=== PATIENT | male | born 1975 ===

== ENCOUNTER 2017-04-16 15:10 | Inpatient (IN) | payer OTHER ==
--- NOTE | 2017-04-16 16:54 | ED PDOC ---
HPI: Male Pain Time Seen by Provider: 04/16/17 16:09 Chief Complaint (Nursing): Dizziness/Lightheaded Chief Complaint (Provider): Progressively Inflamed Testicles History Per: Patient History/Exam Limitations: no limitations Onset/Duration Of Symptoms: Days (ongoing for 2 weeks) Current Symptoms Are (Timing): Still Present Severity: Severe Pain Scale Rating Of: 0 Associated Symptoms: Other (dizziness) Additional Complaint(s): Víctor Winslow is a 41 year old male, with no pertinent past medical history , who presents to the emergency department for progressively inflamed testicles , ongoing for the past 2 weeks. Patient states he lifted something heavy 2 weeks ago; however, provider believes that this is not pertinent to the inflammation due to the severity of his symptoms. Associated dizziness is currently present. Denies scrotal pain to the sight of inflammation. Of note, patient is currently not on any medications. No known drug allergies. PMD: none specified Past Medical History Reviewed: Historical Data, Nursing Documentation, Vital Signs Vital Signs: Last Vital Signs Temp 100.9 F H 04/16/17 15:18 Pulse 132 H 04/16/17 15:18 Resp 20 04/16/17 15:18 BP 99/54 L 04/16/17 15:18 Pulse Ox 99 04/16/17 15:18 - Medical History PMH: No Chronic Diseases - Surgical History Surgical History: No Surg Hx - Family History Family History: States: No Known Family Hx - Social History Current smoker - smoking cessation education provided: No Ex-Smoker (has not smoked in the last 12 months): No Alcohol: None Drugs: Denies - Allergies Allergies/Adverse Reactions: Allergies Allergy/AdvReac Type Severity Reaction Status Date / Time No Known Allergies Allergy Verified 04/16/17 15:22 Review of Systems ROS Statement: Except As Marked, All Systems Reviewed And Found Negative Genitourinary Male: Positive for: Other (progressively inflamed testicles). Negative for: Scrotal Pain Neurological: Positive for: Dizziness Physical Exam - Reviewed Nursing Documentation Reviewed: Yes Vital Signs Reviewed: Yes - Physical Exam Appears: Positive for: Non-toxic, No Acute Distress Head Exam: Positive for: ATRAUMATIC, NORMOCEPHALIC Skin: Positive for: Warm, Dry Cardiovascular/Chest: Positive for: Regular Rate, Rhythm. Negative for: Murmur Respiratory: Positive for: Normal Breath Sounds. Negative for: Respiratory Distress Gastrointestinal/Abdominal: Positive for: Normal Exam, Soft. Negative for: Tenderness Male Genital Exam: Positive for: erythema (minimal), other (grossly enlarged L scrotum 7 by 5 cm, testicles are firm b/l, macerated and indurated skin, serosanguineous drainage from scrotum). Negative for: normal genitalia, bleeding, inguinal tenderness, scrotum tenderness (R), scrotum tenderness (L), testicular tenderness (R), testicular tenderness (L), urethral discharge Neurologic/Psych: Positive for: Alert, Oriented - Laboratory Results Result Diagrams: 04/16/17 17:00 04/16/17 17:00 - ECG O2 Sat by Pulse Oximetry: 99 (RA) Pulse Ox Interpretation: Normal Medical Decision Making Medical Decision Makin:09 Initial Impression: Enlarged scrotum r/o infection Differential Diagnoses include, but are not limited to, testicular cellulitis, sexually transmitted disease, testicular cancer. Scribe Attestation: Documented by Ridge Petit, acting as a scribe for Anastasia Yanes MD. Provider Scribe Attestation: All medical record entries made by the Scribe were at my direction and personally dictated by me. I have reviewed the chart and agree that the record accurately reflects my personal performance of the history, physical exam, medical decision making, and the department course for this patient. I have also personally directed, reviewed, and agree with the discharge instructions and disposition. Disposition - Clinical Impression Clinical Impression: Testicular mass - Patient ED Disposition Is Patient to be Admitted: Yes Doctor Will See Patient In The: Hospital - Disposition Disposition: Transfer of Care Disposition Time: 18:43 Condition: STABLE - Pt Status Changed To: Hospital Disposition Of: Inpatient - Admit Certification Admit to Inpatient:: After my assessment, the patient will require hospitalization for at least two midnights. This is because of the severity of symptoms shown, intensity of services needed, and/or the medical risk in this patient being treated as an outpatient.
[2017-04-16] MEDS ORDERED: Sodium Chloride 0.9% 1,000 ML IV STA (16:59)
[2017-04-16] MEDS ORDERED: ceFAZolin 1 GM in Sodium Chloride 0.9% 100 ML IVPB STA (17:01)
[2017-04-16 17:23] LABS: BASO % 0.3 % (0.0-2.0); EOS % 0.2 % (0.0-4.0); HEMOGLOBIN 11.3 g/dL (12.0-18.0); LYMPH # 1.1 K/uL (1.0-4.3); LYMPH % 24.8 % (20.0-40.0); MEAN CELL VOLUME 90.7 fl (80.0-94.0); MEAN CORPUSCULAR HEMOGLOBIN 29.7 pg (27.0-31.0); MEAN CORPUSCULAR HGB CONC 32.8 g/dL (33.0-37.0); MEAN PLATELET VOLUME 8.5 fl (7.2-11.7); MONO # 0.4 K/uL (0.0-0.8); NEUT # 2.9 K/uL (1.8-7.0); NEUT % 64.7 % (50.0-75.0); NRBC % 0.1 % (0.0-0.0); RBC 3.79 Mil/uL (4.40-5.90); RED CELL DISTRIBUTION WIDTH 16.1 % (11.5-14.5); WHITE BLOOD COUNT 4.5 K/uL (4.8-10.8)
[2017-04-16 17:45] LABS: BLOOD UREA NITROGEN 15 mg/dl (9-20); CALCIUM 8.6 mg/dL (8.4-10.2); GFR AFRICAN-AMERICAN > 60; GFR NON-AFRICAN AMERICAN > 60
--- NOTE | 2017-04-16 18:48 | US ---
HISTORY: enlarged scrotum, grossly enlarged left testis TECHNIQUE: Realtime sonography through the scrotum with color and doppler flow. COMPARISON: None Available. FINDINGS: RIGHT TESTICLE: Measures 4.5 x 1.7 x 2.9 cm. Heterogeneous echotexture is noted without evidence of discrete mass. RIGHT EPIDIDYMIS: Epididymal head measures 0.6 x 0.6 x 0.5 cm. Grossly unremarkable appearance with normal flow. LEFT TESTICLE: Measures 4 x 2.6 x 2.9 cm. Heterogeneous echotexture is also noted. LEFT EPIDIDYMIS: Epididymal head measures 0.9 x 0.8 x 1.1 cm. Grossly unremarkable appearance with normal flow. HYDROCELE: Large hydrocele seen on the right side. VARICOCELE: Mild left-sided varicocele. OTHER FINDINGS: Scrotum sac thickening/edema noted. IMPRESSION: No evidence of testicular torsion. In heterogeneous testicles seen without evidence of discrete mass lesion. Correlate clinically for colitis. Moderate to large left-sided hydrocele.
--- NOTE | 2017-04-16 19:33 | CP.PCM.HP ---
History of Present Illness - History of Present Illness History of Present Illness: 41 yo male with no significant PMH came in complaining of enlarged scrotum since 2 weeks ago after lifting heavy objects. Denied scrotal pain, dysuria or penile discharge. Admitted having on and off fever. Applied some cream on the area given by a friend but did not have any improvement. Present on Admission - Present on Admission Any Indicators Present on Admission: No History of DVT/PE: No History of Uncontrolled Diabetes: No Urinary Catheter: No Decubitus Ulcer Present: No Review of Systems - Review of Systems All systems: reviewed and no additional remarkable complaints except (aside from those mentioned above, 12 point system review were negative by me) Past Patient History - Tetanus Immunizations Tetanus Immunization: Unknown - Past Medical History & Family History Past Medical History?: No Past Family History: Reviewed and not pertinent - Past Social History Smoking Status: Never Smoked Chewing Tobacco Use: No Cigar Use: No Alcohol: None Drugs: Denies - CARDIAC Hx Cardiac Disorders: No - PULMONARY Hx Respiratory Disorders: No - NEUROLOGICAL Hx Neurological Disorder: No - HEENT Hx HEENT Problems: No - RENAL Hx Chronic Kidney Disease: No - ENDOCRINE/METABOLIC Hx Endocrine Disorders: No - HEMATOLOGICAL/ONCOLOGICAL Hx Blood Disorders: No - INTEGUMENTARY Hx Dermatological Problems: No - MUSCULOSKELETAL/RHEUMATOLOGICAL Hx Musculoskeletal Disorders: No - GASTROINTESTINAL Hx Gastrointestinal Disorders: No Hx Vomiting: No - GENITOURINARY/GYNECOLOGICAL Hx Genitourinary Disorders: No Hx Bladder Cancer: No Hx Bladder Stone: No Hx Hematuria: No Hx Incontinence: No Hx Prostate Cancer: No Hx Prostate Problems: No Hx Reproductive Disorders: No Hx Sexually Transmitted Disorders: No Hx Urinary Tract Infection: No - PSYCHIATRIC Hx Psychophysiologic Disorder: No Hx Substance Use: No - SURGICAL HISTORY Hx Surgeries: No - ANESTHESIA Hx Anesthesia: No Hx Anesthesia Reactions: No Hx Malignant Hyperthermia: No Meds Allergies/Adverse Reactions: Allergies Allergy/AdvReac Type Severity Reaction Status Date / Time No Known Allergies Allergy Verified 04/16/17 15:22 Physical Exam - Constitutional Appears: No Acute Distress - Head Exam Head Exam: ATRAUMATIC - Eye Exam Eye Exam: absent: Scleral icterus - ENT Exam ENT Exam: Mucous Membranes Moist - Neck Exam Neck exam: Negative for: Meningismus - Respiratory Exam Respiratory Exam: absent: Rhonchi, Wheezes, Respiratory Distress - Cardiovascular Exam Cardiovascular Exam: REGULAR RHYTHM, +S1, +S2 - GI/Abdominal Exam GI & Abdominal Exam: Soft. absent: Tenderness - Rectal Exam Rectal Exam: Deferred - Exam Exam: Scrotal Swelling (both scrotum enlarged and firm, non-tender; left scrotum much bigger with denuded area). absent: Testicular Tenderness, Uretheral Discharge - Extremities Exam Extremities exam: Negative for: pedal edema - Back Exam Back exam: absent: tenderness - Neurological Exam Neurological exam: Alert, Oriented x3 - Psychiatric Exam Psychiatric exam: Normal Affect - Skin Skin Exam: Dry, Intact Results - Vital Signs Recent Vital Signs: Last Vital Signs Temp 100.9 F H 04/16/17 15:18 Pulse 132 H 04/16/17 15:18 Resp 20 04/16/17 15:18 BP 99/54 L 04/16/17 15:18 Pulse Ox 99 04/16/17 18:43 - Labs Result Diagrams: 04/16/17 17:00 04/16/17 17:00 Labs: Laboratory Results - last 24 hr 04/16/17 04/16/17 17:00 17:00 WBC 4.5 L RBC 3.79 L Hgb 11.3 L Hct 34.4 L MCV 90.7 MCH 29.7 MCHC 32.8 L RDW 16.1 H Plt Count 119 L MPV 8.5 Neut % (Auto) 64.7 Lymph % (Auto) 24.8 [place] % (Auto) 10.0 Eos % (Auto) 0.2 Baso % (Auto) 0.3 Neut # 2.9 Lymph # 1.1 [place] # 0.4 Eos # 0.0 Baso # 0.0 ESR 23 H Sodium 131 L Potassium 4.1 Chloride 98 Carbon Dioxide 24 Anion Gap 13 BUN 15 Creatinine 0.8 Est GFR ( Amer) > 60 Est GFR (Non-Af Amer) > 60 Random Glucose 136 H Calcium 8.6 Assessment & Plan (1) Bilateral hydrocele Status: Acute Comment: admit to med/surg. urology consult with Dr Estes. blood culture x 2. urine culture. Rocephin 1gm IV daily. Doxycycline 100mg PO BID (2) Acute epididymitis Status: Acute Comment: blood culture and urine culture. on Rocephin and Doxycycline (3) Hyponatremia Status: Acute Comment: IV hydration with NSS. BMP in am
[2017-04-16] MEDS: Sodium Chloride 0.9% 1,000 ML IV SCH (20:42)
[2017-04-16 22:20] LABS: URINE BACTERIA RARE (<OCC); URINE BILIRUBIN NEGATIVE (NEGATIVE); URINE BLOOD SMALL (NEGATIVE); URINE CLARITY CLEAR (Clear); URINE COLOR YELLOW (YELLOW); URINE GLUCOSE (UA) NEG (Normal); URINE LEUKOCYTE ESTERASE NEG Leu/uL (Negative); URINE NITRATE NEGATIVE (NEGATIVE); URINE PROTEIN 30 mg/dL (NEGATIVE)
[2017-04-17] MEDS: Sodium Chloride 0.9% 1,000 ML IV SCH ×2 (06:00→16:49)
[2017-04-17 07:59] LABS: BASO % 0.3 % (0.0-2.0); EOS % 0.3 % (0.0-4.0); HEMOGLOBIN 9.7 g/dL (12.0-18.0); LYMPH # 0.7 K/uL (1.0-4.3); LYMPH % 21.3 % (20.0-40.0); MEAN CELL VOLUME 90.9 fl (80.0-94.0); MEAN CORPUSCULAR HEMOGLOBIN 30.3 pg (27.0-31.0); MEAN CORPUSCULAR HGB CONC 33.3 g/dL (33.0-37.0); MEAN PLATELET VOLUME 8.7 fl (7.2-11.7); MONO # 0.3 K/uL (0.0-0.8); MONO % 8.1 % (0.0-10.0); NEUT # 2.3 K/uL (1.8-7.0); NRBC % 0.1 % (0.0-0.0); RBC 3.2 Mil/uL (4.40-5.90); RED CELL DISTRIBUTION WIDTH 16.2 % (11.5-14.5); WHITE BLOOD COUNT 3.2 K/uL (4.8-10.8)
[2017-04-17 08:09] LABS: BLOOD UREA NITROGEN 13 mg/dl (9-20); CALCIUM 7.7 mg/dL (8.4-10.2); GFR AFRICAN-AMERICAN > 60; GFR NON-AFRICAN AMERICAN > 60
[2017-04-17 08:24] LABS: INR 1.18 (0.92-1.08); PARTIAL THROMBOPLASTIN TIME 31.7 SECONDS (23.3-32.5); PROTHROMBIN TIME 12.3 SECONDS (9.6-11.2)
--- NOTE | 2017-04-17 09:51 | CP.PCM.PN ---
Subjective - Date & Time of Evaluation Date of Evaluation: 04/17/17 Time of Evaluation: 09:44 - Subjective Subjective: 41 year ol hisp male admitted with testicular pain for two weeks, Us shows hydrocele with no sign of epididmitis Pt is afibrile,ua shows no wbcc neg le but sig hematuria. Dx L hydrocele ,fever and microhematuria unknown etiology. Suggest CT scan ab.pelv. repeat ua and urine cS will follow. Objective - Vital Signs/Intake and Output Vital Signs (last 24 hours): Temp Pulse Resp BP Pulse Ox 100.2 F H 112 H 18 95/53 L 97 04/17/17 07:29 04/17/17 07:29 04/17/17 07:29 04/17/17 07:29 04/17/17 07:29 - Medications Medications: Current Medications Acetaminophen (Tylenol 325mg Tab) 650 mg PO Q4 PRN PRN Reason: Fever >100.4 F Last Admin: 04/16/17 20:42 Dose: 650 mg Doxycycline Hyclate (Doryx) 100 mg PO Q12 [facility] Last Admin: 04/17/17 09:18 Dose: 100 mg Famotidine (Pepcid) 20 mg PO BID [facility] Last Admin: 04/17/17 09:18 Dose: 20 mg Ceftriaxone Sodium 1 gm/ (Sodium Chloride) 100 mls @ 100 mls/hr IVPB DAILY [facility] Last Admin: 04/17/17 09:20 Dose: 100 mls/hr Sodium Chloride (Sodium Chloride 0.9%) 1,000 mls @ 125 mls/hr IV .Q8H [facility] Stop: 04/17/17 19:53 Last Admin: 04/17/17 06:00 Dose: 125 mls/hr - Labs Labs: 04/17/17 06:15 04/17/17 06:15 PT 12.3 SECONDS (9.6-11.2) H 04/17/17 06:15 INR 1.18 (0.92-1.08) H 04/17/17 06:15 APTT 31.7 SECONDS (23.3-32.5) 04/17/17 06:15
--- NOTE | 2017-04-17 14:50 | CT ---
PROCEDURE: CT abdomen pelvis dated 04/17/2017 HISTORY: Hematuria. Left-sided hydrocele. COMPARISON: None. TECHNIQUE: Contiguous helical/transaxial images of the abdomen and pelvis. Oral contrast was administered. No IV contrast given. Coronal and Sagittal reformats generated. Radiation dose: Total exam DLP = 624.43 mGy-cm. This CT exam was performed using one or more of the following dose reduction techniques: Automated exposure control, adjustment of the mA and/or kV according to patient size, and/or use of iterative reconstruction technique. FINDINGS: LOWER THORAX: Mild atelectasis and or scarring changes right lung base associated with minor pleural thickening and few tiny pleural based calcifications in the posterior sulcus felt to be postinflammatory dystrophic type calcification. No additional pleural based calcifications seen in the lung bases to suggest asbestos exposure however followup CT scan of the chest may be prudent. . No evidence of effusion. No basilar pneumothorax. LIVER: Liver is bowel mildly enlarged measuring just over 20 cm in CC dimension. Liver demonstrates normal attenuation pattern without obvious hepatic mass collection or calcification. . GALLBLADDER AND BILE DUCTS: Gallbladder is appears incompletely distended. No evidence of intraluminal gallbladder calculi PANCREAS: Visualized portions of the pancreas unremarkable. SPLEEN: Spleen exhibits normal size and attenuation pattern without mass collection or calcification. ADRENALS: Enlarged bilateral adrenal glands left greater than right. KIDNEYS AND URETERS: Kidneys exhibit relatively symmetric size. . There is a nonobstructing calculus lower pole left kidney. No other on left-sided no right-sided renal calculi identified. No evidence of right or left-sided hydronephrosis. Note is made of mild infiltration changes within the perinephric fat bilaterally nonspecific and of uncertain etiology. Clinical correlation with urinalysis recommended. BLADDER: Urinary bladder is physiologically distended. No evidence of intraluminal urinary bladder calculi. REPRODUCTIVE: Large left-sided scrotal hydrocele. APPENDIX: Partially air and debris filled nondilated appendix of best seen on the axial image number [id number] and coronal series 61 image number [id number]. No periappendiceal inflammatory changes. BOWEL: Evaluation of the bowel is limited due to the lack of oral contrast material. The stomach is incompletely distended with food debris liquid and air. Incomplete distension presumably accounts for slight thick-walled appearance. Visualized loops of small bowel exhibit normal contour and caliber. No evidence acute mechanical small bowel obstruction. PERITONEUM: No gross free intraperitoneal air. , There is a small amount of infiltration and fluid within the paracolic gutter on the right and possibly on the left side. LYMPH NODES: No significant bulky adenopathy VASCULATURE: No evidence of aortic aneurysm. BONES: No evidence of acute compression fracture nor retropulsed fragments visualized lower thoracic or lumbar spine. Mild multilevel degenerative spondylosis. Small sclerotic density left femoral head could represent bone island or osteoma left femoral head. OTHER FINDINGS: None. IMPRESSION: Mild chronic appearing scarring/atelectasis and pleural thickening associate with a few tiny calcifications right lung base. Findings are likely postinflammatory and not felt to represent prior asbestos exposure however followup CT scan chest could be performed to confirm. Mild hepatomegaly. Enlarged bilateral adrenal glands left larger than right. Small nonobstructing calcification lower pole left kidney. No evidence of additional calculi or hydronephrosis. Infiltration changes of perinephric fat bilaterally nonspecific. Rule out perinephric fat nonspecific inflammation. Large left-sided scrotal hydrocele.
--- NOTE | 2017-04-17 16:14 | CP.PCM.PN ---
Subjective - Date & Time of Evaluation Date of Evaluation: 04/17/17 Time of Evaluation: 15:00 - Subjective Subjective: Patient seen and examined bedside. Feeling a little better but still febrile , Tmax 103, with chills and weak. no acute issues overnight CT abdomen and pelvis showed no acute pathology Objective - Vital Signs/Intake and Output Vital Signs (last 24 hours): Temp Pulse Resp BP Pulse Ox 103 F H 118 H 20 96/63 L 98 04/17/17 16:05 04/17/17 16:05 04/17/17 16:05 04/17/17 16:05 04/17/17 16:05 - Medications Medications: Current Medications Acetaminophen (Tylenol 325mg Tab) 650 mg PO Q4 PRN PRN Reason: Fever >100.4 F Last Admin: 04/17/17 15:47 Dose: 650 mg Doxycycline Hyclate (Doryx) 100 mg PO Q12 [facility] Last Admin: 04/17/17 09:18 Dose: 100 mg Famotidine (Pepcid) 20 mg PO BID [facility] Last Admin: 04/17/17 09:18 Dose: 20 mg Ceftriaxone Sodium 1 gm/ (Sodium Chloride) 100 mls @ 100 mls/hr IVPB DAILY [facility] Last Admin: 04/17/17 09:20 Dose: 100 mls/hr Sodium Chloride (Sodium Chloride 0.9%) 1,000 mls @ 125 mls/hr IV .Q8H [facility] Stop: 04/17/17 19:53 Last Admin: 04/17/17 06:00 Dose: 125 mls/hr - Labs Labs: 04/17/17 06:15 04/17/17 06:15 PT 12.3 SECONDS (9.6-11.2) H 04/17/17 06:15 INR 1.18 (0.92-1.08) H 04/17/17 06:15 APTT 31.7 SECONDS (23.3-32.5) 04/17/17 06:15 - Constitutional Appears: Non-toxic, No Acute Distress - Head Exam Head Exam: ATRAUMATIC, NORMAL INSPECTION, NORMOCEPHALIC - Eye Exam Eye Exam: EOMI, Normal appearance, PERRL Pupil Exam: NORMAL ACCOMODATION - ENT Exam ENT Exam: Mucous Membranes Moist, Normal Exam - Neck Exam Neck Exam: Full ROM, Normal Inspection - Respiratory Exam Respiratory Exam: Clear to Ausculation Bilateral, NORMAL BREATHING PATTERN. absent: Rales, Wheezes - Cardiovascular Exam Cardiovascular Exam: REGULAR RHYTHM, +S1, +S2. absent: RRR - GI/Abdominal Exam GI & Abdominal Exam: Soft, Normal Bowel Sounds. absent: Distended, Guarding, Tenderness, Rebound - Rectal Exam Rectal Exam: Deferred - Exam Exam: Scrotal Swelling. absent: Testicular Tenderness, Uretheral Discharge External exam: Lacerations (large skin maceration from shaft of penis to perineum with no fluctuation , dry no foul smelling) - Extremities Exam Extremities Exam: Full ROM, Normal Capillary Refill, Normal Inspection. absent : Calf Tenderness, Pedal Edema - Back Exam Back Exam: NORMAL INSPECTION - Neurological Exam Neurological Exam: Alert, Awake, CN II-XII Intact, Oriented x3 - Psychiatric Exam Psychiatric exam: Normal Affect, Normal Mood - Skin Skin Exam: Dry, Warm Assessment and Plan - Assessment and Plan (Free Text) Assessment: 41 yo male with no significant PMH came in complaining of enlarged scrotum for 1 month, after lifting heavy objects and macerate skin for 4 days. Denied scrotal pain, dysuria or penile discharge. Admitted having on and off fever. Applied some cream on the area given by a friend but did not have any improvement. In ER found to have Tmax 102. 1. Bilateral hydrocele with suspected acute epididymitis still febrile Follow up blood, urine and urethral cultures check HIV, RPR, G&c cultures Ct abdomen and pelvis showed no acute pathology urology consult appreciated Continue Rocephin and Doxycycline 2. Hyponatremia resolved with IVF 3. Pancytopenia WBC 3 Hgb 9.7 plt 94 K unclear etiology Send anemia work up Check HIV , hepatitis status Check CMP 4. DVT prophylaxis SCD
[2017-04-17 19:25] LABS: ALB/GLOB RATIO 0.8 (1.0-2.1); ALBUMIN 2.5 g/dL (3.5-5.0); ALT/SGPT 72 U/L (21-72); AST/SGOT 75 U/L (17-59); BLOOD UREA NITROGEN 11 mg/dl (9-20); CALCIUM 7.8 mg/dL (8.4-10.2); GFR AFRICAN-AMERICAN > 60; GFR NON-AFRICAN AMERICAN > 60
[2017-04-17 19:49] LABS: IRON 57 ug/dL (49-181)
[2017-04-17 19:59] LABS: % IRON SATURATION 23 % (20-55); TOTAL IRON BINDING CAPACITY 243 ug/dL (250-450)
[2017-04-18 07:11] LABS: SQUAMOUS EPITHIAL < 1 /hpf (0-5); URINE BILIRUBIN NEGATIVE (NEGATIVE); URINE BLOOD MODERATE (NEGATIVE); URINE CLARITY CLEAR (Clear); URINE COLOR YELLOW (YELLOW); URINE GLUCOSE (UA) 150 mg/dL (Normal); URINE LEUKOCYTE ESTERASE NEG Leu/uL (Negative); URINE NITRATE NEGATIVE (NEGATIVE); URINE PROTEIN NEGATIVE (NEGATIVE)
[2017-04-18 07:30] LABS: EOS % 0.4 % (0.0-4.0); HEMOGLOBIN 9.5 g/dL (12.0-18.0); LYMPH # 0.8 K/uL (1.0-4.3); LYMPH % 25.7 % (20.0-40.0); MEAN CELL VOLUME 91.6 fl (80.0-94.0); MEAN CORPUSCULAR HEMOGLOBIN 29.8 pg (27.0-31.0); MEAN CORPUSCULAR HGB CONC 32.5 g/dL (33.0-37.0); MEAN PLATELET VOLUME 9.1 fl (7.2-11.7); MONO # 0.2 K/uL (0.0-0.8); MONO % 6.4 % (0.0-10.0); NEUT # 2.1 K/uL (1.8-7.0); NEUT % 66.5 % (50.0-75.0); NRBC % 0.1 % (0.0-0.0); RBC 3.19 Mil/uL (4.40-5.90); RED CELL DISTRIBUTION WIDTH 16.7 % (11.5-14.5); WHITE BLOOD COUNT 3.1 K/uL (4.8-10.8)
--- NOTE | 2017-04-18 10:59 | CP.PCM.PN ---
Subjective - Date & Time of Evaluation Date of Evaluation: 04/18/17 Time of Evaluation: 11:00 - Subjective Subjective: Patient seen and examined bedside. Feeling better but still persistently febrile with Tmax 103 last 24 hours.Denies any CP, SOb, palpittaions, PND BP stable WBC Objective - Vital Signs/Intake and Output Vital Signs (last 24 hours): Temp Pulse Resp BP Pulse Ox 98.6 F 100 H 20 103/65 99 04/18/17 08:27 04/18/17 08:27 04/18/17 08:27 04/18/17 08:27 04/18/17 08:27 - Medications Medications: Current Medications Acetaminophen (Tylenol 325mg Tab) 650 mg PO Q4 PRN PRN Reason: Fever >100.4 F Last Admin: 04/18/17 01:54 Dose: 650 mg Doxycycline Hyclate (Doryx) 100 mg PO Q12 [facility] Last Admin: 04/18/17 09:18 Dose: 100 mg Famotidine (Pepcid) 20 mg PO BID [facility] Last Admin: 04/18/17 09:18 Dose: 20 mg Ceftriaxone Sodium 1 gm/ (Sodium Chloride) 100 mls @ 100 mls/hr IVPB DAILY [facility] Last Admin: 04/18/17 09:17 Dose: 100 mls/hr Vancomycin HCl 1 gm/ Sodium (Chloride) 250 mls @ 166.667 mls/hr IVPB Q12 [facility] Last Admin: 04/18/17 09:17 Dose: 166.667 mls/hr - Labs Labs: 04/18/17 06:30 04/17/17 18:30 PT 12.3 SECONDS (9.6-11.2) H 04/17/17 06:15 INR 1.18 (0.92-1.08) H 04/17/17 06:15 APTT 31.7 SECONDS (23.3-32.5) 04/17/17 06:15 - Constitutional Appears: Non-toxic, No Acute Distress - Head Exam Head Exam: ATRAUMATIC, NORMAL INSPECTION, NORMOCEPHALIC - Eye Exam Eye Exam: EOMI, Normal appearance, PERRL Pupil Exam: NORMAL ACCOMODATION - ENT Exam ENT Exam: Mucous Membranes Moist, Normal Exam - Neck Exam Neck Exam: Full ROM, Normal Inspection - Respiratory Exam Respiratory Exam: Clear to Ausculation Bilateral, NORMAL BREATHING PATTERN. absent: Rales, Rhonchi, Wheezes - Cardiovascular Exam Cardiovascular Exam: REGULAR RHYTHM, RRR, +S1, +S2. absent: JVD - GI/Abdominal Exam GI & Abdominal Exam: Soft, Normal Bowel Sounds. absent: Distended, Guarding, Tenderness, Rebound - Rectal Exam Rectal Exam: Deferred - Exam Exam: Scrotal Swelling. absent: Testicular Tenderness, Uretheral Discharge External exam: Lacerations (large skin maceration from shaft of penis to perineum with no fluctuation or faul smell) - Extremities Exam Extremities Exam: Full ROM, Normal Capillary Refill, Normal Inspection. absent : Pedal Edema - Back Exam Back Exam: NORMAL INSPECTION - Neurological Exam Neurological Exam: Alert, Awake, CN II-XII Intact, Oriented x3 - Psychiatric Exam Psychiatric exam: Normal Affect, Normal Mood - Skin Skin Exam: Dry, Normal Color, Warm Assessment and Plan - Assessment and Plan (Free Text) Assessment: 41 yo male with no significant PMH came in complaining of enlarged scrotum for 1 month, after lifting heavy objects and macerate skin for 4 days. Denied scrotal pain, dysuria or penile discharge. Admitted having on and off fever. Applied some cream on the area given by a friend but did not have any improvement. In ER found to have Tmax 102. Urology consulted, cultures sent and started on Doxycyclinand rocephine IV. Continuous to be persistantly febrile. 1. Bilateral hydrocele with suspected acute epididymitis still febrile, Tmax 103 follow up blood and urine cx Wound cx growing staph aureus and gram negative doc Continue rocephin and Doxycycline . Started Vancomycin IV ID consulted HIV - not reactive f/U RPR, G&c cultures Ct abdomen and pelvis showed no acute pathology urology consult appreciated Continue current management 2. Hyponatremia on IVF 3. Pancytopenia WBC 3 Hgb 9.7 plt 94 K unclear etiology anemia work up, showed normal Vitamin B12 ,Very elevated Ferritin levels 3040 HIV not reactive hepatitis status -negative Hematology eval ? 4. DVT prophylaxis SCD
--- NOTE | 2017-04-18 11:01 | CP.PCM.PN ---
Subjective - Date & Time of Evaluation Date of Evaluation: 04/18/17 Time of Evaluation: 10:58 - Subjective Subjective: Ultrasound of scrotum shows hydrocele without evidence, ct shows small non obstructing stone in kidney which would explain micro hematuria, no explanation for fever. A non obstructing calculi benign hydrocele. P no further gu Rx on this admission. [place] Objective - Vital Signs/Intake and Output Vital Signs (last 24 hours): Temp Pulse Resp BP Pulse Ox 98.6 F 100 H 20 103/65 99 04/18/17 08:27 04/18/17 08:27 04/18/17 08:27 04/18/17 08:27 04/18/17 08:27 - Medications Medications: Current Medications Acetaminophen (Tylenol 325mg Tab) 650 mg PO Q4 PRN PRN Reason: Fever >100.4 F Last Admin: 04/18/17 01:54 Dose: 650 mg Doxycycline Hyclate (Doryx) 100 mg PO Q12 [facility] Last Admin: 04/18/17 09:18 Dose: 100 mg Famotidine (Pepcid) 20 mg PO BID [facility] Last Admin: 04/18/17 09:18 Dose: 20 mg Ceftriaxone Sodium 1 gm/ (Sodium Chloride) 100 mls @ 100 mls/hr IVPB DAILY [facility] Last Admin: 04/18/17 09:17 Dose: 100 mls/hr Vancomycin HCl 1 gm/ Sodium (Chloride) 250 mls @ 166.667 mls/hr IVPB Q12 [facility] Last Admin: 04/18/17 09:17 Dose: 166.667 mls/hr - Labs Labs: 04/18/17 06:30 04/17/17 18:30 PT 12.3 SECONDS (9.6-11.2) H 04/17/17 06:15 INR 1.18 (0.92-1.08) H 04/17/17 06:15 APTT 31.7 SECONDS (23.3-32.5) 04/17/17 06:15
--- NOTE | 2017-04-18 11:37 | CP.PCM.CON ---
History of Present Illness - History of Present Illness History of Present Illness: Infectious Disease Consultation Note- asked to see this patient at the request of Hospitalist for fever. HPI- Pt. is a 41 year old male with no PMH who was admitted to the hospital with c/o enlarged scrotum for the past 4 weeks. Pt. explains he lifted a heavy object 4 weeks ago and after that he developed scrotal swelling and pain and apaprently he applied some ointment given by a friend on the area and since then he has developed skin damage to the region along with discharge from the scrotal region . He also states he has been having fever. He denies any dysurea and denies any penile discharge. He denies ever having anything similar to this before. Denies any animal or insect bites to the region. Denies any cough, denies any [place], denies any sob, denies any chest pain, denies any abd. pain, denies any diarrhea On US and Ct report he is found to have large left hydroele Review of Systems - Review of Systems Review of Systems: as stated in HPI. Past Patient History - Tetanus Immunizations Tetanus Immunization: Unknown - Past Medical History & Family History Past Medical History?: No - Past Social History Smoking Status: Never Smoked Alcohol: None Drugs: Denies Home Situation {Lives}: With Family - CARDIAC Hx Cardiac Disorders: No - PULMONARY Hx Respiratory Disorders: No - NEUROLOGICAL Hx Neurological Disorder: No - HEENT Hx HEENT Problems: No - RENAL Hx Chronic Kidney Disease: No - ENDOCRINE/METABOLIC Hx Endocrine Disorders: No - HEMATOLOGICAL/ONCOLOGICAL Hx Blood Disorders: No - INTEGUMENTARY Hx Dermatological Problems: No - MUSCULOSKELETAL/RHEUMATOLOGICAL Hx Falls: No - GASTROINTESTINAL Hx Gastrointestinal Disorders: No Hx Vomiting: No - GENITOURINARY/GYNECOLOGICAL Hx Genitourinary Disorders: No - PSYCHIATRIC Hx Psychophysiologic Disorder: No Hx Substance Use: No - SURGICAL HISTORY Hx Surgeries: No - ANESTHESIA Hx Anesthesia: No Hx Anesthesia Reactions: No Hx Malignant Hyperthermia: No Meds Allergies/Adverse Reactions: Allergies Allergy/AdvReac Type Severity Reaction Status Date / Time No Known Allergies Allergy Verified 04/16/17 15:22 - Medications Medications: Current Medications Acetaminophen (Tylenol 325mg Tab) 650 mg PO Q4 PRN PRN Reason: Fever >100.4 F Last Admin: 04/18/17 01:54 Dose: 650 mg Doxycycline Hyclate (Doryx) 100 mg PO Q12 [facility] Last Admin: 04/18/17 09:18 Dose: 100 mg Famotidine (Pepcid) 20 mg PO BID [facility] Last Admin: 04/18/17 09:18 Dose: 20 mg Ceftriaxone Sodium 1 gm/ (Sodium Chloride) 100 mls @ 100 mls/hr IVPB DAILY [facility] Last Admin: 04/18/17 09:17 Dose: 100 mls/hr Vancomycin HCl 1 gm/ Sodium (Chloride) 250 mls @ 166.667 mls/hr IVPB Q12 [facility] Last Admin: 04/18/17 09:17 Dose: 166.667 mls/hr Vancomycin HCl 1 gm/ Sodium (Chloride) 250 mls @ 166.667 mls/hr IVPB DAILY [facility] Physical Exam - Constitutional Appears: No Acute Distress - Head Exam Head Exam: ATRAUMATIC - Eye Exam Eye Exam: PERRL - ENT Exam ENT Exam: Normal Oropharynx - Respiratory Exam Respiratory Exam: Clear to Auscultation Bilateral, NORMAL BREATHING PATTERN - Cardiovascular Exam Cardiovascular Exam: RRR, +S1, +S2 - GI/Abdominal Exam GI & Abdominal Exam: Normal Bowel Sounds, Soft Additional comments: NT, ND - Exam Additional comments: scrotal swelling and edema with areas of denuded sloughed off skin and minimal clear discharge, slightly erythematous - Extremities Exam Extremities exam: Positive for: normal inspection Results - Vital Signs Recent Vital Signs: Last Vital Signs Temp 98.6 F 04/18/17 08:27 Pulse 100 H 04/18/17 08:27 Resp 20 04/18/17 08:27 BP 103/65 04/18/17 08:27 Pulse Ox 99 04/18/17 08:27 - Labs Result Diagrams: 04/18/17 06:30 04/17/17 18:30 Labs: Laboratory Results - last 24 hr 04/17/17 04/17/17 04/17/17 09:53 18:30 18:30 WBC RBC Hgb Hct MCV MCH MCHC RDW Plt Count MPV Neut % (Auto) Lymph % (Auto) [place] % (Auto) Eos % (Auto) Baso % (Auto) Neut # Lymph # [place] # Eos # Baso # Retic Count 2.6 H Sodium Potassium Chloride Carbon Dioxide Anion Gap BUN Creatinine Est GFR ( Amer) Est GFR (Non-Af Amer) Random Glucose Calcium Iron TIBC % Saturation Transferrin Ferritin Total Bilirubin AST ALT Alkaline Phosphatase Total Protein Albumin Globulin Albumin/Globulin Ratio Vitamin B12 Urine Color Yellow Urine Clarity Clear Urine pH 7.0 Ur Specific [place] 1.005 Urine Protein Negative Urine Glucose (UA) 150 Urine Ketones Negative Urine Blood Moderate Urine Nitrate Negative Urine Bilirubin Negative Urine Urobilinogen 2.0 Ur Leukocyte Esterase Neg Urine RBC (Auto) 2 Urine Microscopic WBC < 1 Ur Squamous Epith Cells < 1 HIV-1 Ab Rapid Screen Non reactive 04/17/17 04/17/17 04/17/17 18:30 18:30 18:30 WBC RBC Hgb Hct MCV MCH MCHC RDW Plt Count MPV Neut % (Auto) Lymph % (Auto) [place] % (Auto) Eos % (Auto) Baso % (Auto) Neut # Lymph # [place] # Eos # Baso # Retic Count Sodium 130 L Potassium 3.8 Chloride 101 Carbon Dioxide 23 Anion Gap 10 BUN 11 Creatinine 0.7 L Est GFR ( Amer) > 60 Est GFR (Non-Af Amer) > 60 Random Glucose 203 H Calcium 7.8 L Iron 57 TIBC 243 L % Saturation 23 Transferrin 170.47 L Ferritin 3040.0 Total Bilirubin 1.3 AST 75 H ALT 72 Alkaline Phosphatase 111 Total Protein 5.6 L Albumin 2.5 L Globulin 3.0 Albumin/Globulin Ratio 0.8 L Vitamin B12 > 1000 H Urine Color Urine Clarity Urine pH Ur Specific [place] Urine Protein Urine Glucose (UA) Urine Ketones Urine Blood Urine Nitrate Urine Bilirubin Urine Urobilinogen Ur Leukocyte Esterase Urine RBC (Auto) Urine Microscopic WBC Ur Squamous Epith Cells HIV-1 Ab Rapid Screen 04/18/17 06:30 WBC 3.1 L RBC 3.19 L Hgb 9.5 L Hct 29.2 L MCV 91.6 MCH 29.8 MCHC 32.5 L RDW 16.7 H Plt Count 78 L MPV 9.1 Neut % (Auto) 66.5 Lymph % (Auto) 25.7 [place] % (Auto) 6.4 Eos % (Auto) 0.4 Baso % (Auto) 1.0 Neut # 2.1 Lymph # 0.8 L [place] # 0.2 Eos # 0.0 Baso # 0.0 Retic Count Sodium Potassium Chloride Carbon Dioxide Anion Gap BUN Creatinine Est GFR ( Amer) Est GFR (Non-Af Amer) Random Glucose Calcium Iron TIBC % Saturation Transferrin Ferritin Total Bilirubin AST ALT Alkaline Phosphatase Total Protein Albumin Globulin Albumin/Globulin Ratio Vitamin B12 Urine Color Urine Clarity Urine pH Ur Specific [place] Urine Protein Urine Glucose (UA) Urine Ketones Urine Blood Urine Nitrate Urine Bilirubin Urine Urobilinogen Ur Leukocyte Esterase Urine RBC (Auto) Urine Microscopic WBC Accession No. : [id number] Patient Name / ID : TONG Smith / [id number] Exam Date : 04/17/2017 13:40:09 ( Approved ) Study Comment : Sex / Age : M / 41Y Creator : Facundo Soto MD Dictator : Facundo Soto MD Hospitality Recruiter : Appellate Conferee : Facundo Soto MD Approver2 : Report Date : 04/17/2017 14:43:53 My Comment : PROCEDURE: CT abdomen pelvis dated 04/17/2017 HISTORY: Hematuria. Left-sided hydrocele. COMPARISON: None. TECHNIQUE: Contiguous helical/transaxial images of the abdomen and pelvis. Oral contrast was administered. No IV contrast given. Coronal and Sagittal reformats generated. Radiation dose: Total exam DLP = 624.43 mGy-cm. This CT exam was performed using one or more of the following dose reduction techniques: Automated exposure control, adjustment of the mA and/or kV according to patient size, and/or use of iterative reconstruction technique. FINDINGS: LOWER THORAX: Mild atelectasis and or scarring changes right lung base associated with minor pleural thickening and few tiny pleural based calcifications in the posterior sulcus felt to be postinflammatory dystrophic type calcification. No additional pleural based calcifications seen in the lung bases to suggest asbestos exposure however followup CT scan of the chest may be prudent. . No evidence of effusion. No basilar pneumothorax. LIVER: Liver is bowel mildly enlarged measuring just over 20 cm in CC dimension. Liver demonstrates normal attenuation pattern without obvious hepatic mass collection or calcification. . GALLBLADDER AND BILE DUCTS: Gallbladder is appears incompletely distended. No evidence of intraluminal gallbladder calculi PANCREAS: Visualized portions of the pancreas unremarkable. SPLEEN: Spleen exhibits normal size and attenuation pattern without mass collection or calcification. ADRENALS: Enlarged bilateral adrenal glands left greater than right. KIDNEYS AND URETERS: Kidneys exhibit relatively symmetric size. . There is a nonobstructing calculus lower pole left kidney. No other on left-sided no right-sided renal calculi identified. No evidence of right or left-sided hydronephrosis. Note is made of mild infiltration changes within the perinephric fat bilaterally nonspecific and of uncertain etiology. Clinical correlation with urinalysis recommended. BLADDER: Urinary bladder is physiologically distended. No evidence of intraluminal urinary bladder calculi. REPRODUCTIVE: Large left-sided scrotal hydrocele. APPENDIX: Partially air and debris filled nondilated appendix of best seen on the axial image number [id number] and coronal series 61 image number [id number]. No periappendiceal inflammatory changes. BOWEL: Evaluation of the bowel is limited due to the lack of oral contrast material. The stomach is incompletely distended with food debris liquid and air. Incomplete distension presumably accounts for slight thick-walled appearance. Visualized loops of small bowel exhibit normal contour and caliber. No evidence acute mechanical small bowel obstruction. PERITONEUM: No gross free intraperitoneal air. , There is a small amount of infiltration and fluid within the paracolic gutter on the right and possibly on the left side. LYMPH NODES: No significant bulky adenopathy VASCULATURE: No evidence of aortic aneurysm. BONES: No evidence of acute compression fracture nor retropulsed fragments visualized lower thoracic or lumbar spine. Mild multilevel degenerative spondylosis. Small sclerotic density left femoral head could represent bone island or osteoma left femoral head. OTHER FINDINGS: None. IMPRESSION: Mild chronic appearing scarring/atelectasis and pleural thickening associate with a few tiny calcifications right lung base. Findings are likely postinflammatory and not felt to represent prior asbestos exposure however followup CT scan chest could be performed to confirm. Mild hepatomegaly. Enlarged bilateral adrenal glands left larger than right. Small nonobstructing calcification lower pole left kidney. No evidence of additional calculi or hydronephrosis. Infiltration changes of perinephric fat bilaterally nonspecific. Rule out perinephric fat nonspecific inflammation. Large left-sided scrotal hydrocele.Ur Squamous Epith Cells HIV-1 Ab Rapid Screen Microbiology 04/16/17 21:48 Urine Urine Culture - Final No Growth (<1,000 CFU/ML) 04/16/17 17:00 Scrotum Gram Stain - Preliminary 04/16/17 17:00 Scrotum Wound Culture - Preliminary Gram Negative Amadeo Staphylococcus Aureus 04/16/17 21:48 Blood-Venous Blood Culture - Preliminary NO GROWTH AFTER 24 HOURS Assessment & Plan (1) Left hydrocele Status: Acute - Assessment and Plan (Free Text) Assessment: A?p- 41 year old male admitted with testicular pain, al and fever found to have large left hydrocele on imaging, no hydronephrosis on ct report. source of fever most like as prelim cx of the scrotal discharge GNR and staph. await blood cx results. check urine cx as well. check urine GC/chlamydia and HIV AB as well. check RPR. advise to continue with IV doxycycline and ceftriaoxne pending exact ID and sensitivity of the GNR. start IV vancomycin as well pending staph ID and sensitivity. Keep trough <15. All above d/w patient and the hospitalist. Thank you for allowing me to take part in the care of this patient.
[2017-04-18 11:40] LABS: HEPATITIS B SURFACE AG NEGATIVE (NEGATIVE)
[2017-04-18 11:45] LABS: HEPATITIS A IGM NEGATIVE (NEGATIVE)
[2017-04-18 11:46] LABS: HEPATITIS B CORE AB NEGATIVE (NEGATIVE)
[2017-04-18 11:57] LABS: HEPATITIS C ANTIBODY NEGATIVE (NEGATIVE)
[2017-04-18 12:14] LABS: FOLATE 8.9 ng/mL
--- NOTE | 2017-04-19 11:37 | CP.PCM.PN ---
Subjective - Date & Time of Evaluation Date of Evaluation: 04/19/17 Time of Evaluation: 11:30 - Subjective Subjective: Febrile to 103 at [place] , no fever this am so far denies cough no SOB no CP no abd pain no scrotal pain , no pruritus , no urethral discharge no diarrhea Objective - Vital Signs/Intake and Output Vital Signs (last 24 hours): Temp Pulse Resp BP Pulse Ox 97.6 F 85 18 94/59 L 99 04/19/17 07:39 04/19/17 07:39 04/19/17 07:39 04/19/17 07:39 04/19/17 07:39 - Medications Medications: Current Medications Acetaminophen (Tylenol 325mg Tab) 650 mg PO Q4 PRN PRN Reason: Fever >100.4 F Last Admin: 04/18/17 22:44 Dose: 650 mg Doxycycline Hyclate (Doryx) 100 mg PO Q12 [facility] Last Admin: 04/19/17 09:32 Dose: 100 mg Famotidine (Pepcid) 20 mg PO BID [facility] Last Admin: 04/19/17 09:32 Dose: 20 mg Ceftriaxone Sodium 1 gm/ (Sodium Chloride) 100 mls @ 100 mls/hr IVPB DAILY [facility] Last Admin: 04/19/17 09:32 Dose: 100 mls/hr Vancomycin HCl 1 gm/ Sodium (Chloride) 250 mls @ 166.667 mls/hr IVPB Q12 [facility] Last Admin: 04/19/17 09:32 Dose: 166.667 mls/hr - Labs Labs: 04/18/17 06:30 04/17/17 18:30 PT 12.3 SECONDS (9.6-11.2) H 04/17/17 06:15 INR 1.18 (0.92-1.08) H 04/17/17 06:15 APTT 31.7 SECONDS (23.3-32.5) 04/17/17 06:15 - Constitutional Appears: No Acute Distress - Head Exam Head Exam: ATRAUMATIC, NORMAL INSPECTION, NORMOCEPHALIC - Eye Exam Eye Exam: EOMI, Normal appearance, PERRL Pupil Exam: NORMAL ACCOMODATION - ENT Exam ENT Exam: Mucous Membranes Moist, Normal External Ear Exam - Neck Exam Neck Exam: Full ROM. absent: Meningismus - Respiratory Exam Respiratory Exam: NORMAL BREATHING PATTERN. absent: Respiratory Distress - Cardiovascular Exam Cardiovascular Exam: REGULAR RHYTHM, +S1, +S2 - GI/Abdominal Exam GI & Abdominal Exam: Soft, Normal Bowel Sounds. absent: Tenderness - Exam Exam: Scrotal Swelling (with dry ulcers on scrotal skin, and some desquamation). absent: Testicular Tenderness, Uretheral Discharge - Neurological Exam Neurological Exam: Alert, Awake, CN II-XII Intact, Normal Gait, Oriented x3 Neuro motor strength exam: Left Upper Extremity: 5, Right Upper Extremity: 5, Left Lower Extremity: 5, Right Lower Extremity: 5 - Psychiatric Exam Psychiatric exam: Normal Affect, Normal Mood - Skin Skin Exam: Dry, Normal Color, Warm Assessment and Plan - Assessment and Plan (Free Text) Assessment: 41 yo male with no significant PMH came in complaining of enlarged scrotum for 1 month, after lifting heavy objects and macerate scrotal skin for 4 days. Denied scrotal pain, pruritus , dysuria or penile discharge. Admitted having on and off fever. In ER found to be febrile to 102.. 1. Fever, Scrotal Swelling with dry ulceration unclear etiology still febrile last night Tmax 103 Wound cx growing ESBL E coli and MSSA Blood c/s and Urine c/s : negative Empirically started on IV rocephin , Doxycycline and Vancomycin IV- changed by Dr Rick to IV Meropenem/Vanco after c/s showed ESBL E coli HIV - non reactive RPR : neg Ct abdomen and pelvis showed no acute pathology except enlarged adrenals urology consulted Continue current management 2. Hyponatremia on IVF 3. Pancytopenia WBC 3 Hgb 9.7 plt 94 K unclear etiology anemia work up, showed normal Vitamin B12 ,Very elevated Ferritin levels 3040 HIV not reactive hepatitis status -negative Hematology eval - Dr Melgar 4. DVT prophylaxis SCD no anticoag sec to low Platelet
--- NOTE | 2017-04-19 11:38 | CP.PCM.PN ---
Subjective - Date & Time of Evaluation Date of Evaluation: 04/19/17 Time of Evaluation: 11:38 - Subjective Subjective: ID Note- Pt was seen and examined today. Pt. had fever of 103 last night. he has been afebrile since midnight and denies any chills or any complaints now , however , he states when he had the fever at midnight he did have chills. denies any dysurea, denies any diarrhea,d enies any cough. continues to have scrotal swelling. Objective - Vital Signs/Intake and Output Vital Signs (last 24 hours): Temp Pulse Resp BP Pulse Ox 97.6 F 85 18 94/59 L 99 04/19/17 07:39 04/19/17 07:39 04/19/17 07:39 04/19/17 07:39 04/19/17 07:39 - Medications Medications: Current Medications Acetaminophen (Tylenol 325mg Tab) 650 mg PO Q4 PRN PRN Reason: Fever >100.4 F Last Admin: 04/18/17 22:44 Dose: 650 mg Doxycycline Hyclate (Doryx) 100 mg PO Q12 [facility] Last Admin: 04/19/17 09:32 Dose: 100 mg Famotidine (Pepcid) 20 mg PO BID [facility] Last Admin: 04/19/17 09:32 Dose: 20 mg Ceftriaxone Sodium 1 gm/ (Sodium Chloride) 100 mls @ 100 mls/hr IVPB DAILY [facility] Last Admin: 04/19/17 09:32 Dose: 100 mls/hr Vancomycin HCl 1 gm/ Sodium (Chloride) 250 mls @ 166.667 mls/hr IVPB Q12 [facility] Last Admin: 04/19/17 09:32 Dose: 166.667 mls/hr - Labs Labs: - Additional Findings Additional findings: - Constitutional Appears: No Acute Distress - Head Exam Head Exam: ATRAUMATIC - Eye Exam Eye Exam: PERRL - ENT Exam ENT Exam: Normal Oropharynx - Respiratory Exam Respiratory Exam: Clear to Auscultation Bilateral, NORMAL BREATHING PATTERN - Cardiovascular Exam Cardiovascular Exam: RRR, +S1, +S2 - GI/Abdominal Exam GI & Abdominal Exam: Normal Bowel Sounds, Soft Additional comments: NT, ND - Exam Additional comments: scrotal swelling and edema with areas of denuded sloughed off skin and minimal clear discharge, slightly erythematous - Extremities Exam Extremities exam: Positive for: normal inspection Laboratory Results - last 72 hr 04/16/17 04/16/17 04/16/17 17:00 17:00 21:48 WBC 4.5 L RBC 3.79 L Hgb 11.3 L Hct 34.4 L MCV 90.7 MCH 29.7 MCHC 32.8 L RDW 16.1 H Plt Count 119 L MPV 8.5 Neut % (Auto) 64.7 Lymph % (Auto) 24.8 [place] % (Auto) 10.0 Eos % (Auto) 0.2 Baso % (Auto) 0.3 Neut # 2.9 Lymph # 1.1 [place] # 0.4 Eos # 0.0 Baso # 0.0 ESR 23 H Retic Count PT INR APTT Sodium 131 L Potassium 4.1 Chloride 98 Carbon Dioxide 24 Anion Gap 13 BUN 15 Creatinine 0.8 Est GFR ( Amer) > 60 Est GFR (Non-Af Amer) > 60 Random Glucose 136 H Calcium 8.6 Iron TIBC % Saturation Transferrin Ferritin Total Bilirubin AST ALT Alkaline Phosphatase Total Protein Albumin Globulin Albumin/Globulin Ratio Vitamin B12 Folate Urine Color Yellow Urine Clarity Clear Urine pH 7.[address] [place] 1.014 Urine Protein 30 Urine Glucose (UA) Neg Urine Ketones Negative Urine Blood Small Urine Nitrate Negative Urine Bilirubin Negative Urine Urobilinogen 2.0 Ur Leukocyte Esterase Neg Urine RBC (Auto) 30 H Urine Microscopic WBC 1 Ur Squamous Epith Cells Urine Bacteria Rare RPR Hepatitis A IgM Ab Hep Bs Antigen Hep B Core IgM Ab Hepatitis C Antibody HIV-1 Ab Rapid Screen 04/17/17 04/17/17 04/17/17 06:15 06:15 06:15 WBC 3.2 L RBC 3.20 L Hgb 9.7 L Hct 29.1 L MCV 90.9 MCH 30.3 MCHC 33.3 RDW 16.2 H Plt Count 94 L D MPV 8.7 Neut % (Auto) 70.0 Lymph % (Auto) 21.3 [place] % (Auto) 8.1 Eos % (Auto) 0.3 Baso % (Auto) 0.3 Neut # 2.3 Lymph # 0.7 L [place] # 0.3 Eos # 0.0 Baso # 0.0 ESR Retic Count PT 12.3 H INR 1.18 H APTT 31.7 Sodium 135 Potassium 3.8 Chloride 104 Carbon Dioxide 24 Anion Gap 10 BUN 13 Creatinine 0.6 L Est GFR ( Amer) > 60 Est GFR (Non-Af Amer) > 60 Random Glucose 148 H Calcium 7.7 L Iron TIBC % Saturation Transferrin Ferritin Total Bilirubin AST ALT Alkaline Phosphatase Total Protein Albumin Globulin Albumin/Globulin Ratio Vitamin B12 Folate Urine Color Urine Clarity Urine pH Ur Specific [place] Urine Protein Urine Glucose (UA) Urine Ketones Urine Blood Urine Nitrate Urine Bilirubin Urine Urobilinogen Ur Leukocyte Esterase Urine RBC (Auto) Urine Microscopic WBC Ur Squamous Epith Cells Urine Bacteria RPR Hepatitis A IgM Ab Hep Bs Antigen Hep B Core IgM Ab Hepatitis C Antibody HIV-1 Ab Rapid Screen 04/17/17 04/17/17 04/17/17 09:53 18:30 18:30 WBC RBC Hgb Hct MCV MCH MCHC RDW Plt Count MPV Neut % (Auto) Lymph % (Auto) [place] % (Auto) Eos % (Auto) Baso % (Auto) Neut # Lymph # [place] # Eos # Baso # ESR Retic Count PT INR APTT Sodium Potassium Chloride Carbon Dioxide Anion Gap BUN Creatinine Est GFR ( Amer) Est GFR (Non-Af Amer) Random Glucose Calcium Iron TIBC % Saturation Transferrin Ferritin Total Bilirubin AST ALT Alkaline Phosphatase Total Protein Albumin Globulin Albumin/Globulin Ratio Vitamin B12 Folate Urine Color Yellow Urine Clarity Clear Urine pH 7.[address] [place] 1.005 Urine Protein Negative Urine Glucose (UA) 150 Urine Ketones Negative Urine Blood Moderate Urine Nitrate Negative Urine Bilirubin Negative Urine Urobilinogen 2.0 Ur Leukocyte Esterase Neg Urine RBC (Auto) 2 Urine Microscopic WBC < 1 Ur Squamous Epith Cells < 1 Urine Bacteria RPR Nonreactive Hepatitis A IgM Ab Hep Bs Antigen Hep B Core IgM Ab Hepatitis C Antibody HIV-1 Ab Rapid Screen Non reactive 04/17/17 04/17/17 04/17/17 18:30 18:30 18:30 WBC RBC Hgb Hct MCV MCH MCHC RDW Plt Count MPV Neut % (Auto) Lymph % (Auto) [place] % (Auto) Eos % (Auto) Baso % (Auto) Neut # Lymph # [place] # Eos # Baso # ESR Retic Count 2.6 H PT INR APTT Sodium 130 L Potassium 3.8 Chloride 101 Carbon Dioxide 23 Anion Gap 10 BUN 11 Creatinine 0.7 L Est GFR ( Amer) > 60 Est GFR (Non-Af Amer) > 60 Random Glucose 203 H Calcium 7.8 L Iron 57 TIBC 243 L % Saturation 23 Transferrin Ferritin 3040.0 Total Bilirubin 1.3 AST 75 H ALT 72 Alkaline Phosphatase 111 Total Protein 5.6 L Albumin 2.5 L Globulin 3.0 Albumin/Globulin Ratio 0.8 L Vitamin B12 > 1000 H Folate 8.9 Urine Color Urine Clarity Urine pH Ur Specific [place] Urine Protein Urine Glucose (UA) Urine Ketones Urine Blood Urine Nitrate Urine Bilirubin Urine Urobilinogen Ur Leukocyte Esterase Urine RBC (Auto) Urine Microscopic WBC Ur Squamous Epith Cells Urine Bacteria RPR Hepatitis A IgM Ab Hep Bs Antigen Hep B Core IgM Ab Hepatitis C Antibody HIV-1 Ab Rapid Screen 04/17/17 04/17/17 04/18/17 18:30 20:00 06:30 WBC 3.1 L RBC 3.19 L Hgb 9.5 L Hct 29.2 L MCV 91.6 MCH 29.8 MCHC 32.5 L RDW 16.7 H Plt Count 78 L MPV 9.1 Neut % (Auto) 66.5 Lymph % (Auto) 25.7 [place] % (Auto) 6.4 Eos % (Auto) 0.4 Baso % (Auto) 1.0 Neut # 2.1 Lymph # 0.8 L [place] # 0.2 Eos # 0.0 Baso # 0.0 ESR Retic Count PT INR APTT Sodium Potassium Chloride Carbon Dioxide Anion Gap BUN Creatinine Est GFR ( Amer) Est GFR (Non-Af Amer) Random Glucose Calcium Iron TIBC % Saturation Transferrin 170.47 L Ferritin Total Bilirubin AST ALT Alkaline Phosphatase Total Protein Albumin Globulin Albumin/Globulin Ratio Vitamin B12 Folate Urine Color Urine Clarity Urine pH Ur Specific [place] Urine Protein Urine Glucose (UA) Urine Ketones Urine Blood Urine Nitrate Urine Bilirubin Urine Urobilinogen Ur Leukocyte Esterase Urine RBC (Auto) Urine Microscopic WBC Ur Squamous Epith Cells Urine Bacteria RPR Hepatitis A IgM Ab Negative Hep Bs Antigen Negative Hep B Core IgM Ab Negative Hepatitis C Antibody Negative HIV-1 Ab Rapid Screen Microbiology 04/16/17 17:00 Scrotum Gram Stain - Final 04/16/17 17:00 Scrotum Wound Culture - Final Escherichia Coli Staphylococcus Aureus 04/16/17 21:48 Blood-Venous Blood Culture - Preliminary NO GROWTH AFTER 48 HOURS 04/16/17 21:48 Urine Urine Culture - Final No Growth (<1,000 CFU/ML) Assessment and Plan (1) Left hydrocele Status: Acute (2) Fever Status: Acute - Assessment and Plan (Free Text) Assessment: A/P- 41 year old male admitted with testicular pain, edema and fever found to have large left hydrocele on imaging, no hydronephrosis on ct report. spiked temp 103 last night blood cx- neg x2 fluid cx from scrotal region- MSSA and ESBL e.coli plan- check cxr check 2 more blood cx. d/c ceftriaxone and doxy and instead start pt. on IV meropenem for ESBl e.coli wound cx. continue with IV vancomycin , keep trough <15. all above d/w patient and with .
[2017-04-19] MEDS ORDERED: Meropenem 1 GM in Sodium Chloride 0.9% 100 ML IVPB SCH (11:45)
--- NOTE | 2017-04-19 16:52 | CP.PCM.CON ---
History of Present Illness - History of Present Illness History of Present Illness: 41 year old male with no past medical history admitted with scrotal swelling for about 4 weeks time, found to be pancytopenic. The patient was found to have left sided hydrocele by ultrasound and CT scan. He reports his pain and swelling began after lifting a heavy box. He is currently undergoing antibiotic treatment and is noted to continue have fever. Review of his blood work shows pancytopenia. The patient is unaware of having blood problems in the past. Past medical history: None Past surgical history: None Family history: Denies hematologic and oncologic problems Social history: Denies tobacco, alcohol, and illicit drug use. Allergies: NKA Review of systems: All remaining review of systems including HEENT, cardiovascular, respiratory, gastrointestinal, genitourinary, musculoskeletal, dermatologic, neurologic, and psychiatric are negative unless mentioned in the HPI. Past Patient History - Tetanus Immunizations Tetanus Immunization: Unknown - Past Medical History & Family History Past Medical History?: No - Past Social History Smoking Status: Never Smoked Alcohol: None Drugs: Denies Home Situation {Lives}: With Family - CARDIAC Hx Cardiac Disorders: No - PULMONARY Hx Respiratory Disorders: No - NEUROLOGICAL Hx Neurological Disorder: No - HEENT Hx HEENT Problems: No - RENAL Hx Chronic Kidney Disease: No - ENDOCRINE/METABOLIC Hx Endocrine Disorders: No - HEMATOLOGICAL/ONCOLOGICAL Hx Blood Disorders: No - INTEGUMENTARY Hx Dermatological Problems: No - MUSCULOSKELETAL/RHEUMATOLOGICAL Hx Falls: No - GASTROINTESTINAL Hx Gastrointestinal Disorders: No Hx Vomiting: No - GENITOURINARY/GYNECOLOGICAL Hx Genitourinary Disorders: No - PSYCHIATRIC Hx Psychophysiologic Disorder: No Hx Substance Use: No - SURGICAL HISTORY Hx Surgeries: No - ANESTHESIA Hx Anesthesia: No Hx Anesthesia Reactions: No Hx Malignant Hyperthermia: No Meds Allergies/Adverse Reactions: Allergies Allergy/AdvReac Type Severity Reaction Status Date / Time No Known Allergies Allergy Verified 04/16/17 15:22 - Medications Medications: Current Medications Acetaminophen (Tylenol 325mg Tab) 650 mg PO Q4 PRN PRN Reason: Fever >100.4 F Last Admin: 04/18/17 22:44 Dose: 650 mg Famotidine (Pepcid) 20 mg PO BID [facility] Last Admin: 04/19/17 09:32 Dose: 20 mg Vancomycin HCl 1 gm/ Sodium (Chloride) 250 mls @ 166.667 mls/hr IVPB Q12 [facility] Last Admin: 04/19/17 09:32 Dose: 166.667 mls/hr Meropenem 1 gm/ Sodium (Chloride) 100 mls @ 100 mls/hr IVPB 0600,1400,2200 [facility] Physical Exam - Head Exam Head Exam: ATRAUMATIC - Eye Exam Eye Exam: Normal appearance - ENT Exam ENT Exam: Mucous Membranes Dry - Respiratory Exam Respiratory Exam: NORMAL BREATHING PATTERN - Cardiovascular Exam Cardiovascular Exam: +S1, +S2 - GI/Abdominal Exam GI & Abdominal Exam: Normal Bowel Sounds - Extremities Exam Extremities exam: Positive for: normal inspection - Neurological Exam Neurological exam: Oriented x3 - Psychiatric Exam Psychiatric exam: Normal Affect, Normal Mood - Skin Skin Exam: Warm Results - Vital Signs Recent Vital Signs: Last Vital Signs Temp 97.6 F 04/19/17 07:39 Pulse 85 04/19/17 07:39 Resp 18 04/19/17 07:39 BP 94/59 L 04/19/17 07:39 Pulse Ox 99 04/19/17 07:39 - Labs Result Diagrams: 04/18/17 06:30 04/17/17 18:30 Labs: Laboratory Results - last 24 hr 04/17/17 18:30 RPR Nonreactive Assessment & Plan (1) Pancytopenia Assessment and Plan: on antibiotics with continued fever elevated ferritin consistent with anemia of chronic disease. will plan for bone marrow biopsy for Friday if cytopenias and fevers persist to rule out occult malignancy Thank you for this interesting consult. Status: Acute
[2017-04-19] MEDS: Meropenem 1 GM in Sodium Chloride 0.9% 100 ML IVPB SCH (21:42)
[2017-04-20] MEDS: Meropenem 1 GM in Sodium Chloride 0.9% 100 ML IVPB SCH ×3 (05:59→22:20)
[2017-04-20 07:53] LABS: BASO % 0.2 % (0.0-2.0); EOS % 0.3 % (0.0-4.0); HEMOGLOBIN 8.4 g/dL (12.0-18.0); LYMPH # 0.7 K/uL (1.0-4.3); LYMPH % 23.6 % (20.0-40.0); MEAN CELL VOLUME 89.5 fl (80.0-94.0); MEAN CORPUSCULAR HEMOGLOBIN 29.9 pg (27.0-31.0); MEAN CORPUSCULAR HGB CONC 33.4 g/dL (33.0-37.0); MEAN PLATELET VOLUME 9.9 fl (7.2-11.7); MONO # 0.2 K/uL (0.0-0.8); MONO % 6.6 % (0.0-10.0); NEUT # 1.9 K/uL (1.8-7.0); NEUT % 69.3 % (50.0-75.0); NRBC % 0.1 % (0.0-0.0); RBC 2.8 Mil/uL (4.40-5.90); RED CELL DISTRIBUTION WIDTH 16.7 % (11.5-14.5); WHITE BLOOD COUNT 2.8 K/uL (4.8-10.8)
--- NOTE | 2017-04-20 07:55 | CP.PCM.PN ---
Subjective - Date & Time of Evaluation Date of Evaluation: 04/20/17 Time of Evaluation: 07:30 - Subjective Subjective: Persistent fever despite IV abx pt denies any sxs no CP no cough no SOB no abd pain persistent scrotal swelling - pt denies pain no urethral discharge Objective - Vital Signs/Intake and Output Vital Signs (last 24 hours): Temp Pulse Resp BP Pulse Ox 99.2 F 120 H 20 77/37 L 94 L 04/20/17 07:55 04/20/17 07:55 04/20/17 07:55 04/20/17 07:55 04/20/17 07:34 - Medications Medications: Current Medications Acetaminophen (Tylenol 325mg Tab) 650 mg PO Q4 PRN PRN Reason: Fever >100.4 F Last Admin: 04/20/17 05:59 Dose: 650 mg Famotidine (Pepcid) 20 mg PO BID [facility] Last Admin: 04/19/17 17:33 Dose: 20 mg Vancomycin HCl 1 gm/ Sodium (Chloride) 250 mls @ 166.667 mls/hr IVPB Q12 [facility] Last Admin: 04/19/17 21:41 Dose: 166.667 mls/hr Meropenem 1 gm/ Sodium (Chloride) 100 mls @ 100 mls/hr IVPB 0600,1400,2200 [facility] Last Admin: 04/20/17 05:59 Dose: 100 mls/hr - Labs Labs: 04/18/17 06:30 04/17/17 18:30 PT 12.3 SECONDS (9.6-11.2) H 04/17/17 06:15 INR 1.18 (0.92-1.08) H 04/17/17 06:15 APTT 31.7 SECONDS (23.3-32.5) 04/17/17 06:15 - Constitutional Appears: No Acute Distress - Head Exam Head Exam: ATRAUMATIC, NORMAL INSPECTION, NORMOCEPHALIC - Eye Exam Eye Exam: EOMI, Normal appearance, PERRL Pupil Exam: NORMAL ACCOMODATION - ENT Exam ENT Exam: Mucous Membranes Moist, Normal External Ear Exam - Neck Exam Neck Exam: Full ROM. absent: Meningismus - Respiratory Exam Respiratory Exam: NORMAL BREATHING PATTERN. absent: Respiratory Distress - Cardiovascular Exam Cardiovascular Exam: REGULAR RHYTHM, +S1, +S2 - GI/Abdominal Exam GI & Abdominal Exam: Soft, Normal Bowel Sounds. absent: Tenderness - Exam Exam: Scrotal Swelling (with dry ulcers on scrotal skin, and some desquamation). absent: Testicular Tenderness, Uretheral Discharge - Neurological Exam Neurological Exam: Alert, Awake, CN II-XII Intact, Normal Gait, Oriented x3 Neuro motor strength exam: Left Upper Extremity: 5, Right Upper Extremity: 5, Left Lower Extremity: 5, Right Lower Extremity: 5 - Psychiatric Exam Psychiatric exam: Normal Affect, Normal Mood - Skin Skin Exam: Dry, Normal Color, Warm Assessment and Plan - Assessment and Plan (Free Text) Assessment: 41 yo male with no significant PMH came in complaining of enlarged scrotum for 1 month, after lifting heavy objects and macerate scrotal skin for 4 days. Denied scrotal pain, pruritus , dysuria or penile discharge. Admitted having on and off fever. In ER found to be febrile to 102.. 1. Sepsis ( POA) sec to Scrotal Swelling with dry ulceration unclear etiology need to r/o Fourniers vs Vasculitis of scrotum vs Pyoderma gangrenosum still febrile became hypotensive this am responed to IVF hydration Lactixc acid normal, check procalcitonin ESR normal Wound cx growing ESBL E coli and MSSA Blood c/s and Urine c/s : negative Empirically started on IV rocephin , Doxycycline and Vancomycin IV- changed by Dr Rick to IV Meropenem/Vanco after c/s showed ESBL E coli HIV - non reactive RPR : neg Ct abdomen and pelvis showed no acute pathology except enlarged adrenals urology consulted - discussed case with Dr Estes - felt that there is no GIU infection - no epididymitis and swelling is from [place] Continue current management Surgery consult Ulcer may also need to be biopsied Trial of steroids ??? 2. Hyponatremia on IVF : NS 3. Pancytopenia unclear etiology, need to r/o malignancy anemia work up, showed normal Vitamin B12 ,Very elevated Ferritin levels 3040 HIV not reactive hepatitis status -negative Hematology eval - Dr Melgar- plan for BM biopsy on Friday 4. DVT prophylaxis SCD no anticoag sec to low Platelet
--- NOTE | 2017-04-20 07:55 | PCM.RRTMUL ---
WINDSHIELD TECHNICIAN Nurse Assessment - Vital Signs Blood Pressure:: 77/37 Pulse Rate:: 120 Respiratory Rate:: 20 Temperature:: 99.2 F I.Reason for WINDSHIELD TECHNICIAN - A) Acute Change in Patient: (Select all that apply): Acute change in SBP below - A) Initial Vital Signs: Blood Pressure: 77/37 Pulse Rate: 110 Respiratory Rate: 21 Temperature: 101 F O2 Sat by Pulse Oximetry: 96 - B) Neurological Status (Select all that apply): Alert, Responsive, Oriented, Verbal, Follows Commands - Constitutional Appears: Well, No Acute Distress. absent: Non-toxic - Head Head Exam: ATRAUMATIC, NORMAL INSPECTION, NORMOCEPHALIC - Eyes Eye Exam: EOMI, Normal appearance, PERRL - Respiratory Exam Respiratory Exam: NORMAL BREATHING PATTERN. absent: Rales, Wheezes, Respiratory Distress - Cardiovascular Exam Cardiovascular Exam: Tachycardia, REGULAR RHYTHM, +S1, +S2 - GI/Abdominal Exam GI & Abdominal Exam: Soft, Normal Bowel Sounds. absent: Tenderness Additional comments: Scrotal swelling, nontender, noted dry ulcers and desquamation - Neurological Exam Neurological Exam: Awake, CN II-XII Intact, Normal Gait, Oriented x3 - Extremities Exam Extremities Exam: Full ROM, Normal Capillary Refill, Normal Inspection. absent : Pedal Edema Plan - A. End of WINDSHIELD TECHNICIAN Vital Signs: Blood Pressure: 92/50 Pulse Rate: 102 Respiratory Rate: 18 Temperature: 99.8 F O2 Sat by Pulse Oximetry: 98 - B. Assessment of Findings&Treatment Plan Hypotension prob sec to Hypovolemia and Fever r/o Sepsis - IVF bolus 1 liter then IVF NS at 100 ml /hr CBC, CMP, Lactic acid, Trop, coags, Fibrinogen, Blood c/s BP improved with IVF bolus Transfer pt to Telemetry for close monitoring cont IV meropenem and Vanco
[2017-04-20 08:12] LABS: BLOOD UREA NITROGEN 10 mg/dl (9-20); CALCIUM 7.3 mg/dL (8.4-10.2); GFR AFRICAN-AMERICAN > 60; GFR NON-AFRICAN AMERICAN > 60
[2017-04-20 08:29] LABS: INR 1.21 (0.92-1.08); PARTIAL THROMBOPLASTIN TIME 33.7 SECONDS (23.3-32.5); PROTHROMBIN TIME 12.6 SECONDS (9.6-11.2)
[2017-04-20] MEDS ORDERED: Potassium Chloride 20 mEq ER Tab PO ONE (09:30)
--- NOTE | 2017-04-20 14:06 | RAD ---
HISTORY: fever r/o PNA COMPARISON: No prior. TECHNIQUE: AP and lateral erect view sitting in a wheelchair performed. FINDINGS: LUNGS: No active pulmonary disease. There appears to be some minor thickening of the minor fissure. . PLEURA: No significant pleural effusion identified. No pneumothorax apparent. CARDIOVASCULAR: Normal. OSSEOUS STRUCTURES: No significant abnormalities. VISUALIZED UPPER ABDOMEN: Normal. OTHER FINDINGS: None. IMPRESSION: No focal consolidation. Suspect minor thickening right minor fissure
--- NOTE | 2017-04-20 14:41 | CP.PCM.PN ---
Subjective - Date & Time of Evaluation Date of Evaluation: 04/20/17 Time of Evaluation: 14:41 - Subjective Subjective: ID Note- Pt. seen and examined today. per hospitalist earlier this am pt. became hypotensive and spiked temp again and was transferred to tele unit for closer monitoring. Currently pt. denies any fever but he has chills, He denies any dysurea, denies any n/v, denies any abd. pain, conrad any cough, denies any sob and denies any chest pain and denies any diarrhea. Objective - Vital Signs/Intake and Output Vital Signs (last 24 hours): Temp Pulse Resp BP Pulse Ox 98.9 F 104 H 20 95/61 L 96 04/20/17 12:37 04/20/17 12:37 04/20/17 12:37 04/20/17 12:37 04/20/17 12:37 - Medications Medications: Current Medications Acetaminophen (Tylenol 325mg Tab) 650 mg PO Q4 PRN PRN Reason: Fever >100.4 F Last Admin: 04/20/17 05:59 Dose: 650 mg Famotidine (Pepcid) 20 mg PO BID [facility] Last Admin: 04/20/17 10:02 Dose: 20 mg Vancomycin HCl 1 gm/ Sodium (Chloride) 250 mls @ 166.667 mls/hr IVPB Q12 [facility] Last Admin: 04/20/17 10:03 Dose: 166.667 mls/hr Meropenem 1 gm/ Sodium (Chloride) 100 mls @ 100 mls/hr IVPB 0600,1400,2200 [facility] Last Admin: 04/20/17 05:59 Dose: 100 mls/hr - Labs Labs: - Additional Findings Additional findings: - Constitutional Appears: No Acute Distress - Head Exam Head Exam: ATRAUMATIC - Eye Exam Eye Exam: PERRL - ENT Exam ENT Exam: Normal Oropharynx - Respiratory Exam Respiratory Exam: Clear to Auscultation Bilateral, NORMAL BREATHING PATTERN - Cardiovascular Exam Cardiovascular Exam: RRR, +S1, +S2 - GI/Abdominal Exam GI & Abdominal Exam: Normal Bowel Sounds, Soft Additional comments: NT, ND - Exam Additional comments: scrotal swelling and edema with areas of denuded sloughed off skin and one larger flat lesion with white edges, slightly erythematous no discharge today no open wounds - Extremities Exam Extremities exam: Positive for: normal inspection Neuro - AAO x 3 Laboratory Results - last 72 hr 04/17/17 04/17/17 04/17/17 09:53 18:30 18:30 WBC RBC Hgb Hct MCV MCH MCHC RDW Plt Count MPV Neut % (Auto) Lymph % (Auto) Carlton % (Auto) Eos % (Auto) Baso % (Auto) Neut # Lymph # Carlton # Eos # Baso # Retic Count PT INR APTT Fibrinogen Sodium Potassium Chloride Carbon Dioxide Anion Gap BUN Creatinine Est GFR ( Amer) Est GFR (Non-Af Amer) Random Glucose Lactic Acid Calcium Iron TIBC % Saturation Transferrin Ferritin Total Bilirubin AST ALT Alkaline Phosphatase Total Protein Albumin Globulin Albumin/Globulin Ratio Vitamin B12 Folate Urine Color Yellow Urine Clarity Clear Urine pH 7.0 Ur Specific [place] 1.005 Urine Protein Negative Urine Glucose (UA) 150 Urine Ketones Negative Urine Blood Moderate Urine Nitrate Negative Urine Bilirubin Negative Urine Urobilinogen 2.0 Ur Leukocyte Esterase Neg Urine RBC (Auto) 2 Urine Microscopic WBC < 1 Ur Squamous Epith Cells < 1 RPR Nonreactive Hepatitis A IgM Ab Hep Bs Antigen Hep B Core IgM Ab Hepatitis C Antibody HIV-1 Ab Rapid Screen Non reactive Blood Type Antibody Screen BBK History Checked 04/17/17 04/17/17 04/17/17 18:30 18:30 18:30 WBC RBC Hgb Hct MCV MCH MCHC RDW Plt Count MPV Neut % (Auto) Lymph % (Auto) Carlton % (Auto) Eos % (Auto) Baso % (Auto) Neut # Lymph # Carlton # Eos # Baso # Retic Count 2.6 H PT INR APTT Fibrinogen Sodium 130 L Potassium 3.8 Chloride 101 Carbon Dioxide 23 Anion Gap 10 BUN 11 Creatinine 0.7 L Est GFR ( Amer) > 60 Est GFR (Non-Af Amer) > 60 Random Glucose 203 H Lactic Acid Calcium 7.8 L Iron 57 TIBC 243 L % Saturation 23 Transferrin Ferritin 3040.0 Total Bilirubin 1.3 AST 75 H ALT 72 Alkaline Phosphatase 111 Total Protein 5.6 L Albumin 2.5 L Globulin 3.0 Albumin/Globulin Ratio 0.8 L Vitamin B12 > 1000 H Folate 8.9 Urine Color Urine Clarity Urine pH Ur Specific [place] Urine Protein Urine Glucose (UA) Urine Ketones Urine Blood Urine Nitrate Urine Bilirubin Urine Urobilinogen Ur Leukocyte Esterase Urine RBC (Auto) Urine Microscopic WBC Ur Squamous Epith Cells RPR Hepatitis A IgM Ab Hep Bs Antigen Hep B Core IgM Ab Hepatitis C Antibody HIV-1 Ab Rapid Screen Blood Type Antibody Screen BBK History Checked 04/17/17 04/17/17 04/18/17 18:30 20:00 06:30 WBC 3.1 L RBC 3.19 L Hgb 9.5 L Hct 29.2 L MCV 91.6 MCH 29.8 MCHC 32.5 L RDW 16.7 H Plt Count 78 L MPV 9.1 Neut % (Auto) 66.5 Lymph % (Auto) 25.7 Carlton % (Auto) 6.4 Eos % (Auto) 0.4 Baso % (Auto) 1.0 Neut # 2.1 Lymph # 0.8 L Carlton # 0.2 Eos # 0.0 Baso # 0.0 Retic Count PT INR APTT Fibrinogen Sodium Potassium Chloride Carbon Dioxide Anion Gap BUN Creatinine Est GFR ( Amer) Est GFR (Non-Af Amer) Random Glucose Lactic Acid Calcium Iron TIBC % Saturation Transferrin 170.47 L Ferritin Total Bilirubin AST ALT Alkaline Phosphatase Total Protein Albumin Globulin Albumin/Globulin Ratio Vitamin B12 Folate Urine Color Urine Clarity Urine pH Ur Specific [place] Urine Protein Urine Glucose (UA) Urine Ketones Urine Blood Urine Nitrate Urine Bilirubin Urine Urobilinogen Ur Leukocyte Esterase Urine RBC (Auto) Urine Microscopic WBC Ur Squamous Epith Cells RPR Hepatitis A IgM Ab Negative Hep Bs Antigen Negative Hep B Core IgM Ab Negative Hepatitis C Antibody Negative HIV-1 Ab Rapid Screen Blood Type Antibody Screen BBK History Checked 04/20/17 04/20/17 04/20/17 05:30 05:30 05:30 WBC 2.8 L RBC 2.80 L Hgb 8.4 L Hct 25.1 L MCV 89.5 D MCH 29.9 MCHC 33.4 RDW 16.7 H Plt Count 60 L MPV 9.9 Neut % (Auto) 69.3 Lymph % (Auto) 23.6 Carlton % (Auto) 6.6 Eos % (Auto) 0.3 Baso % (Auto) 0.2 Neut # 1.9 Lymph # 0.7 L Carlton # 0.2 Eos # 0.0 Baso # 0.0 Retic Count PT INR APTT Fibrinogen Sodium 128 L Potassium 3.3 L Chloride 101 Carbon Dioxide 21 L Anion Gap 9 L BUN 10 Creatinine 0.6 L Est GFR ( Amer) > 60 Est GFR (Non-Af Amer) > 60 Random Glucose 125 H Lactic Acid 1.2 Calcium 7.3 L Iron TIBC % Saturation Transferrin Ferritin Total Bilirubin AST ALT Alkaline Phosphatase Total Protein Albumin Globulin Albumin/Globulin Ratio Vitamin B12 Folate Urine Color Urine Clarity Urine pH Ur Specific [place] Urine Protein Urine Glucose (UA) Urine Ketones Urine Blood Urine Nitrate Urine Bilirubin Urine Urobilinogen Ur Leukocyte Esterase Urine RBC (Auto) Urine Microscopic WBC Ur Squamous Epith Cells RPR Hepatitis A IgM Ab Hep Bs Antigen Hep B Core IgM Ab Hepatitis C Antibody HIV-1 Ab Rapid Screen Blood Type Antibody Screen BBK History Checked 04/20/17 04/20/17 05:30 07:30 WBC RBC Hgb Hct MCV MCH MCHC RDW Plt Count MPV Neut % (Auto) Lymph % (Auto) Carlton % (Auto) Eos % (Auto) Baso % (Auto) Neut # Lymph # Carlton # Eos # Baso # Retic Count PT 12.6 H INR 1.21 H APTT 33.7 H Fibrinogen 207 Sodium Potassium Chloride Carbon Dioxide Anion Gap BUN Creatinine Est GFR ( Amer) Est GFR (Non-Af Amer) Random Glucose Lactic Acid Calcium Iron TIBC % Saturation Transferrin Ferritin Total Bilirubin AST ALT Alkaline Phosphatase Total Protein Albumin Globulin Albumin/Globulin Ratio Vitamin B12 Folate Urine Color Urine Clarity Urine pH Ur Specific [place] Urine Protein Urine Glucose (UA) Urine Ketones Urine Blood Urine Nitrate Urine Bilirubin Urine Urobilinogen Ur Leukocyte Esterase Urine RBC (Auto) Urine Microscopic WBC Ur Squamous Epith Cells RPR Hepatitis A IgM Ab Hep Bs Antigen Hep B Core IgM Ab Hepatitis C Antibody HIV-1 Ab Rapid Screen Blood Type O POSITIVE Antibody Screen Negative BBK History Checked No verified bt Microbiology 04/18/17 10:09 Urethra GC Culture - Final NO GC ISOLATED 04/16/17 21:48 Blood-Venous Blood Culture - Preliminary NO GROWTH AFTER 3 DAYS 04/18/17 18:30 Blood-Venous Blood Culture - Preliminary NO GROWTH AFTER 24 HOURS 04/18/17 19:00 Blood-Venous Blood Culture - Preliminary NO GROWTH AFTER 24 HOURS 04/16/17 17:00 Scrotum Gram Stain - Final 04/16/17 17:00 Scrotum Wound Culture - Final Escherichia Coli Staphylococcus Aureus 04/16/17 21:48 Urine Urine Culture - Final No Growth (<1,000 CFU/ML) Accession No. : [id number] Patient Name / ID : TONG DOMÍNGUEZ / [id number] Exam Date : 04/19/2017 20:47:19 ( Approved ) Study Comment : Sex / Age : M / 41Y Creator : Facundo Soto MD Dictator : Facundo Soto MD Memorial Marker Designer : Authors Motivational : Facundo Soto MD Approver2 : Report Date : 04/20/2017 14:00:52 My Comment : HISTORY: fever r/o PNA COMPARISON: No prior. TECHNIQUE: AP and lateral erect view sitting in a wheelchair performed. FINDINGS: LUNGS: No active pulmonary disease. There appears to be some minor thickening of the minor fissure. . PLEURA: No significant pleural effusion identified. No pneumothorax apparent. CARDIOVASCULAR: Normal. OSSEOUS STRUCTURES: No significant abnormalities. VISUALIZED UPPER ABDOMEN: Normal. OTHER FINDINGS: None. IMPRESSION: No focal consolidation. Suspect minor thickening right minor fissure Assessment and Plan (1) Left hydrocele Status: Acute (2) Fever Status: Acute (3) Scrotal edema Status: Acute - Assessment and Plan (Free Text) Assessment: A/P- 41 year old male admitted with testicular pain, edema and fever found to have large left hydrocele on imaging, no hydronephrosis on ct report. spiked temp 101 last night hypotensive is now on tele unit blood cx- neg x 3 urine cx- negative urethral cx- neg for GC fluid cx from scrotal region- MSSA and ESBL e.coli CXR- negative as per report plan- in light of the scrotal lesions and pancytopenia and continued fever despite broad spectrum IV antibiotics malignancy should be ruled out. would most likely need Bx of the scrotal lesion and/or possible BM bx. check 2 more blood cx. continue with IV meropenem for ESBl e.coli wound cx. ay #3. continue with IV vancomycin for the MSSA wound cx. keep trough <15. day #3 also would advise to rule out scrotal vasculitis or stricture in light of hypotention and persistent once a day fever spikes. Also in light of the drop in Hct would advise repeat scrotal US or CT pelvis to r/o hematoma. All above d/w patient and with the hospitalist at length.
[2017-04-20] MEDS: Sodium Chloride 0.9% 1,000 ML IV SCH (20:25)
--- NOTE | 2017-04-20 22:50 | CP.PCM.PN ---
Subjective - Date & Time of Evaluation Date of Evaluation: 04/20/17 Time of Evaluation: 15:00 - Subjective Subjective: No complaints. Objective - Vital Signs/Intake and Output Vital Signs (last 24 hours): Temp Pulse Resp BP Pulse Ox 98.9 F 115 H 20 88/46 L 97 04/20/17 19:23 04/20/17 19:23 04/20/17 19:23 04/20/17 19:23 04/20/17 19:23 Intake and Output: 04/20/17 04/21/17 18:59 06:59 Intake Total 1150 Output Total 1200 Balance -50 - Medications Medications: Current Medications Acetaminophen (Tylenol 325mg Tab) 650 mg PO Q4 PRN PRN Reason: Fever >100.4 F Last Admin: 04/20/17 16:24 Dose: 650 mg Famotidine (Pepcid) 20 mg PO BID [facility] Last Admin: 04/20/17 16:20 Dose: 20 mg Vancomycin HCl 1 gm/ Sodium (Chloride) 250 mls @ 166.667 mls/hr IVPB Q12 [facility] Last Admin: 04/20/17 10:03 Dose: 166.667 mls/hr Meropenem 1 gm/ Sodium (Chloride) 100 mls @ 100 mls/hr IVPB 0600,1400,2200 [facility] Last Admin: 04/20/17 16:20 Dose: 100 mls/hr Sodium Chloride (Sodium Chloride 0.9%) 1,000 mls @ 100 mls/hr IV .Q10H [facility] Stop: 04/21/17 19:22 - Labs Labs: 04/20/17 05:30 04/20/17 05:30 PT 12.6 SECONDS (9.6-11.2) H 04/20/17 05:30 INR 1.21 (0.92-1.08) H 04/20/17 05:30 APTT 33.7 SECONDS (23.3-32.5) H 04/20/17 05:30 - Head Exam Head Exam: ATRAUMATIC - Eye Exam Eye Exam: Normal appearance - ENT Exam ENT Exam: Mucous Membranes Dry - Respiratory Exam Respiratory Exam: NORMAL BREATHING PATTERN - Cardiovascular Exam Cardiovascular Exam: +S1, +S2 - GI/Abdominal Exam GI & Abdominal Exam: Normal Bowel Sounds - Extremities Exam Extremities Exam: Normal Inspection Assessment and Plan (1) Pancytopenia Assessment & Plan: for bone marrow biopsy Friday AM; rule out occult malignancy Status: Acute
--- NOTE | 2017-04-21 01:25 | CP.PCM.CON ---
<Rick Finn D - Last Filed: 04/21/17 01:32> History of Present Illness - History of Present Illness History of Present Illness: SURGERY CONSULT NOTE FOR DR. MOON 41M presents to [facility] with scrotal swelling and ulcer. Patient states both symptoms started 4 weeks ago when he was lifting heavy objects at work. He states the ulcers have progressively gotten worse. He does not have an idea as to how it may have been caused. Patient denies being sexually active, denies dysuria, denies penile discharges. He does states that he feels the groin region is really hot. He also admits to fevers. Patient denies chest pain, shortness of breath, and abdominal pain. Surgery consulted for scrotal skin biopsy. PMH: denies PSH: denies Social: denies tobacco, alcohol, and illicit drugs Allergies: NKDA Past Patient History - Tetanus Immunizations Tetanus Immunization: Unknown - Past Medical History & Family History Past Medical History?: No - Past Social History Smoking Status: Never Smoked Alcohol: None Drugs: Denies Home Situation {Lives}: With Family - CARDIAC Hx Cardiac Disorders: No - PULMONARY Hx Respiratory Disorders: No - NEUROLOGICAL Hx Neurological Disorder: No - HEENT Hx HEENT Problems: No - RENAL Hx Chronic Kidney Disease: No - ENDOCRINE/METABOLIC Hx Endocrine Disorders: No - HEMATOLOGICAL/ONCOLOGICAL Hx Blood Disorders: No - INTEGUMENTARY Hx Dermatological Problems: No - MUSCULOSKELETAL/RHEUMATOLOGICAL Hx Falls: No - GASTROINTESTINAL Hx Gastrointestinal Disorders: No Hx Vomiting: No - GENITOURINARY/GYNECOLOGICAL Hx Genitourinary Disorders: No - PSYCHIATRIC Hx Psychophysiologic Disorder: No Hx Substance Use: No - SURGICAL HISTORY Hx Surgeries: No - ANESTHESIA Hx Anesthesia: No Hx Anesthesia Reactions: No Hx Malignant Hyperthermia: No Meds Allergies/Adverse Reactions: Allergies Allergy/AdvReac Type Severity Reaction Status Date / Time No Known Allergies Allergy Verified 04/16/17 15:22 - Medications Medications: Current Medications Acetaminophen (Tylenol 325mg Tab) 650 mg PO Q4 PRN PRN Reason: Fever >100.4 F Last Admin: 04/21/17 00:38 Dose: 650 mg Famotidine (Pepcid) 20 mg PO BID [facility] Last Admin: 04/20/17 16:20 Dose: 20 mg Vancomycin HCl 1 gm/ Sodium (Chloride) 250 mls @ 166.667 mls/hr IVPB Q12 [facility] Last Admin: 04/20/17 20:15 Dose: 166.667 mls/hr Meropenem 1 gm/ Sodium (Chloride) 100 mls @ 100 mls/hr IVPB 0600,1400,2200 [facility] Last Admin: 04/20/17 22:20 Dose: 100 mls/hr Sodium Chloride (Sodium Chloride 0.9%) 1,000 mls @ 100 mls/hr IV .Q10H [facility] Stop: 04/21/17 19:22 Last Admin: 04/20/17 20:25 Dose: 100 mls/hr Physical Exam - Constitutional Appears: Non-toxic, No Acute Distress - Head Exam Head Exam: ATRAUMATIC - Eye Exam Eye Exam: EOMI, PERRL - ENT Exam ENT Exam: Mucous Membranes Moist - Respiratory Exam Respiratory Exam: Clear to Auscultation Bilateral, NORMAL BREATHING PATTERN - Cardiovascular Exam Cardiovascular Exam: REGULAR RHYTHM, +S1, +S2 - GI/Abdominal Exam GI & Abdominal Exam: Soft. absent: Distended, Firm, Guarding, Rebound, Rigid, Tenderness - Exam Exam: Scrotal Swelling. absent: Uretheral Discharge Additional comments: ulcers on the scrotum (dry and wet), non tender to palpation. - Extremities Exam Extremities exam: Negative for: pedal edema, tenderness - Neurological Exam Neurological exam: Alert, Oriented x3 - Psychiatric Exam Psychiatric exam: Normal Affect, Normal Mood - Skin Skin Exam: Dry, Intact, Normal Color, Warm Results - Vital Signs Recent Vital Signs: Last Vital Signs Temp 102.9 F H 04/21/17 01:11 Pulse 141 H 04/21/17 01:11 Resp 20 04/21/17 01:11 BP 88/46 L 04/20/17 19:23 Pulse Ox 94 L 04/21/17 01:11 - Labs Result Diagrams: 04/20/17 05:30 04/20/17 05:30 Labs: Laboratory Results - last 24 hr 04/20/17 04/20/17 04/20/17 05:30 05:30 05:30 WBC 2.8 L RBC 2.80 L Hgb 8.4 L Hct 25.1 L MCV 89.5 D MCH 29.9 MCHC 33.4 RDW 16.7 H Plt Count 60 L MPV 9.9 Neut % (Auto) 69.3 Lymph % (Auto) 23.6 [place] % (Auto) 6.6 Eos % (Auto) 0.3 Baso % (Auto) 0.2 Neut # 1.9 Lymph # 0.7 L [place] # 0.2 Eos # 0.0 Baso # 0.0 PT INR APTT Fibrinogen Sodium 128 L Potassium 3.3 L Chloride 101 Carbon Dioxide 21 L Anion Gap 9 L BUN 10 Creatinine 0.6 L Est GFR ( Amer) > 60 Est GFR (Non-Af Amer) > 60 Random Glucose 125 H Lactic Acid 1.2 Calcium 7.3 L Cortisol AM Sample Blood Type Blood Type Confirm Antibody Screen BBK History Checked 04/20/17 04/20/17 04/20/17 05:30 07:30 08:00 WBC RBC Hgb Hct MCV MCH MCHC RDW Plt Count MPV Neut % (Auto) Lymph % (Auto) [place] % (Auto) Eos % (Auto) Baso % (Auto) Neut # Lymph # [place] # Eos # Baso # PT 12.6 H INR 1.21 H APTT 33.7 H Fibrinogen 207 Sodium Potassium Chloride Carbon Dioxide Anion Gap BUN Creatinine Est GFR ( Amer) Est GFR (Non-Af Amer) Random Glucose Lactic Acid Calcium Cortisol AM Sample 8.6 Blood Type O POSITIVE Blood Type Confirm Antibody Screen Negative BBK History Checked No verified bt 04/20/17 17:30 WBC RBC Hgb Hct MCV MCH MCHC RDW Plt Count MPV Neut % (Auto) Lymph % (Auto) [place] % (Auto) Eos % (Auto) Baso % (Auto) Neut # Lymph # [place] # Eos # Baso # PT INR APTT Fibrinogen Sodium Potassium Chloride Carbon Dioxide Anion Gap BUN Creatinine Est GFR ( Amer) Est GFR (Non-Af Amer) Random Glucose Lactic Acid Calcium Cortisol AM Sample Blood Type Blood Type Confirm O POSITIVE Antibody Screen BBK History Checked Assessment & Plan - Assessment and Plan (Free Text) Assessment: 41M presents with scrotal swelling and scrotal ulcers Plan: - NPO - Pain control - re-evaluate patient in the AM for OR for biopsy Further recs discuss with Dr. Red Finn, PGY1 <Festus Moon - Last Filed: 04/21/17 19:33> Meds - Medications Medications: Current Medications Acetaminophen (Tylenol 325mg Tab) 650 mg PO Q4 PRN PRN Reason: Fever >100.4 F Last Admin: 04/21/17 08:33 Dose: 650 mg Famotidine (Pepcid) 20 mg PO BID [facility] Last Admin: 04/21/17 08:34 Dose: 20 mg Vancomycin HCl 1 gm/ Sodium (Chloride) 250 mls @ 166.667 mls/hr IVPB Q12 [facility] Last Admin: 04/21/17 08:33 Dose: 166.667 mls/hr Meropenem 1 gm/ Sodium (Chloride) 100 mls @ 100 mls/hr IVPB 0600,1400,2200 [facility] Last Admin: 04/21/17 16:07 Dose: 100 mls/hr Sodium Chloride (Sodium Chloride 0.9%) 1,000 mls @ 100 mls/hr IV .Q10H [facility] Stop: 04/22/17 23:59 Last Admin: 04/21/17 16:08 Dose: 100 mls/hr Results - Vital Signs Recent Vital Signs: Last Vital Signs Temp 97.8 F 04/21/17 16:37 Pulse 97 H 04/21/17 16:37 Resp 16 04/21/17 16:37 BP 89/52 L 04/21/17 16:37 Pulse Ox 98 04/21/17 16:37 - Labs Result Diagrams: 04/21/17 06:45 04/21/17 06:45 Labs: Laboratory Results - last 24 hr 04/20/17 04/20/17 04/21/17 05:30 08:00 06:45 WBC 3.5 L RBC 3.02 L Hgb 9.1 L Hct 27.5 L MCV 91.1 MCH 30.1 MCHC 33.0 RDW 16.6 H Plt Count 65 L MPV 9.8 Neut % (Auto) 67.7 Lymph % (Auto) 25.0 [place] % (Auto) 6.8 Eos % (Auto) 0.1 Baso % (Auto) 0.4 Neut # 2.4 Lymph # 0.9 L [place] # 0.2 Eos # 0.0 Baso # 0.0 Sodium Potassium Chloride Carbon Dioxide Anion Gap BUN Creatinine Est GFR ( Amer) Est GFR (Non-Af Amer) Random Glucose Calcium Total Bilirubin AST ALT Alkaline Phosphatase Total Protein Albumin Globulin Albumin/Globulin Ratio Procalcitonin 0.84 H Cortisol AM Sample 8.6 04/21/17 04/21/17 06:45 06:45 WBC RBC Hgb Hct MCV MCH MCHC RDW Plt Count MPV Neut % (Auto) Lymph % (Auto) [place] % (Auto) Eos % (Auto) Baso % (Auto) Neut # Lymph # [place] # Eos # Baso # Sodium 130 L Potassium 4.3 Chloride 102 Carbon Dioxide 24 Anion Gap 8 L BUN 10 Creatinine 0.6 L Est GFR ( Amer) > 60 Est GFR (Non-Af Amer) > 60 Random Glucose 142 H Calcium 7.5 L Total Bilirubin 1.3 AST 76 H ALT 65 Alkaline Phosphatase 155 H D Total Protein 5.2 L Albumin 2.2 L Globulin 2.9 Albumin/Globulin Ratio 0.8 L Procalcitonin 0.84 H Cortisol AM Sample Attending/Attestation - Attestation I have personally seen and examined this patient.: Yes I have fully participated in the care of the patient.: Yes I have reviewed all pertinent clinical information: Yes Notes (Text): 04/21/17 19:31 Pt was seen and examined at bedside on 04/21/17 Agree with above note and assessment 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
[2017-04-21] MEDS: Meropenem 1 GM in Sodium Chloride 0.9% 100 ML IVPB SCH ×3 (06:02→21:55)
[2017-04-21] MEDS: Sodium Chloride 0.9% 1,000 ML IV SCH ×2 (06:07→16:08)
[2017-04-21 07:04] LABS: BASO % 0.4 % (0.0-2.0); EOS % 0.1 % (0.0-4.0); HEMOGLOBIN 9.1 g/dL (12.0-18.0); LYMPH # 0.9 K/uL (1.0-4.3); MEAN CELL VOLUME 91.1 fl (80.0-94.0); MEAN CORPUSCULAR HEMOGLOBIN 30.1 pg (27.0-31.0); MEAN PLATELET VOLUME 9.8 fl (7.2-11.7); MONO # 0.2 K/uL (0.0-0.8); MONO % 6.8 % (0.0-10.0); NEUT # 2.4 K/uL (1.8-7.0); NEUT % 67.7 % (50.0-75.0); RBC 3.02 Mil/uL (4.40-5.90); RED CELL DISTRIBUTION WIDTH 16.6 % (11.5-14.5); WHITE BLOOD COUNT 3.5 K/uL (4.8-10.8)
[2017-04-21 07:21] LABS: ALBUMIN 2.2 g/dL (3.5-5.0); ALT/SGPT 65 U/L (21-72); AST/SGOT 76 U/L (17-59); BLOOD UREA NITROGEN 10 mg/dl (9-20); CALCIUM 7.5 mg/dL (8.4-10.2); GFR AFRICAN-AMERICAN > 60; GFR NON-AFRICAN AMERICAN > 60
[2017-04-21 07:28] LABS: ALB/GLOB RATIO 0.8 (1.0-2.1)
--- NOTE | 2017-04-21 10:25 | CP.PCM.PN ---
Subjective - Date & Time of Evaluation Date of Evaluation: 04/21/17 Time of Evaluation: 09:00 - Subjective Subjective: still febrile denies testicular pain no cough no SOB no CP no abd pain Objective - Vital Signs/Intake and Output Vital Signs (last 24 hours): Temp Pulse Resp BP Pulse Ox 101.4 F H 120 H 18 93/53 L 96 04/21/17 10:11 04/21/17 08:12 04/21/17 08:12 04/21/17 08:12 04/21/17 08:12 Intake and Output: 04/21/17 04/21/17 06:59 18:59 Intake Total 1150 Output Total 1200 Balance -50 - Medications Medications: Current Medications Acetaminophen (Tylenol 325mg Tab) 650 mg PO Q4 PRN PRN Reason: Fever >100.4 F Last Admin: 04/21/17 08:33 Dose: 650 mg Famotidine (Pepcid) 20 mg PO BID [facility] Last Admin: 04/21/17 08:34 Dose: 20 mg Vancomycin HCl 1 gm/ Sodium (Chloride) 250 mls @ 166.667 mls/hr IVPB Q12 [facility] Last Admin: 04/21/17 08:33 Dose: 166.667 mls/hr Meropenem 1 gm/ Sodium (Chloride) 100 mls @ 100 mls/hr IVPB 0600,1400,2200 [facility] Last Admin: 04/21/17 06:02 Dose: 100 mls/hr Sodium Chloride (Sodium Chloride 0.9%) 1,000 mls @ 100 mls/hr IV .Q10H [facility] Stop: 04/21/17 19:22 Last Admin: 04/21/17 06:07 Dose: 100 mls/hr - Labs Labs: 04/21/17 06:45 04/21/17 06:45 PT 12.6 SECONDS (9.6-11.2) H 04/20/17 05:30 INR 1.21 (0.92-1.08) H 04/20/17 05:30 APTT 33.7 SECONDS (23.3-32.5) H 04/20/17 05:30 - Constitutional Appears: No Acute Distress - Head Exam Head Exam: ATRAUMATIC, NORMAL INSPECTION, NORMOCEPHALIC - Eye Exam Eye Exam: EOMI, Normal appearance, PERRL Pupil Exam: NORMAL ACCOMODATION - ENT Exam ENT Exam: Mucous Membranes Moist, Normal External Ear Exam - Neck Exam Neck Exam: Full ROM. absent: Meningismus - Respiratory Exam Respiratory Exam: NORMAL BREATHING PATTERN. absent: Respiratory Distress - Cardiovascular Exam Cardiovascular Exam: REGULAR RHYTHM, +S1, +S2 - GI/Abdominal Exam GI & Abdominal Exam: Soft, Normal Bowel Sounds. absent: Tenderness - Exam Exam: Scrotal Swelling (with dry ulcers on scrotal skin, and some denuded and desquamating areas). absent: Testicular Tenderness, Uretheral Discharge - Neurological Exam Neurological Exam: Alert, Awake, CN II-XII Intact, Normal Gait, Oriented x3 Neuro motor strength exam: Left Upper Extremity: 5, Right Upper Extremity: 5, Left Lower Extremity: 5, Right Lower Extremity: 5 - Psychiatric Exam Psychiatric exam: Normal Affect, Normal Mood - Skin Skin Exam: Dry, Normal Color, Warm Assessment and Plan - Assessment and Plan (Free Text) Assessment: 41 yo male with no significant PMH came in complaining of enlarged scrotum for 1 month, after lifting heavy objects and macerate scrotal skin for 4 days. Denied scrotal pain, pruritus , dysuria or penile discharge. Admitted having on and off fever. In ER found to be febrile to 102.. 1. Sepsis ( POA) sec to Scrotal Swelling with dry ulceration unclear etiology still febrile Lactic acid normal, sl elevated procalcitonin ESR normal Wound cx growing ESBL E coli and MSSA Blood c/s and Urine c/s : negative Empirically started on IV rocephin , Doxycycline and Vancomycin IV- changed by Dr Rick to IV Meropenem/Vanco after c/s showed ESBL E coli HIV - non reactive RPR : neg Ct abdomen and pelvis showed no acute pathology except enlarged adrenals urology consulted - discussed case with Dr Estes - Plan for Biopsy , scrotal exploration tomorrow Continue current management Surgery consulted- discussed case with Dr Marley NPO from [place] 2. Hyponatremia on IVF : NS 3. Pancytopenia unclear etiology, need to r/o malignancy anemia work up, showed normal Vitamin B12 ,Very elevated Ferritin levels 3040 HIV not reactive hepatitis status -negative Hematology eval - Dr Melgar- plan for BM biopsy on Friday Will transfuse platelet prior to the surgery in am 4. DVT prophylaxis SCD no anticoag sec to low Platelet
--- NOTE | 2017-04-21 13:03 | CP.PCM.PN ---
Subjective - Date & Time of Evaluation Date of Evaluation: 04/21/17 Time of Evaluation: 12:53 - Subjective Subjective: asked to see pt again skin rash worse scrotun is non tender prior us is negative for abcess no signs of gangrene.Discusse with pt and dr diaz will procede with skin biopsy and scrotal exploration tomorrow p please keep pt npo after breakfast. [place] Objective - Vital Signs/Intake and Output Vital Signs (last 24 hours): Temp Pulse Resp BP Pulse Ox 97.8 F 102 H 18 88/50 L 97 04/21/17 12:42 04/21/17 12:42 04/21/17 12:42 04/21/17 12:42 04/21/17 12:42 Intake and Output: 04/21/17 04/21/17 06:59 18:59 Intake Total 1150 Output Total 1200 Balance -50 - Medications Medications: Current Medications Acetaminophen (Tylenol 325mg Tab) 650 mg PO Q4 PRN PRN Reason: Fever >100.4 F Last Admin: 04/21/17 08:33 Dose: 650 mg Famotidine (Pepcid) 20 mg PO BID [facility] Last Admin: 04/21/17 08:34 Dose: 20 mg Vancomycin HCl 1 gm/ Sodium (Chloride) 250 mls @ 166.667 mls/hr IVPB Q12 [facility] Last Admin: 04/21/17 08:33 Dose: 166.667 mls/hr Meropenem 1 gm/ Sodium (Chloride) 100 mls @ 100 mls/hr IVPB 0600,1400,2200 [facility] Last Admin: 04/21/17 06:02 Dose: 100 mls/hr Sodium Chloride (Sodium Chloride 0.9%) 1,000 mls @ 100 mls/hr IV .Q10H [facility] Stop: 04/21/17 19:22 Last Admin: 04/21/17 06:07 Dose: 100 mls/hr - Labs Labs: 04/21/17 06:45 04/21/17 06:45 PT 12.6 SECONDS (9.6-11.2) H 04/20/17 05:30 INR 1.21 (0.92-1.08) H 04/20/17 05:30 APTT 33.7 SECONDS (23.3-32.5) H 04/20/17 05:30
--- NOTE | 2017-04-21 20:44 | CP.PCM.PN ---
Subjective - Date & Time of Evaluation Date of Evaluation: 04/21/17 Time of Evaluation: 17:30 - Subjective Subjective: No complaints. Objective - Vital Signs/Intake and Output Vital Signs (last 24 hours): Temp Pulse Resp BP Pulse Ox 98.9 F 102 H 16 95/61 L 97 04/21/17 20:13 04/21/17 20:13 04/21/17 20:13 04/21/17 20:13 04/21/17 20:13 Intake and Output: 04/21/17 04/22/17 18:59 06:59 Intake Total 1300 Output Total 800 Balance 500 - Medications Medications: Current Medications Acetaminophen (Tylenol 325mg Tab) 650 mg PO Q4 PRN PRN Reason: Fever >100.4 F Last Admin: 04/21/17 08:33 Dose: 650 mg Famotidine (Pepcid) 20 mg PO BID [facility] Last Admin: 04/21/17 17:50 Dose: 20 mg Vancomycin HCl 1 gm/ Sodium (Chloride) 250 mls @ 166.667 mls/hr IVPB Q12 [facility] Last Admin: 04/21/17 08:33 Dose: 166.667 mls/hr Meropenem 1 gm/ Sodium (Chloride) 100 mls @ 100 mls/hr IVPB 0600,1400,2200 [facility] Last Admin: 04/21/17 16:07 Dose: 100 mls/hr Sodium Chloride (Sodium Chloride 0.9%) 1,000 mls @ 100 mls/hr IV .Q10H [facility] Stop: 04/22/17 23:59 Last Admin: 04/21/17 16:08 Dose: 100 mls/hr - Labs Labs: 04/21/17 06:45 04/21/17 06:45 PT 12.6 SECONDS (9.6-11.2) H 04/20/17 05:30 INR 1.21 (0.92-1.08) H 04/20/17 05:30 APTT 33.7 SECONDS (23.3-32.5) H 04/20/17 05:30 - Head Exam Head Exam: ATRAUMATIC - Eye Exam Eye Exam: Normal appearance - ENT Exam ENT Exam: Mucous Membranes Dry - Respiratory Exam Respiratory Exam: NORMAL BREATHING PATTERN - Cardiovascular Exam Cardiovascular Exam: +S1, +S2 - GI/Abdominal Exam GI & Abdominal Exam: Normal Bowel Sounds - Extremities Exam Extremities Exam: Normal Inspection Assessment and Plan (1) Pancytopenia Assessment & Plan: for bone marrow biopsy tomorrow for further evaluation Status: Acute
[2017-04-21] MEDS ORDERED: Sodium Chloride 0.9% 500 ML IV ONE (23:46)
[2017-04-22] MEDS: Sodium Chloride 0.9% 1,000 ML IV SCH (05:01)
[2017-04-22] MEDS: Meropenem 1 GM in Sodium Chloride 0.9% 100 ML IVPB SCH ×2 (05:04→22:56)
[2017-04-22 06:53] LABS: BASO % 0.7 % (0.0-2.0); EOS % 0.3 % (0.0-4.0); HEMOGLOBIN 8.7 g/dL (12.0-18.0); LYMPH # 0.7 K/uL (1.0-4.3); LYMPH % 27.2 % (20.0-40.0); MEAN CELL VOLUME 89.7 fl (80.0-94.0); MEAN CORPUSCULAR HEMOGLOBIN 30.5 pg (27.0-31.0); MEAN PLATELET VOLUME 10.1 fl (7.2-11.7); MONO # 0.2 K/uL (0.0-0.8); MONO % 7.1 % (0.0-10.0); NEUT # 1.6 K/uL (1.8-7.0); NEUT % 64.7 % (50.0-75.0); NRBC % 0.2 % (0.0-0.0); RBC 2.84 Mil/uL (4.40-5.90); RED CELL DISTRIBUTION WIDTH 16.6 % (11.5-14.5); WHITE BLOOD COUNT 2.5 K/uL (4.8-10.8)
[2017-04-22 07:09] LABS: INR 1.2 (0.92-1.08); PROTHROMBIN TIME 12.5 SECONDS (9.6-11.2)
[2017-04-22 07:14] LABS: ALB/GLOB RATIO 0.7 (1.0-2.1); ALBUMIN 2.1 g/dL (3.5-5.0); ALT/SGPT 63 U/L (21-72); AST/SGOT 74 U/L (17-59); BLOOD UREA NITROGEN 10 mg/dl (9-20); CALCIUM 7.2 mg/dL (8.4-10.2); GFR AFRICAN-AMERICAN > 60; GFR NON-AFRICAN AMERICAN > 60
[2017-04-22] MEDS ORDERED: Sodium Chloride 0.9% 500 ML IV ONE ×2 (08:04→19:04)
[2017-04-22] MEDS ORDERED: Chlorhexidine Gluconate 1 APPL/PKT TP ONE (08:05)
[2017-04-22] MEDS ORDERED: Sodium Chloride 0.9% 1,000 ML IV SCH (08:10)
--- NOTE | 2017-04-22 09:48 | CP.PCM.PN ---
Subjective - Date & Time of Evaluation Date of Evaluation: 04/22/17 Time of Evaluation: 09:30 - Subjective Subjective: persistently febrile however denies any other symptoms except for scroatl swelling no CP no SOB no abd pain Platelet was transfused this morning Plan for BM biopsy today also plan for surgery with Urology today Pt NPO Objective - Vital Signs/Intake and Output Vital Signs (last 24 hours): Temp Pulse Resp BP Pulse Ox 100.5 F H 115 H 18 92/52 L 97 04/22/17 08:18 04/22/17 08:18 04/22/17 08:18 04/22/17 08:18 04/22/17 08:18 - Medications Medications: Current Medications Acetaminophen (Tylenol 325mg Tab) 650 mg PO Q4 PRN PRN Reason: Fever >100.4 F Last Admin: 04/22/17 05:01 Dose: 650 mg Famotidine (Pepcid) 20 mg PO BID [facility] Last Admin: 04/22/17 08:30 Dose: Not Given Vancomycin HCl 1 gm/ Sodium (Chloride) 250 mls @ 166.667 mls/hr IVPB Q12 [facility] Last Admin: 04/21/17 21:50 Dose: 166.667 mls/hr Meropenem 1 gm/ Sodium (Chloride) 100 mls @ 100 mls/hr IVPB 0600,1400,2200 [facility] Last Admin: 04/22/17 05:04 Dose: 100 mls/hr Sodium Chloride (Sodium Chloride 0.9%) 1,000 mls @ 125 mls/hr IV .Q8H [facility] Stop: 04/22/17 23:59 Last Admin: 04/22/17 08:30 Dose: 125 mls/hr Sodium Chloride (Sodium Chloride Tab) 1 gm PO DAILY [facility] Last Admin: 04/22/17 09:38 Dose: 1 gm - Labs Labs: 04/22/17 05:15 04/22/17 05:15 PT 12.5 SECONDS (9.6-11.2) H 04/22/17 05:15 INR 1.20 (0.92-1.08) H 04/22/17 05:15 APTT 33.0 SECONDS (23.3-32.5) H 04/22/17 05:15 - Constitutional Appears: No Acute Distress - Head Exam Head Exam: ATRAUMATIC, NORMAL INSPECTION, NORMOCEPHALIC - Eye Exam Eye Exam: EOMI, Normal appearance, PERRL Pupil Exam: NORMAL ACCOMODATION - ENT Exam ENT Exam: Mucous Membranes Moist, Normal External Ear Exam - Neck Exam Neck Exam: Full ROM. absent: Meningismus - Respiratory Exam Respiratory Exam: NORMAL BREATHING PATTERN. absent: Respiratory Distress - Cardiovascular Exam Cardiovascular Exam: REGULAR RHYTHM, +S1, +S2 - GI/Abdominal Exam GI & Abdominal Exam: Soft, Normal Bowel Sounds. absent: Tenderness - Exam Exam: Scrotal Swelling (with dry ulcers on scrotal skin, and some denuded and desquamating areas). absent: Testicular Tenderness, Uretheral Discharge - Neurological Exam Neurological Exam: Alert, Awake, CN II-XII Intact, Normal Gait, Oriented x3 Neuro motor strength exam: Left Upper Extremity: 5, Right Upper Extremity: 5, Left Lower Extremity: 5, Right Lower Extremity: 5 - Psychiatric Exam Psychiatric exam: Normal Affect, Normal Mood - Skin Skin Exam: Dry, Normal Color, Warm Assessment and Plan - Assessment and Plan (Free Text) Assessment: 41 yo male with no significant PMH came in complaining of enlarged scrotum for 1 month, after lifting heavy objects and macerated scrotal skin. Denied scrotal pain, pruritus , dysuria or penile discharge. Admitted having on and off fever. In ER found to be febrile to 102.. 1. Sepsis ( POA) sec to Scrotal Swelling with dry ulceration unclear etiology r/o Osvaldo still febrile Lactic acid normal, sl elevated procalcitonin ESR normal Wound cx growing ESBL E coli and MSSA Blood c/s and Urine c/s : negative Empirically started on IV rocephin , Doxycycline and Vancomycin IV- changed by Dr Rick to IV Meropenem/Vanco after c/s showed ESBL E coli HIV - non reactive RPR : neg Ct abdomen and pelvis showed no acute pathology except enlarged adrenals Urology consulted - discussed case with Dr Estes - Plan for Biopsy , scrotal exploration today Continue current management Surgery consulted- discussed case with Dr Bermudez Platelet transfused prior to surgery will also transfuse 1 unit PRBC 2. Hyponatremia on IVF : NS Serum osm, Urine osm 3. Pancytopenia unclear etiology, need to r/o malignancy anemia work up, showed normal Vitamin B12 ,Very elevated Ferritin levels 3040 HIV not reactive hepatitis status -negative Hematology eval - Dr Melgar- plan for BM biopsy today Transfuse 1 unit Platelet and PRBC today 4. DVT prophylaxis SCD no anticoag sec to low Platelet
[2017-04-22] MEDS ORDERED: Lidocaine 2% Inj (20ml) SC ONE (11:53)
[2017-04-22] MEDS ORDERED: Povidone Iodine Topical 10% Sol ONE (12:05)
[2017-04-22 12:22] LABS: HEMOGLOBIN 7.7 g/dL (12.0-18.0); MEAN CORPUSCULAR HEMOGLOBIN 30.2 pg (27.0-31.0); MEAN CORPUSCULAR HGB CONC 33.6 g/dL (33.0-37.0); RBC 2.53 Mil/uL (4.40-5.90); WHITE BLOOD COUNT 2.8 K/uL (4.8-10.8)
[2017-04-22 12:32] LABS: BLOOD UREA NITROGEN 10 mg/dl (9-20); CALCIUM 7.2 mg/dL (8.4-10.2); GFR AFRICAN-AMERICAN > 60; GFR NON-AFRICAN AMERICAN > 60
--- NOTE | 2017-04-22 12:36 | CP.PCM.PN ---
Subjective - Date & Time of Evaluation Date of Evaluation: 04/22/17 Time of Evaluation: 12:36 - Subjective Subjective: ID Note- Pt. seen today. he is getting BM biosy by . Pt. denies any GEORGES or any n/v . denies any diarrhea. only c/o is chills. Objective - Vital Signs/Intake and Output Vital Signs (last 24 hours): Temp Pulse Resp BP Pulse Ox 98.9 F 109 H 18 92/48 L 98 04/22/17 12:20 04/22/17 12:20 04/22/17 12:20 04/22/17 12:20 04/22/17 12:20 - Medications Medications: Current Medications Acetaminophen (Tylenol 325mg Tab) 650 mg PO Q4 PRN PRN Reason: Fever >100.4 F Last Admin: 04/22/17 05:01 Dose: 650 mg Famotidine (Pepcid) 20 mg PO BID [facility] Last Admin: 04/22/17 08:30 Dose: Not Given Vancomycin HCl 1 gm/ Sodium (Chloride) 250 mls @ 166.667 mls/hr IVPB Q12 [facility] Last Admin: 04/22/17 11:42 Dose: 166.667 mls/hr Meropenem 1 gm/ Sodium (Chloride) 100 mls @ 100 mls/hr IVPB 0600,1400,2200 [facility] Last Admin: 04/22/17 05:04 Dose: 100 mls/hr Sodium Chloride (Sodium Chloride 0.9%) 1,000 mls @ 125 mls/hr IV .Q8H [facility] Stop: 04/22/17 23:59 Last Admin: 04/22/17 08:30 Dose: 125 mls/hr Sodium Chloride (Sodium Chloride Tab) 1 gm PO DAILY [facility] Last Admin: 04/22/17 09:38 Dose: 1 gm - Labs Labs: - Additional Findings Additional findings: - Constitutional Appears: No Acute Distress - Head Exam Head Exam: ATRAUMATIC - Eye Exam Eye Exam: PERRL - ENT Exam ENT Exam: Normal Oropharynx - Respiratory Exam Respiratory Exam: Clear to Auscultation Bilateral, NORMAL BREATHING PATTERN - Cardiovascular Exam Cardiovascular Exam: RRR, +S1, +S2 - GI/Abdominal Exam GI & Abdominal Exam: Normal Bowel Sounds, Soft Additional comments: NT, ND - Exam Additional comments: scrotal swelling and edema with areas of denuded sloughed off skin and one larger flat lesion with white edges, slightly erythematous no discharge today no open wounds - Extremities Exam Extremities exam: Positive for: normal inspection Neuro - AAO x 3 Laboratory Results - last 72 hr 04/20/17 04/20/17 04/20/17 05:30 05:30 05:30 WBC 2.8 L RBC 2.80 L Hgb 8.4 L Hct 25.1 L MCV 89.5 D MCH 29.9 MCHC 33.4 RDW 16.7 H Plt Count 60 L MPV 9.9 Neut % (Auto) 69.3 Lymph % (Auto) 23.6 [place] % (Auto) 6.6 Eos % (Auto) 0.3 Baso % (Auto) 0.2 Neut # 1.9 Lymph # 0.7 L [place] # 0.2 Eos # 0.0 Baso # 0.0 PT INR APTT Fibrinogen Sodium 128 L Potassium 3.3 L Chloride 101 Carbon Dioxide 21 L Anion Gap 9 L BUN 10 Creatinine 0.6 L Est GFR ( Amer) > 60 Est GFR (Non-Af Amer) > 60 Random Glucose 125 H Serum Osmolality Lactic Acid 1.2 Calcium 7.3 L Total Bilirubin AST ALT Alkaline Phosphatase Total Protein Albumin Globulin Albumin/Globulin Ratio Procalcitonin Cortisol AM Sample Blood Type Blood Type Confirm Antibody Screen Crossmatch BBK History Checked 04/20/17 04/20/17 04/20/17 05:30 05:30 07:30 WBC RBC Hgb Hct MCV MCH MCHC RDW Plt Count MPV Neut % (Auto) Lymph % (Auto) [place] % (Auto) Eos % (Auto) Baso % (Auto) Neut # Lymph # [place] # Eos # Baso # PT 12.6 H INR 1.21 H APTT 33.7 H Fibrinogen 207 Sodium Potassium Chloride Carbon Dioxide Anion Gap BUN Creatinine Est GFR ( Amer) Est GFR (Non-Af Amer) Random Glucose Serum Osmolality Lactic Acid Calcium Total Bilirubin AST ALT Alkaline Phosphatase Total Protein Albumin Globulin Albumin/Globulin Ratio Procalcitonin 0.84 H Cortisol AM Sample Blood Type O POSITIVE Blood Type Confirm Antibody Screen Negative Crossmatch See Detail BBK History Checked No verified bt 04/20/17 04/20/17 04/21/17 08:00 17:30 06:45 WBC 3.5 L RBC 3.02 L Hgb 9.1 L Hct 27.5 L MCV 91.1 MCH 30.1 MCHC 33.0 RDW 16.6 H Plt Count 65 L MPV 9.8 Neut % (Auto) 67.7 Lymph % (Auto) 25.0 [place] % (Auto) 6.8 Eos % (Auto) 0.1 Baso % (Auto) 0.4 Neut # 2.4 Lymph # 0.9 L [place] # 0.2 Eos # 0.0 Baso # 0.0 PT INR APTT Fibrinogen Sodium Potassium Chloride Carbon Dioxide Anion Gap BUN Creatinine Est GFR ( Amer) Est GFR (Non-Af Amer) Random Glucose Serum Osmolality Lactic Acid Calcium Total Bilirubin AST ALT Alkaline Phosphatase Total Protein Albumin Globulin Albumin/Globulin Ratio Procalcitonin Cortisol AM Sample 8.6 Blood Type Blood Type Confirm O POSITIVE Antibody Screen Crossmatch BBK History Checked 04/21/17 04/21/17 04/22/17 06:45 06:45 05:15 WBC 2.5 L RBC 2.84 L Hgb 8.7 L Hct 25.5 L MCV 89.7 MCH 30.5 MCHC 34.0 RDW 16.6 H Plt Count 60 L MPV 10.1 Neut % (Auto) 64.7 Lymph % (Auto) 27.2 [place] % (Auto) 7.1 Eos % (Auto) 0.3 Baso % (Auto) 0.7 Neut # 1.6 L Lymph # 0.7 L [place] # 0.2 Eos # 0.0 Baso # 0.0 PT INR APTT Fibrinogen Sodium 130 L Potassium 4.3 Chloride 102 Carbon Dioxide 24 Anion Gap 8 L BUN 10 Creatinine 0.6 L Est GFR ( Amer) > 60 Est GFR (Non-Af Amer) > 60 Random Glucose 142 H Serum Osmolality Lactic Acid Calcium 7.5 L Total Bilirubin 1.3 AST 76 H ALT 65 Alkaline Phosphatase 155 H D Total Protein 5.2 L Albumin 2.2 L Globulin 2.9 Albumin/Globulin Ratio 0.8 L Procalcitonin 0.84 H Cortisol AM Sample Blood Type Blood Type Confirm Antibody Screen Crossmatch BBK History Checked 04/22/17 04/22/17 04/22/17 05:15 05:15 08:19 WBC RBC Hgb Hct MCV MCH MCHC RDW Plt Count MPV Neut % (Auto) Lymph % (Auto) [place] % (Auto) Eos % (Auto) Baso % (Auto) Neut # Lymph # [place] # Eos # Baso # PT 12.5 H INR 1.20 H APTT 33.0 H Fibrinogen Sodium 126 L Potassium 3.8 Chloride 102 Carbon Dioxide 21 L Anion Gap 7 L BUN 10 Creatinine 0.6 L Est GFR ( Amer) > 60 Est GFR (Non-Af Amer) > 60 Random Glucose 133 H Serum Osmolality 273 Lactic Acid Calcium 7.2 L Total Bilirubin 1.4 H AST 74 H ALT 63 Alkaline Phosphatase 143 H Total Protein 4.9 L Albumin 2.1 L Globulin 2.9 Albumin/Globulin Ratio 0.7 L Procalcitonin Cortisol AM Sample Blood Type Blood Type Confirm Antibody Screen Crossmatch BBK History Checked 04/22/17 04/22/17 11:45 11:45 WBC 2.8 L RBC 2.53 L Hgb 7.7 L Hct 22.8 L MCV 90.0 MCH 30.2 MCHC 33.6 RDW 17.0 H Plt Count 75 L MPV Neut % (Auto) Lymph % (Auto) [place] % (Auto) Eos % (Auto) Baso % (Auto) Neut # Lymph # [place] # Eos # Baso # PT INR APTT Fibrinogen Sodium 130 L Potassium 3.6 Chloride 104 Carbon Dioxide 21 L Anion Gap 9 L BUN 10 Creatinine 0.6 L Est GFR ( Amer) > 60 Est GFR (Non-Af Amer) > 60 Random Glucose 109 Serum Osmolality Lactic Acid Calcium 7.2 L Total Bilirubin AST ALT Alkaline Phosphatase Total Protein Albumin Globulin Albumin/Globulin Ratio Procalcitonin Cortisol AM Sample Blood Type Blood Type Confirm Antibody Screen Crossmatch BBK History Checked Microbiology 04/20/17 05:30 Blood Blood Culture - Preliminary NO GROWTH AFTER 48 HOURS 04/16/17 21:48 Blood-Venous Blood Culture - Final NO GROWTH AFTER 5 DAYS 04/16/17 21:48 Blood-Venous Gram Stain - Final TEST NOT PERFORMED 04/18/17 18:30 Blood-Venous Blood Culture - Preliminary NO GROWTH AFTER 3 DAYS 04/18/17 19:00 Blood-Venous Blood Culture - Preliminary NO GROWTH AFTER 3 DAYS 04/18/17 10:09 Urethra GC Culture - Final NO GC ISOLATED 04/16/17 17:00 Scrotum Gram Stain - Final 04/16/17 17:00 Scrotum Wound Culture - Final Escherichia Coli Staphylococcus Aureus 04/16/17 21:48 Urine Urine Culture - Final No Growth (<1,000 CFU/ML) Assessment and Plan (1) Left hydrocele Status: Acute (2) Fever Status: Acute (3) Scrotal edema Status: Acute - Assessment and Plan (Free Text) Assessment: A/P- 41 year old male admitted with testicular pain, edema and fever found to have large left hydrocele on imaging, no hydronephrosis on ct report. spiked temp 103 last night blood cx- neg x 4 urine cx- negative urethral cx- neg for GC fluid cx from scrotal region- MSSA and ESBL e.coli CXR- negative as per report plan- in light of the scrotal lesions and pancytopenia and continued fever despite broad spectrum IV antibiotics malignancy should be ruled out. would most likely need Bx of the scrotal lesion . advise another scrotal US rule out any fluid collection or abscess or gangrene. await result of BM biopsy . check 2 more blood cx. continue with IV meropenem for ESBl e.coli wound cx. ay #5. continue with IV vancomycin for the MSSA wound cx. keep trough <15. day #5. All above d/w patient at length. All above d/w Hospitalist as well.
--- NOTE | 2017-04-22 13:11 | CP.PCM.PN ---
Subjective - Date & Time of Evaluation Date of Evaluation: 04/22/17 Time of Evaluation: 13:00 - Subjective Subjective: Bone marrow aspiration and biopsy procedure Indication: Pancytopenia - Time-out was called to confirm: patients name and date of , procedure, side and site of biopsy, safety procedures followed. - Performed by: self. - Informed consent: signed by patient. - Aspiration and biopsy site: [RIGHT] superior posterior iliac crest. - Patient position: [left lateral decubitus] - Preparation and technique: sterile preparation of site with Betadyne, Chloraprep, draped to expose aspirate/biopsy area, local anesthesia with 2% lidocaine (approximately 10ml), frequent pressure application on incision to maintain hemostasis. - Tissue obtained: bone marrow aspirate and biopsy were successfully obtained in sterile manner. - Toleration of procedure and any complications: slight localized bleeding (<1ml ). Patient tolerated procedure well with minimal pain. Objective - Vital Signs/Intake and Output Vital Signs (last 24 hours): Temp Pulse Resp BP Pulse Ox 98.9 F 109 H 18 92/48 L 98 04/22/17 12:20 04/22/17 12:20 04/22/17 12:20 04/22/17 12:20 04/22/17 12:20 - Medications Medications: Current Medications Acetaminophen (Tylenol 325mg Tab) 650 mg PO Q4 PRN PRN Reason: Fever >100.4 F Last Admin: 04/22/17 05:01 Dose: 650 mg Famotidine (Pepcid) 20 mg PO BID [facility] Last Admin: 04/22/17 08:30 Dose: Not Given Vancomycin HCl 1 gm/ Sodium (Chloride) 250 mls @ 166.667 mls/hr IVPB Q12 [facility] Last Admin: 04/22/17 11:42 Dose: 166.667 mls/hr Meropenem 1 gm/ Sodium (Chloride) 100 mls @ 100 mls/hr IVPB 0600,1400,2200 [facility] Last Admin: 04/22/17 05:04 Dose: 100 mls/hr Sodium Chloride (Sodium Chloride 0.9%) 1,000 mls @ 125 mls/hr IV .Q8H [facility] Stop: 04/22/17 23:59 Last Admin: 04/22/17 08:30 Dose: 125 mls/hr Sodium Chloride (Sodium Chloride Tab) 1 gm PO DAILY [facility] Last Admin: 04/22/17 09:38 Dose: 1 gm - Labs Labs: 04/22/17 11:45 04/22/17 11:45 PT 12.5 SECONDS (9.6-11.2) H 04/22/17 05:15 INR 1.20 (0.92-1.08) H 04/22/17 05:15 APTT 33.0 SECONDS (23.3-32.5) H 04/22/17 05:15 - Head Exam Head Exam: ATRAUMATIC - Eye Exam Eye Exam: Normal appearance - ENT Exam ENT Exam: Mucous Membranes Dry - Respiratory Exam Respiratory Exam: NORMAL BREATHING PATTERN - Cardiovascular Exam Cardiovascular Exam: +S1, +S2 - GI/Abdominal Exam GI & Abdominal Exam: Normal Bowel Sounds - Extremities Exam Extremities Exam: Normal Inspection Assessment and Plan (1) Pancytopenia Assessment & Plan: S/p bone marrow aspirate and biopsy today f/u results ?occult malignancy Status: Acute
[2017-04-22] MEDS ORDERED: Propofol 10 mg/ml Inj (20 ML) ONE (14:08)
[2017-04-22] MEDS ORDERED: Succinylcholine 200 mg/10 ml Inj IV ONE (14:09)
[2017-04-22] MEDS ORDERED: Midazolam 2 MG/2 ML VIAL ONE (14:09)
[2017-04-22] MEDS ORDERED: Lidocaine Hydrochloride 5 ML INJ ONE (14:09)
[2017-04-22] MEDS ORDERED: Etomidate 20 mg/10ml Inj IV ONE (14:11)
[2017-04-22] MEDS ORDERED: Meropenem 500 mg Inj IVPB ONE (14:45)
[2017-04-22] MEDS ORDERED: Lactated Ringer's 1,000 ML IV ONE ×2 (15:15)
[2017-04-22] MEDS ORDERED: Bacitracin Ointment 30 GM TUBE ONE (16:02)
[2017-04-22] MEDS ORDERED: Sodium Chloride 0.9% 1,000 ML IV ONE (16:27)
[2017-04-22] MEDS ORDERED: HYDROmorphone 0.5 mg/0.5 ml ISec IVP PRN (16:35)
--- NOTE | 2017-04-22 16:41 | PCM.SURG1 ---
Surgeon's Initial Post Op Note - Surgeon's Notes Surgeon: Franklyn Corporate Representative: GORAN Type of Anesthesia: General LMA Anesthesia Administered By: Staff Pre-Operative Diagnosis: sepsis/gangrene of scrotum scrotal abcess Operative Findings: same Post-Operative Diagnosis: same Operation Performed: Radical scrotal debridmont.orchiectomy left Specimen/Specimens Removed: scrotal skin, left testicle Estimated Blood Loss: EBL {In ML}: 0 Blood Products Given: N/A Drains Used: No Drains Post-Op Condition: Good Date of Surgery/Procedure: 04/22/17 Time of Surgery/Procedure: 16:42
--- NOTE | 2017-04-22 16:47 | CP.PCM.PN ---
Subjective - Date & Time of Evaluation Date of Evaluation: 04/22/17 Time of Evaluation: 16:47 - Subjective Subjective: Discussed with Dr Stephanie SHEIKH. pt may need further debridmont in future. pt may also need plastic reconstruction and further debridmont of perineal area.Transfer to a tertiary care center may be advisable. Franklyn Objective - Vital Signs/Intake and Output Vital Signs (last 24 hours): Temp Pulse Resp BP Pulse Ox 98.9 F 109 H 18 92/48 L 98 04/22/17 12:20 04/22/17 12:20 04/22/17 12:20 04/22/17 12:20 04/22/17 12:20 Intake and Output: 04/22/17 04/22/17 06:59 18:59 Intake Total 1425 Balance 1425 - Medications Medications: Current Medications Acetaminophen (Tylenol 325mg Tab) 650 mg PO Q4 PRN PRN Reason: Fever >100.4 F Last Admin: 04/22/17 05:01 Dose: 650 mg Famotidine (Pepcid) 20 mg PO BID [facility] Last Admin: 04/22/17 08:30 Dose: Not Given Hydromorphone HCl (Dilaudid) 0.5 mg IVP Q5M PRN PRN Reason: Pain, moderate (4-7) Stop: 04/22/17 18:36 Vancomycin HCl 1 gm/ Sodium (Chloride) 250 mls @ 166.667 mls/hr IVPB Q12 [facility] Last Admin: 04/22/17 11:42 Dose: 166.667 mls/hr Meropenem 1 gm/ Sodium (Chloride) 100 mls @ 100 mls/hr IVPB 0600,1400,2200 [facility] Last Admin: 04/22/17 05:04 Dose: 100 mls/hr Sodium Chloride (Sodium Chloride 0.9%) 1,000 mls @ 125 mls/hr IV .Q8H [facility] Stop: 04/22/17 23:59 Last Admin: 04/22/17 08:30 Dose: 125 mls/hr Meperidine HCl (Demerol) 12.5 mg IVP Q5M PRN PRN Reason: Shivering/Rigor Sodium Chloride (Sodium Chloride Tab) 1 gm PO DAILY [facility] Last Admin: 04/22/17 09:38 Dose: 1 gm - Labs Labs: 04/22/17 11:45 04/22/17 11:45 PT 12.5 SECONDS (9.6-11.2) H 04/22/17 05:15 INR 1.20 (0.92-1.08) H 04/22/17 05:15 APTT 33.0 SECONDS (23.3-32.5) H 04/22/17 05:15
[2017-04-22] MEDS ORDERED: Hydrogen Peroxide 237 ML SOL TP ONE (23:34)
[2017-04-23] MEDS ORDERED: Sodium Chloride 0.9% 500 ML IV ONE (04:44)
[2017-04-23] MEDS: Meropenem 1 GM in Sodium Chloride 0.9% 100 ML IVPB SCH ×3 (05:04→23:00)
[2017-04-23] MEDS: Sodium Chloride 0.9% 1,000 ML IV SCH ×3 (06:49→20:49)
[2017-04-23 08:15] LABS: ALB/GLOB RATIO 0.7 (1.0-2.1); ALBUMIN 1.7 g/dL (3.5-5.0); ALT/SGPT 63 U/L (21-72); AST/SGOT 106 U/L (17-59); BLOOD UREA NITROGEN 11 mg/dl (9-20); CALCIUM 6.9 mg/dL (8.4-10.2); GFR AFRICAN-AMERICAN > 60; GFR NON-AFRICAN AMERICAN > 60
[2017-04-23 08:19] LABS: BASO % 0.4 % (0.0-2.0); EOS % 0.2 % (0.0-4.0); LYMPH # 0.6 K/uL (1.0-4.3); LYMPH % 26.2 % (20.0-40.0); MEAN CELL VOLUME 91.7 fl (80.0-94.0); MEAN CORPUSCULAR HEMOGLOBIN 30.1 pg (27.0-31.0); MEAN CORPUSCULAR HGB CONC 32.9 g/dL (33.0-37.0); MEAN PLATELET VOLUME 9.9 fl (7.2-11.7); MONO # 0.2 K/uL (0.0-0.8); MONO % 7.4 % (0.0-10.0); NEUT # 1.5 K/uL (1.8-7.0); NEUT % 65.8 % (50.0-75.0); RBC 2.66 Mil/uL (4.40-5.90); RED CELL DISTRIBUTION WIDTH 16.5 % (11.5-14.5); WHITE BLOOD COUNT 2.3 K/uL (4.8-10.8)
[2017-04-23] MEDS: Povidone Iodine Topical 10% Sol TOP SCH (09:50)
--- NOTE | 2017-04-23 10:13 | CARD ---
APPROVED REPORT EKG Measurement Heart [id number] TN [id number] <Conclusion> Sinus tachycardia Otherwise normal ECG
--- NOTE | 2017-04-23 10:15 | CP.PCM.PN ---
Subjective - Date & Time of Evaluation Date of Evaluation: 04/23/17 Time of Evaluation: 10:12 - Subjective Subjective: POD#1 wound intact,irrigated with H2O2/betadine adams mk,continuesing staff instructed on daily irrigation. A good post op course P daily irrigation abd further Debridoment as necessary Hosay Objective - Vital Signs/Intake and Output Vital Signs (last 24 hours): Temp Pulse Resp BP Pulse Ox 99.8 F H 118 H 18 87/52 L 99 04/23/17 08:05 04/23/17 08:05 04/23/17 08:05 04/23/17 04:45 04/23/17 08:05 - Medications Medications: Current Medications Acetaminophen (Tylenol 325mg Tab) 650 mg PO Q4 PRN PRN Reason: Fever >100.4 F Last Admin: 04/23/17 04:32 Dose: 650 mg Famotidine (Pepcid) 20 mg PO BID [facility] Last Admin: 04/23/17 09:47 Dose: 20 mg Vancomycin HCl 1 gm/ Sodium (Chloride) 250 mls @ 166.667 mls/hr IVPB Q12 [facility] Last Admin: 04/23/17 09:48 Dose: 166.667 mls/hr Meropenem 1 gm/ Sodium (Chloride) 100 mls @ 100 mls/hr IVPB 0600,1400,2200 [facility] Last Admin: 04/23/17 05:04 Dose: 100 mls/hr Sodium Chloride (Sodium Chloride 0.9%) 1,000 mls @ 125 mls/hr IV .Q8H [facility] Stop: 04/24/17 04:45 Last Admin: 04/23/17 06:49 Dose: 125 mls/hr Meperidine HCl (Demerol) 12.5 mg IVP Q5M PRN PRN Reason: Shivering/Rigor Last Admin: 04/22/17 16:46 Dose: 12.5 mg Povidone Iodine (Betadine 10% Topical Soln) 20 ml TOP DAILY [facility] Sodium Chloride (Sodium Chloride Tab) 1 gm PO DAILY [facility] Last Admin: 04/23/17 09:47 Dose: 1 gm - Labs Labs: 04/23/17 08:05 04/23/17 Unknown PT 12.5 SECONDS (9.6-11.2) H 04/22/17 05:15 INR 1.20 (0.92-1.08) H 04/22/17 05:15 APTT 33.0 SECONDS (23.3-32.5) H 04/22/17 05:15
[2017-04-23] MEDS ORDERED: Potassium Chloride 20 mEq/15 ml LIQ UD PO ONE (11:56)
[2017-04-23] MEDS ORDERED: Sodium Chloride 0.9% 1,000 ML IV SCH (16:50)
--- NOTE | 2017-04-23 17:03 | CP.PCM.PN ---
Subjective - Date & Time of Evaluation Date of Evaluation: 04/23/17 Time of Evaluation: 13:00 - Subjective Subjective: Patient seen and evaluated bedside. Feeling better. Denies any pain. BP on the lower side and persistently febrile Tmax 103 WBC 2.3 Hgb 8 Plt 60 K Na 129 k 3.5 No acute issues overnight Objective - Vital Signs/Intake and Output Vital Signs (last 24 hours): Temp Pulse Resp BP Pulse Ox 98.1 F 107 H 20 85/48 L 94 L 04/23/17 16:00 04/23/17 16:00 04/23/17 16:00 04/23/17 16:00 04/23/17 16:00 - Medications Medications: Current Medications Acetaminophen (Tylenol 325mg Tab) 650 mg PO Q4 PRN PRN Reason: Fever >100.4 F Last Admin: 04/23/17 11:50 Dose: 650 mg Famotidine (Pepcid) 20 mg PO BID [facility] Last Admin: 04/23/17 09:47 Dose: 20 mg Vancomycin HCl 1 gm/ Sodium (Chloride) 250 mls @ 166.667 mls/hr IVPB Q12 [facility] Last Admin: 04/23/17 09:48 Dose: 166.667 mls/hr Meropenem 1 gm/ Sodium (Chloride) 100 mls @ 100 mls/hr IVPB 0600,1400,2200 [facility] Last Admin: 04/23/17 14:47 Dose: 100 mls/hr Sodium Chloride (Sodium Chloride 0.9%) 1,000 mls @ 999 mls/hr IV .Q1H1M [facility] Stop: 04/24/17 04:45 Ibuprofen (Motrin Tab) 600 mg PO Q6 PRN PRN Reason: Fever >100.4 F Meperidine HCl (Demerol) 12.5 mg IVP Q5M PRN PRN Reason: Shivering/Rigor Last Admin: 04/22/17 16:46 Dose: 12.5 mg Povidone Iodine (Betadine 10% Topical Soln) 20 ml TOP DAILY [facility] Sodium Chloride (Sodium Chloride Tab) 1 gm PO DAILY [facility] Last Admin: 04/23/17 09:47 Dose: 1 gm - Labs Labs: 04/23/17 08:05 04/23/17 Unknown PT 12.5 SECONDS (9.6-11.2) H 04/22/17 05:15 INR 1.20 (0.92-1.08) H 04/22/17 05:15 APTT 33.0 SECONDS (23.3-32.5) H 04/22/17 05:15 - Constitutional Appears: Non-toxic, No Acute Distress - Head Exam Head Exam: ATRAUMATIC, NORMAL INSPECTION, NORMOCEPHALIC - Eye Exam Eye Exam: EOMI, Normal appearance, PERRL Pupil Exam: NORMAL ACCOMODATION - ENT Exam ENT Exam: Mucous Membranes Moist, Normal Exam - Neck Exam Neck Exam: Full ROM, Normal Inspection - Respiratory Exam Respiratory Exam: Clear to Ausculation Bilateral. absent: Rales, Rhonchi, Wheezes - Cardiovascular Exam Cardiovascular Exam: REGULAR RHYTHM, RRR, +S1, +S2. absent: JVD - GI/Abdominal Exam GI & Abdominal Exam: Soft, Normal Bowel Sounds. absent: Distended, Guarding, Tenderness, Rebound - Rectal Exam Rectal Exam: Deferred - Exam Exam: Scrotal Swelling External exam: Swelling Additional comments: midline surgical incisuion partially closed with yari drain in place , warm to touch - Extremities Exam Extremities Exam: Full ROM, Normal Capillary Refill, Normal Inspection. absent : Pedal Edema - Back Exam Back Exam: NORMAL INSPECTION - Neurological Exam Neurological Exam: Alert, Awake, CN II-XII Intact, Oriented x3 - Psychiatric Exam Psychiatric exam: Normal Affect - Skin Skin Exam: Dry, Warm Assessment and Plan - Assessment and Plan (Free Text) Assessment: 41 yo male with no significant PMH came in complaining of enlarged scrotum for 1 month, after lifting heavy objects and macerated scrotal skin. Denied scrotal pain, pruritus , dysuria or penile discharge. Admitted having on and off fever. In ER found to be febrile to 102. 1. 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 Estes Wound cx growing ESBL E coli and MSSA Continue IV antibiotics, wound care daily Discussed with Dr. Estes. recommend referral to tertiary center since patient might need more extensive intervention and reconstructive surgery in the future Blood c/s and Urine c/s : negative, HIV and RPR negaticve, lactic acid - nomal Continue Meropenem and vancomycin CT abdomen and pelvis showed no acute pathology except enlarged adrenals Surgery consulted- Dr Bermudez Continue aggressive fluid resuscitation Tylenol and Motrin PRN for fever control 2. Hyponatremia Continue NS f/u Serum osm, Urine osm 3. Pancytopenia unclear etiology, r/o malignancy anemia work up, showed normal Vitamin B12 ,Very elevated Ferritin levels 3040 HIV not reactive hepatitis status -negative Hematology eval - Dr Melgar- plan for BM biopsy Transfused 1 unit Platelet and PRBC before surgery 4. DVT prophylaxis SCD no anticoag sec to low Platelet
[2017-04-24] MEDS: Sodium Chloride 0.9% 1,000 ML IV SCH ×3 (01:48→20:39)
[2017-04-24] MEDS: Meropenem 1 GM in Sodium Chloride 0.9% 100 ML IVPB SCH ×4 (05:14→22:01)
[2017-04-24 06:48] LABS: HEMOGLOBIN 8.2 g/dL (12.0-18.0); MEAN CELL VOLUME 89.9 fl (80.0-94.0); MEAN CORPUSCULAR HEMOGLOBIN 30.3 pg (27.0-31.0); MEAN CORPUSCULAR HGB CONC 33.8 g/dL (33.0-37.0); RBC 2.69 Mil/uL (4.40-5.90); RED CELL DISTRIBUTION WIDTH 17.1 % (11.5-14.5)
[2017-04-24 06:53] LABS: WHITE BLOOD COUNT 1.8 K/uL (4.8-10.8)
[2017-04-24 07:21] LABS: BLOOD UREA NITROGEN 9 mg/dl (9-20); CALCIUM 6.8 mg/dL (8.4-10.2); GFR AFRICAN-AMERICAN > 60; GFR NON-AFRICAN AMERICAN > 60
[2017-04-24] MEDS: Povidone Iodine Topical 10% Sol TOP SCH (10:06)
--- NOTE | 2017-04-24 10:55 | RAD ---
HISTORY: FUO COMPARISON: Comparison chest dated 04/19/2017 TECHNIQUE: Chest PA and lateral FINDINGS: LUNGS: Poor inspiration with low lung volumes, mild crowded bronchovascular markings and mild bibasilar atelectasis left greater than right. PLEURA: No significant pleural effusion identified. No pneumothorax apparent. CARDIOVASCULAR: Normal. OSSEOUS STRUCTURES: No significant abnormalities. VISUALIZED UPPER ABDOMEN: Normal. OTHER FINDINGS: None. IMPRESSION: Poor inspiration with low lung volumes, mild crowded bronchovascular markings and mild bibasilar atelectasis left greater than right.
[2017-04-24 12:36] LABS: URINE BILIRUBIN NEGATIVE (NEGATIVE); URINE BLOOD MODERATE (NEGATIVE); URINE CLARITY CLEAR (Clear); URINE COLOR YELLOW (YELLOW); URINE GLUCOSE (UA) NEG (Normal); URINE LEUKOCYTE ESTERASE NEG Leu/uL (Negative); URINE NITRATE NEGATIVE (NEGATIVE); URINE PROTEIN NEGATIVE (NEGATIVE); URINE UROBILINOGEN 0.2-1.0 mg/dL (0.2-1.0)
--- NOTE | 2017-04-24 17:10 | CP.PCM.PN ---
Subjective - Date & Time of Evaluation Date of Evaluation: 04/24/17 Time of Evaluation: 13:00 - Subjective Subjective: Patient seen and examined bedside. Denies any pain. With episodes of chills and fever. 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 Objective - Vital Signs/Intake and Output Vital Signs (last 24 hours): Temp Pulse Resp BP Pulse Ox 97.7 F 118 H 20 115/77 94 L 04/24/17 16:00 04/24/17 16:00 04/24/17 16:00 04/24/17 16:00 04/24/17 16:00 Intake and Output: 04/24/17 04/24/17 06:59 18:59 Intake Total 4090 Output Total 1375 Balance 2715 - Medications Medications: Current Medications Acetaminophen (Tylenol 325mg Tab) 650 mg PO Q4 PRN PRN Reason: Fever >100.4 F Last Admin: 04/24/17 03:08 Dose: 650 mg Famotidine (Pepcid) 20 mg PO BID [facility] Last Admin: 04/24/17 10:05 Dose: 20 mg Vancomycin HCl 1 gm/ Sodium (Chloride) 250 mls @ 166.667 mls/hr IVPB Q12 [facility] Last Admin: 04/24/17 10:05 Dose: 166.667 mls/hr Meropenem 1 gm/ Sodium (Chloride) 100 mls @ 100 mls/hr IVPB 0600,1400,2200 [facility] Last Admin: 04/24/17 15:18 Dose: 100 mls/hr Sodium Chloride (Sodium Chloride 0.9%) 1,000 mls @ 200 mls/hr IV .Q5H [facility] Stop: 04/24/17 20:17 Last Admin: 04/24/17 06:04 Dose: 200 mls/hr Ibuprofen (Motrin Tab) 600 mg PO Q6 PRN PRN Reason: Fever >100.4 F Last Admin: 04/24/17 04:42 Dose: 600 mg Meperidine HCl (Demerol) 12.5 mg IVP Q5M PRN PRN Reason: Shivering/Rigor Last Admin: 04/22/17 16:46 Dose: 12.5 mg Povidone Iodine (Betadine 10% Topical Soln) 20 ml TOP DAILY [facility] Last Admin: 06/01/17 10:06 Dose: 1 applic Sodium Chloride (Sodium Chloride Tab) 1 gm PO DAILY [facility] Last Admin: 04/24/17 10:04 Dose: 1 gm - Labs Labs: 04/24/17 05:50 04/24/17 05:50 PT 12.5 SECONDS (9.6-11.2) H 04/22/17 05:15 INR 1.20 (0.92-1.08) H 04/22/17 05:15 APTT 33.0 SECONDS (23.3-32.5) H 04/22/17 05:15 - Constitutional Appears: Non-toxic, No Acute Distress - Head Exam Head Exam: ATRAUMATIC, NORMOCEPHALIC - Eye Exam Eye Exam: EOMI, Normal appearance, PERRL Pupil Exam: NORMAL ACCOMODATION - ENT Exam ENT Exam: Mucous Membranes Moist, Normal Exam - Neck Exam Neck Exam: Full ROM, Normal Inspection - Respiratory Exam Respiratory Exam: Clear to Ausculation Bilateral, NORMAL BREATHING PATTERN. absent: Rales, Rhonchi, Wheezes - Cardiovascular Exam Cardiovascular Exam: REGULAR RHYTHM, RRR, +S1, +S2. absent: JVD - GI/Abdominal Exam GI & Abdominal Exam: Soft, Normal Bowel Sounds. absent: Distended, Guarding, Tenderness, Rebound - Rectal Exam Rectal Exam: Deferred - Exam Exam: Scrotal Swelling (midline surgical incisoon with yari drain in place ) External exam: Swelling - Extremities Exam Extremities Exam: Full ROM, Normal Capillary Refill, Normal Inspection. absent : Pedal Edema - Back Exam Back Exam: NORMAL INSPECTION - Neurological Exam Neurological Exam: Alert, Awake, CN II-XII Intact, Oriented x3 - Psychiatric Exam Psychiatric exam: Normal Affect - Skin Skin Exam: Dry, Warm Assessment and Plan - Assessment and Plan (Free Text) Assessment: 41 yo male with no significant PMH , from [facility] , came in complaining of enlarged scrotum for 1 month, after lifting heavy objects and macerated scrotal skin. Denied scrotal pain, pruritus , dysuria or penile discharge. Admitted having on and off fever. 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 Hem/onc was consulted and he underwent bone marrow biopsy for pancytopenia . Preliminary pathology report from bone marrow and scrotum shows lymphoproliferative disease. Pending additional staining and final report. 1. 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 Estes Wound cx growing ESBL E coli and MSSA Continue IV antibiotics, wound care daily Discussed with Dr. Estes. recommend referral to tertiary center since patient might need more extensive intervention and reconstructive surgery in the future Blood c/s and Urine c/s : negative, HIV and RPR negaticve, lactic acid - normal on Meropenem and vancomycin as per ID CT abdomen and pelvis showed no acute pathology except enlarged adrenals Surgery consulted- Dr Bermudez Continue aggressive fluid resuscitation Tylenol and Motrin PRN for fever control 2. Hyponatremia Continue NS 3. 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 Pending additional staining and final report Patient is aware of possible diagnosis 4. DVT prophylaxis SCD no anticoag sec to low Platelet
--- NOTE | 2017-04-24 17:36 | CP.PCM.PN ---
Subjective - Date & Time of Evaluation Date of Evaluation: 04/24/17 Time of Evaluation: 17:00 - Subjective Subjective: ID Note- Pt. seen and examined today with the nurse . as per nurse pt. has prim ranjith drain in place in the scrotal region as per for scrotal irrigation and the gangrenous regions were debrided by . pt. s/p BM biopsy 2 days ago and as per hospitalist DR. Villa who spoke with pathologist lymphoproliferative process but special stains pending. pt. resting in bed but continues to shiver and complain of being cold but denies any pain anywhere. Objective - Vital Signs/Intake and Output Vital Signs (last 24 hours): Temp Pulse Resp BP Pulse Ox 97.7 F 118 H 20 115/77 94 L 04/24/17 16:00 04/24/17 16:37 04/24/17 16:00 04/24/17 16:00 04/24/17 16:00 Intake and Output: 04/24/17 04/24/17 06:59 18:59 Intake Total 4090 Output Total 1375 Balance 2715 - Medications Medications: Current Medications Acetaminophen (Tylenol 325mg Tab) 650 mg PO Q4 PRN PRN Reason: Fever >100.4 F Last Admin: 04/24/17 03:08 Dose: 650 mg Famotidine (Pepcid) 20 mg PO BID [facility] Last Admin: 04/24/17 10:05 Dose: 20 mg Vancomycin HCl 1 gm/ Sodium (Chloride) 250 mls @ 166.667 mls/hr IVPB Q12 [facility] Last Admin: 04/24/17 10:05 Dose: 166.667 mls/hr Meropenem 1 gm/ Sodium (Chloride) 100 mls @ 100 mls/hr IVPB 0600,1400,2200 [facility] Last Admin: 04/24/17 15:18 Dose: 100 mls/hr Sodium Chloride (Sodium Chloride 0.9%) 1,000 mls @ 200 mls/hr IV .Q5H [facility] Stop: 04/24/17 20:17 Last Admin: 04/24/17 06:04 Dose: 200 mls/hr Ibuprofen (Motrin Tab) 600 mg PO Q6 PRN PRN Reason: Fever >100.4 F Last Admin: 04/24/17 04:42 Dose: 600 mg Meperidine HCl (Demerol) 12.5 mg IVP Q5M PRN PRN Reason: Shivering/Rigor Last Admin: 04/22/17 16:46 Dose: 12.5 mg Povidone Iodine (Betadine 10% Topical Soln) 20 ml TOP DAILY [facility] Last Admin: 04/24/17 10:06 Dose: 1 applic Sodium Chloride (Sodium Chloride Tab) 1 gm PO DAILY [facility] Last Admin: 04/24/17 10:04 Dose: 1 gm - Labs Labs: - Constitutional Appears: No Acute Distress - Head Exam Head Exam: ATRAUMATIC - Neck Exam Neck Exam: Full ROM - Respiratory Exam Respiratory Exam: Clear to Ausculation Bilateral, NORMAL BREATHING PATTERN - Cardiovascular Exam Cardiovascular Exam: RRR, +S1, +S2 - GI/Abdominal Exam GI & Abdominal Exam: Soft, Normal Bowel Sounds Additional comments: NT, ND - Exam Additional comments: scrotal edema slightly less than before procedure, no malodor has primrose drain in place - Neurological Exam Neurological Exam: Alert, Oriented x3 - Additional Findings Additional findings: Laboratory Results - last 72 hr 04/20/17 04/22/17 04/22/17 07:30 05:15 05:15 WBC 2.5 L RBC 2.84 L Hgb 8.7 L Hct 25.5 L MCV 89.7 MCH 30.5 MCHC 34.0 RDW 16.6 H Plt Count 60 L MPV 10.1 Neut % (Auto) 64.7 Lymph % (Auto) 27.2 [place] % (Auto) 7.1 Eos % (Auto) 0.3 Baso % (Auto) 0.7 Neut # 1.6 L Lymph # 0.7 L [place] # 0.2 Eos # 0.0 Baso # 0.0 PT 12.5 H INR 1.20 H APTT 33.0 H Sodium Potassium Chloride Carbon Dioxide Anion Gap BUN Creatinine Est GFR ( Amer) Est GFR (Non-Af Amer) Random Glucose Serum Osmolality Lactic Acid Calcium Total Bilirubin AST ALT Alkaline Phosphatase Total Protein Albumin Globulin Albumin/Globulin Ratio Urine Color Urine Clarity Urine pH Ur Specific [place] Urine Protein Urine Glucose (UA) Urine Ketones Urine Blood Urine Nitrate Urine Bilirubin Urine Urobilinogen Ur Leukocyte Esterase Urine RBC (Auto) Urine Microscopic WBC Urine Osmolality Vancomycin Trough HSV I IgG Ab HSV II IgG Blood Type O POSITIVE Antibody Screen Negative Crossmatch See Detail BBK History Checked No verified bt 04/22/17 04/22/17 04/22/17 05:15 08:19 11:45 WBC 2.8 L RBC 2.53 L Hgb 7.7 L Hct 22.8 L MCV 90.0 MCH 30.2 MCHC 33.6 RDW 17.0 H Plt Count 75 L MPV Neut % (Auto) Lymph % (Auto) [place] % (Auto) Eos % (Auto) Baso % (Auto) Neut # Lymph # [place] # Eos # Baso # PT INR APTT Sodium 126 L Potassium 3.8 Chloride 102 Carbon Dioxide 21 L Anion Gap 7 L BUN 10 Creatinine 0.6 L Est GFR ( Amer) > 60 Est GFR (Non-Af Amer) > 60 Random Glucose 133 H Serum Osmolality 273 Lactic Acid Calcium 7.2 L Total Bilirubin 1.4 H AST 74 H ALT 63 Alkaline Phosphatase 143 H Total Protein 4.9 L Albumin 2.1 L Globulin 2.9 Albumin/Globulin Ratio 0.7 L Urine Color Urine Clarity Urine pH Ur Specific [place] Urine Protein Urine Glucose (UA) Urine Ketones Urine Blood Urine Nitrate Urine Bilirubin Urine Urobilinogen Ur Leukocyte Esterase Urine RBC (Auto) Urine Microscopic WBC Urine Osmolality Vancomycin Trough HSV I IgG Ab HSV II IgG Blood Type Antibody Screen Crossmatch BBK History Checked 04/22/17 04/23/17 04/23/17 11:45 08:05 08:05 WBC RBC Hgb Hct MCV MCH MCHC RDW Plt Count MPV Neut % (Auto) Lymph % (Auto) [place] % (Auto) Eos % (Auto) Baso % (Auto) Neut # Lymph # [place] # Eos # Baso # PT INR APTT Sodium 130 L Potassium 3.6 Chloride 104 Carbon Dioxide 21 L Anion Gap 9 L BUN 10 Creatinine 0.6 L Est GFR ( Amer) > 60 Est GFR (Non-Af Amer) > 60 Random Glucose 109 Serum Osmolality Lactic Acid Calcium 7.2 L Total Bilirubin AST ALT Alkaline Phosphatase Total Protein Albumin Globulin Albumin/Globulin Ratio Urine Color Urine Clarity Urine pH Ur Specific [place] Urine Protein Urine Glucose (UA) Urine Ketones Urine Blood Urine Nitrate Urine Bilirubin Urine Urobilinogen Ur Leukocyte Esterase Urine RBC (Auto) Urine Microscopic WBC Urine Osmolality Vancomycin Trough 10.3 H HSV I IgG Ab 39.60 H HSV II IgG <0.90 Blood Type Antibody Screen Crossmatch BBK History Checked 04/23/17 04/23/17 04/23/17 08:05 17:10 Unknown WBC 2.3 L RBC 2.66 L Hgb 8.0 L Hct 24.4 L MCV 91.7 MCH 30.1 MCHC 32.9 L RDW 16.5 H Plt Count 60 L MPV 9.9 Neut % (Auto) 65.8 Lymph % (Auto) 26.2 [place] % (Auto) 7.4 Eos % (Auto) 0.2 Baso % (Auto) 0.4 Neut # 1.5 L Lymph # 0.6 L [place] # 0.2 Eos # 0.0 Baso # 0.0 PT INR APTT Sodium 129 L Potassium 3.5 L Chloride 105 Carbon Dioxide 20 L Anion Gap 8 L BUN 11 Creatinine 0.6 L Est GFR ( Amer) > 60 Est GFR (Non-Af Amer) > 60 Random Glucose 133 H Serum Osmolality Lactic Acid 1.6 Calcium 6.9 L Total Bilirubin 1.2 AST 106 H D ALT 63 Alkaline Phosphatase 166 H Total Protein 4.3 L Albumin 1.7 L Globulin 2.6 Albumin/Globulin Ratio 0.7 L Urine Color Urine Clarity Urine pH Ur Specific [place] Urine Protein Urine Glucose (UA) Urine Ketones Urine Blood Urine Nitrate Urine Bilirubin Urine Urobilinogen Ur Leukocyte Esterase Urine RBC (Auto) Urine Microscopic WBC Urine Osmolality Vancomycin Trough HSV I IgG Ab HSV II IgG Blood Type Antibody Screen Crossmatch BBK History Checked 04/23/17 04/24/17 04/24/17 Unknown 05:50 05:50 WBC 1.8 L* RBC 2.69 L Hgb 8.2 L Hct 24.2 L MCV 89.9 MCH 30.3 MCHC 33.8 RDW 17.1 H Plt Count 49 L MPV Neut % (Auto) Lymph % (Auto) [place] % (Auto) Eos % (Auto) Baso % (Auto) Neut # Lymph # [place] # Eos # Baso # PT INR APTT Sodium 130 L Potassium 3.5 L Chloride 107 Carbon Dioxide 18 L Anion Gap 9 L BUN 9 Creatinine 0.5 L Est GFR ( Amer) > 60 Est GFR (Non-Af Amer) > 60 Random Glucose 148 H Serum Osmolality Lactic Acid Calcium 6.8 L Total Bilirubin AST ALT Alkaline Phosphatase Total Protein Albumin Globulin Albumin/Globulin Ratio Urine Color Urine Clarity Urine pH Ur Specific [place] Urine Protein Urine Glucose (UA) Urine Ketones Urine Blood Urine Nitrate Urine Bilirubin Urine Urobilinogen Ur Leukocyte Esterase Urine RBC (Auto) Urine Microscopic WBC Urine Osmolality 569 Vancomycin Trough HSV I IgG Ab HSV II IgG Blood Type Antibody Screen Crossmatch BBK History Checked 04/24/17 04/24/17 08:30 12:00 WBC RBC Hgb Hct MCV MCH MCHC RDW Plt Count MPV Neut % (Auto) Lymph % (Auto) [place] % (Auto) Eos % (Auto) Baso % (Auto) Neut # Lymph # [place] # Eos # Baso # PT INR APTT Sodium Potassium Chloride Carbon Dioxide Anion Gap BUN Creatinine Est GFR ( Amer) Est GFR (Non-Af Amer) Random Glucose Serum Osmolality Lactic Acid Calcium Total Bilirubin AST ALT Alkaline Phosphatase Total Protein Albumin Globulin Albumin/Globulin Ratio Urine Color Yellow Urine Clarity Clear Urine pH 7.0 Ur Specific [place] 1.006 Urine Protein Negative Urine Glucose (UA) Neg Urine Ketones Negative Urine Blood Moderate Urine Nitrate Negative Urine Bilirubin Negative Urine Urobilinogen 0.2-1.0 Ur Leukocyte Esterase Neg Urine RBC (Auto) 2 Urine Microscopic WBC 2 Urine Osmolality Vancomycin Trough 9.3 HSV I IgG Ab HSV II IgG Blood Type Antibody Screen Crossmatch BBK History Checked Microbiology 04/22/17 Unknown Scrotum Gram Stain - Final 04/22/17 Unknown Scrotum Wound Culture - Preliminary 04/22/17 Unknown Scrotum Gram Stain - Final 04/22/17 Unknown Scrotum Wound Culture - Preliminary 04/20/17 05:30 Blood Blood Culture - Preliminary NO GROWTH AFTER 4 DAYS 04/18/17 18:30 Blood-Venous Blood Culture - Final NO GROWTH AFTER 5 DAYS 04/18/17 18:30 Blood-Venous Gram Stain - Final 04/18/17 19:00 Blood-Venous Blood Culture - Final NO GROWTH AFTER 5 DAYS 04/18/17 19:00 Blood-Venous Gram Stain - Final 04/16/17 21:48 Blood-Venous Blood Culture - Final NO GROWTH AFTER 5 DAYS 04/16/17 21:48 Blood-Venous Gram Stain - Final TEST NOT PERFORMED 04/18/17 10:09 Urethra GC Culture - Final NO GC ISOLATED 04/16/17 17:00 Scrotum Gram Stain - Final 04/16/17 17:00 Scrotum Wound Culture - Final Escherichia Coli Staphylococcus Aureus 04/16/17 21:48 Urine Urine Culture - Final No Growth (<1,000 CFU/ML)Accession No. : [id number] Patient Name / ID : TONG DOMÍNGUEZ / [id number] Exam Date : 04/24/2017 08:54:03 ( Approved ) Study Comment : Sex / Age : M / 41Y Creator : Facundo Soto MD Dictator : Facundo Soto MD Global Implementation Manager : Birthing Nurse : Facundo Soto MD Approver2 : Report Date : 04/24/2017 10:49:13 My Comment : HISTORY: FUO COMPARISON: Comparison chest dated 04/19/2017 TECHNIQUE: Chest PA and lateral FINDINGS: LUNGS: Poor inspiration with low lung volumes, mild crowded bronchovascular markings and mild bibasilar atelectasis left greater than right. PLEURA: No significant pleural effusion identified. No pneumothorax apparent. CARDIOVASCULAR: Normal. OSSEOUS STRUCTURES: No significant abnormalities. VISUALIZED UPPER ABDOMEN: Normal. OTHER FINDINGS: None. IMPRESSION: Poor inspiration with low lung volumes, mild crowded bronchovascular markings and mild bibasilar atelectasis left greater than right Assessment and Plan (1) Left hydrocele Status: Acute (2) Fever Status: Acute (3) Scrotal edema Status: Acute (4) Pancytopenia Status: Acute - Assessment and Plan (Free Text) Assessment: A/P- 41 year old male admitted with testicular pain, edema and fever found to have large left hydrocele on imaging, no hydronephrosis on ct report. pt s/o scrotal ebridement and left orchiectomy by POD #2 for Osvaldo's gangrene continues to spike yemp of 103 daily despite being on very broad spectrum antibiotics. s/p BM bx 2 days ago and prelim as per pathologist lymphoproliferative process, await final diagnosis. blood cx- neg x 4 urine cx- negative urethral cx- neg for GC Initial fluid cx from scrotal region- MSSA and ESBL e.coli CXR- negative as per report plan- await result of BM biopsy . check 2 more blood cx. continue with IV meropenem for ESBl e.coli wound cx. ay #7 continue with IV vancomycin for the MSSA wound cx. keep trough <15. day #7. scrotal irrigation as per nursing staff and . may need f/u debridements as well. All above d/w patient at length. All above d/w Hospitalist as well.
--- NOTE | 2017-04-24 18:40 | CP.PCM.PN ---
Subjective - Date & Time of Evaluation Date of Evaluation: 04/24/17 Time of Evaluation: 18:37 - Subjective Subjective: Pt examined bandage changed,drain removed, penile edema caused by scrotal support being to tight, staff again instructed to continue Irrigation and get supensory with no hole and elastic cup. [place] Objective - Vital Signs/Intake and Output Vital Signs (last 24 hours): Temp Pulse Resp BP Pulse Ox 100.4 F H 118 H 20 115/77 94 L 04/24/17 17:36 04/24/17 16:37 04/24/17 16:00 04/24/17 16:00 04/24/17 16:00 Intake and Output: 04/24/17 04/24/17 06:59 18:59 Intake Total 4090 Output Total 1375 Balance 2715 - Medications Medications: Current Medications Acetaminophen (Tylenol 325mg Tab) 650 mg PO Q4 PRN PRN Reason: Fever >100.4 F Last Admin: 04/24/17 03:08 Dose: 650 mg Famotidine (Pepcid) 20 mg PO BID [facility] Last Admin: 04/24/17 17:36 Dose: 20 mg Vancomycin HCl 1 gm/ Sodium (Chloride) 250 mls @ 166.667 mls/hr IVPB Q12 [facility] Last Admin: 04/24/17 10:05 Dose: 166.667 mls/hr Meropenem 1 gm/ Sodium (Chloride) 100 mls @ 100 mls/hr IVPB 0600,1400,2200 [facility] Last Admin: 04/24/17 15:18 Dose: 100 mls/hr Sodium Chloride (Sodium Chloride 0.9%) 1,000 mls @ 200 mls/hr IV .Q5H [facility] Stop: 04/24/17 20:17 Last Admin: 04/24/17 06:04 Dose: 200 mls/hr Ibuprofen (Motrin Tab) 600 mg PO Q6 PRN PRN Reason: Fever >100.4 F Last Admin: 04/24/17 17:36 Dose: 600 mg Meperidine HCl (Demerol) 12.5 mg IVP Q5M PRN PRN Reason: Shivering/Rigor Last Admin: 04/22/17 16:46 Dose: 12.5 mg Povidone Iodine (Betadine 10% Topical Soln) 20 ml TOP DAILY [facility] Last Admin: 04/24/17 10:06 Dose: 1 applic Sodium Chloride (Sodium Chloride Tab) 1 gm PO DAILY [facility] Last Admin: 04/24/17 10:04 Dose: 1 gm - Labs Labs: 04/24/17 05:50 04/24/17 05:50 PT 12.5 SECONDS (9.6-11.2) H 04/22/17 05:15 INR 1.20 (0.92-1.08) H 04/22/17 05:15 APTT 33.0 SECONDS (23.3-32.5) H 04/22/17 05:15
[2017-04-25] MEDS ORDERED: Sodium Chloride 0.9% 1,000 ML IV SCH ×2 (04:45→12:04)
[2017-04-25] MEDS: Meropenem 1 GM in Sodium Chloride 0.9% 100 ML IVPB SCH ×2 (05:05→17:31)
[2017-04-25 06:54] LABS: HEMOGLOBIN 7.8 g/dL (12.0-18.0); MEAN CORPUSCULAR HEMOGLOBIN 30.8 pg (27.0-31.0); MEAN CORPUSCULAR HGB CONC 33.8 g/dL (33.0-37.0); RBC 2.54 Mil/uL (4.40-5.90); RED CELL DISTRIBUTION WIDTH 16.7 % (11.5-14.5)
[2017-04-25 07:23] LABS: BLOOD UREA NITROGEN 7 mg/dl (9-20); CALCIUM 7.1 mg/dL (8.4-10.2); GFR AFRICAN-AMERICAN > 60; GFR NON-AFRICAN AMERICAN > 60
[2017-04-25] MEDS: Povidone Iodine Topical 10% Sol TOP SCH (08:51)
--- NOTE | 2017-04-25 11:53 | CP.PCM.PN ---
Subjective - Date & Time of Evaluation Date of Evaluation: 04/25/17 Time of Evaluation: 17:39 - Subjective Subjective: patient seen and examined at bedside pt +rigors and fever Tmax 101.9 overnight +bairhugger today pt tachycardic 170s with systolic bp between 120-130, lopressor 5 IVP given patient then became hypotensive 70-80 systolics, and febrile later in the day. 2 liters NS bolus given with response to fluids, BP now 98/57 HR 110 in addition, patient was seen along with Dr. [facility], Dr. Rick today Recommendation is to transfer patient to tertiary care center given need for extensive debridement as well as reconstructive surgery for worsening Fourniers gangrene. 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 Contacted [facility], Dr. Jesus Manuel Lackey [facility] who specializes in reconstructive [phone]. Patient is accepted and bed has been reserved. Patient to first receive 2 units PRBC as well as 1 unit platelets prior to transfer. Objective - Vital Signs/Intake and Output Vital Signs (last 24 hours): Temp Pulse Resp BP Pulse Ox 99 F 107 H 16 90/54 L 95 04/25/17 08:22 04/25/17 08:22 04/25/17 08:22 04/25/17 08:22 04/25/17 08:22 Intake and Output: 04/25/17 04/25/17 06:59 18:59 Intake Total 2250 250 Output Total 800 Balance 1450 250 - Medications Medications: Current Medications Acetaminophen (Tylenol 325mg Tab) 650 mg PO Q4 PRN PRN Reason: Fever >100.4 F Last Admin: 04/24/17 03:08 Dose: 650 mg Famotidine (Pepcid) 20 mg PO BID [facility] Last Admin: 04/25/17 08:52 Dose: 20 mg Vancomycin HCl 1 gm/ Sodium (Chloride) 250 mls @ 166.667 mls/hr IVPB Q12 [facility] Last Admin: 04/25/17 08:53 Dose: 166.667 mls/hr Meropenem 1 gm/ Sodium (Chloride) 100 mls @ 100 mls/hr IVPB 0600,1400,2200 [facility] Last Admin: 04/25/17 05:05 Dose: 100 mls/hr Sodium Chloride (Sodium Chloride 0.9%) 1,000 mls @ 100 mls/hr IV .Q10H [facility] Stop: 04/26/17 04:38 Ibuprofen (Motrin Tab) 600 mg PO Q6 PRN PRN Reason: Fever >100.4 F Last Admin: 04/25/17 02:57 Dose: 600 mg Meperidine HCl (Demerol) 12.5 mg IVP Q5M PRN PRN Reason: Shivering/Rigor Last Admin: 04/22/17 16:46 Dose: 12.5 mg Povidone Iodine (Betadine 10% Topical Soln) 20 ml TOP DAILY [facility] Last Admin: 04/25/17 08:51 Dose: 1 applic Sodium Chloride (Sodium Chloride Tab) 1 gm PO DAILY [facility] Last Admin: 04/24/17 10:04 Dose: 1 gm - Labs Labs: 04/25/17 05:45 04/25/17 05:45 PT 12.5 SECONDS (9.6-11.2) H 04/22/17 05:15 INR 1.20 (0.92-1.08) H 04/22/17 05:15 APTT 33.0 SECONDS (23.3-32.5) H 04/22/17 05:15 - Constitutional Appears: Non-toxic, In Acute Distress (mild) - Head Exam Head Exam: ATRAUMATIC, NORMOCEPHALIC - Eye Exam Eye Exam: EOMI, Normal appearance, PERRL Pupil Exam: NORMAL ACCOMODATION - ENT Exam ENT Exam: Mucous Membranes Dry, Normal Oropharynx - Respiratory Exam Respiratory Exam: Clear to Ausculation Bilateral, NORMAL BREATHING PATTERN - Cardiovascular Exam Cardiovascular Exam: RRR, +S1, +S2 - GI/Abdominal Exam GI & Abdominal Exam: Soft, Normal Bowel Sounds. absent: Tenderness, Mass - Exam Exam: Scrotal Swelling (massive scrotal swelling, erythematous and tender, macerated appearing skin. ) - Extremities Exam Extremities Exam: Full ROM, Normal Capillary Refill - Back Exam Back Exam: absent: CVA tenderness (L), CVA tenderness (R) - Neurological Exam Neurological Exam: Alert, Awake, Oriented x3 - Psychiatric Exam Psychiatric exam: Normal Affect, Normal Mood - Skin Skin Exam: Dry, Warm Assessment and Plan - Assessment and Plan (Free Text) Plan: 41 yo male with no significant PMH , from [facility] , came in complaining of enlarged scrotum for 1 month, after lifting heavy objects and macerated scrotal skin. Denied scrotal pain, pruritus , dysuria or penile discharge. Admitted having on and off fever. 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 Hem/onc was consulted and he underwent bone marrow biopsy for pancytopenia . Preliminary pathology report from bone marrow and scrotum shows lymphoproliferative disease. Pending additional staining and final report. 04/25/17 pt +rigors and fever Tmax 101.9 overnight tachycardic 170s with systolic bp between 120-130, lopressor 5 IVP given patient then became hypotensive 70-80 systolics, and febrile later in the day. 2 liters NS bolus given with response to fluids, BP now 98/57 HR 110 @ 6pm in addition, patient was seen along with Dr. [facility], Dr. Rick today Recommendation is to transfer patient to tertiary care center given need for extensive debridement as well as reconstructive surgery for worsening Fourniers gangrene. 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 Contacted [facility], Dr. Jesus Manuel [facility]key [facility] who specializes in reconstructive [phone]. Patient is accepted and bed has been reserved. Patient to first receive 2 units PRBC as well as 1 unit platelets prior to transfer. 1. 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 Estes Wound cx growing ESBL E coli and MSSA Continue IV antibiotics, wound care daily Discussed with Dr. Estes. recommend referral to tertiary center since patient might need more extensive intervention and reconstructive surgery in the future Blood c/s and Urine c/s : negative, HIV and RPR negaticve, lactic acid - normal on Meropenem and vancomycin as per ID CT abdomen and pelvis showed no acute pathology except enlarged adrenals Surgery consulted- Dr Bermudez Continue aggressive fluid resuscitation Tylenol and Motrin PRN for fever control 2. Hyponatremia Continue NS 3. 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 Pending additional staining and final report Patient is aware of possible diagnosis 4. DVT prophylaxis SCD no anticoag sec to low Platelet
--- NOTE | 2017-04-25 12:32 | CP.PCM.PN ---
Subjective - Date & Time of Evaluation Date of Evaluation: 04/25/17 Time of Evaluation: 12:32 - Subjective Subjective: Wound healig no sig drainage frow wound. cultures + for scant Ecoli and staff, prob.contamination. primilanary path shows infiltrative process consistant with lymphoproliferitive disorder.. A lympho prolifiterive infiltration of testicle and scrotum Suggest Consider transfer to [facility], further RX by Oncology and ID. Estes Objective - Vital Signs/Intake and Output Vital Signs (last 24 hours): Temp Pulse Resp BP Pulse Ox 101.2 F H 107 H 16 90/54 L 95 04/25/17 12:23 04/25/17 08:22 04/25/17 08:22 04/25/17 08:22 04/25/17 08:22 Intake and Output: 04/25/17 04/25/17 06:59 18:59 Intake Total 2250 250 Output Total 800 Balance 1450 250 - Medications Medications: Current Medications Acetaminophen (Tylenol 325mg Tab) 650 mg PO Q4 PRN PRN Reason: Fever >100.4 F Last Admin: 04/25/17 12:23 Dose: 650 mg Famotidine (Pepcid) 20 mg PO BID [facility] Last Admin: 04/25/17 08:52 Dose: 20 mg Vancomycin HCl 1 gm/ Sodium (Chloride) 250 mls @ 166.667 mls/hr IVPB Q12 [facility] Last Admin: 04/25/17 08:53 Dose: 166.667 mls/hr Meropenem 1 gm/ Sodium (Chloride) 100 mls @ 100 mls/hr IVPB 0600,1400,2200 [facility] Last Admin: 04/25/17 05:05 Dose: 100 mls/hr Sodium Chloride (Sodium Chloride 0.9%) 1,000 mls @ 150 mls/hr IV .Q6H40M [facility] Stop: 04/26/17 04:38 Ibuprofen (Motrin Tab) 600 mg PO Q6 PRN PRN Reason: Fever >100.4 F Last Admin: 04/25/17 02:57 Dose: 600 mg Meperidine HCl (Demerol) 12.5 mg IVP Q5M PRN PRN Reason: Shivering/Rigor Last Admin: 04/22/17 16:46 Dose: 12.5 mg Povidone Iodine (Betadine 10% Topical Soln) 20 ml TOP DAILY [facility] Last Admin: 04/25/17 08:51 Dose: 1 applic Sodium Chloride (Sodium Chloride Tab) 1 gm PO DAILY [facility] Last Admin: 04/24/17 10:04 Dose: 1 gm - Labs Labs: 04/25/17 05:45 04/25/17 05:45 PT 12.5 SECONDS (9.6-11.2) H 04/22/17 05:15 INR 1.20 (0.92-1.08) H 04/22/17 05:15 APTT 33.0 SECONDS (23.3-32.5) H 04/22/17 05:15
[2017-04-25] MEDS ORDERED: Metoprolol 1 mg/ml Inj IVP STA (12:49)
[2017-04-25] MEDS ORDERED: Metoprolol 1 mg/ml Inj IVP ONE (12:58)
--- NOTE | 2017-04-25 15:23 | CP.PCM.PN ---
Subjective - Date & Time of Evaluation Date of Evaluation: 04/25/17 Time of Evaluation: 12:00 - Subjective Subjective: ID Note- pt. seen along with and at [facility]. Pt. continues to have shivers and fever spikes .. As per no ismael pus during debridement and was mostly necrotic tissue but as per orchiectomy site healing well. still has some discharge but no malodor and clear colored. as per prelim testicular nad BM bx suggestive of lymphoproliferative proess. as per advice to transfer to tertiary care setting . Objective - Vital Signs/Intake and Output Vital Signs (last 24 hours): Temp Pulse Resp BP Pulse Ox 101.2 F H 173 H 22 121/68 96 04/25/17 12:32 04/25/17 13:06 04/25/17 12:32 04/25/17 13:06 04/25/17 12:32 Intake and Output: 04/25/17 04/25/17 06:59 18:59 Intake Total 2250 250 Output Total 800 Balance 1450 250 - Medications Medications: Current Medications Acetaminophen (Tylenol 325mg Tab) 650 mg PO Q4 PRN PRN Reason: Fever >100.4 F Last Admin: 04/25/17 12:23 Dose: 650 mg Famotidine (Pepcid) 20 mg PO BID [facility] Last Admin: 04/25/17 08:52 Dose: 20 mg Vancomycin HCl 1 gm/ Sodium (Chloride) 250 mls @ 166.667 mls/hr IVPB Q12 [facility] Last Admin: 04/25/17 08:53 Dose: 166.667 mls/hr Meropenem 1 gm/ Sodium (Chloride) 100 mls @ 100 mls/hr IVPB 0600,1400,2200 [facility] Last Admin: 04/25/17 05:05 Dose: 100 mls/hr Sodium Chloride (Sodium Chloride 0.9%) 1,000 mls @ 150 mls/hr IV .Q6H40M [facility] Stop: 04/26/17 04:38 Ibuprofen (Motrin Tab) 600 mg PO Q6 PRN PRN Reason: Fever >100.4 F Last Admin: 04/25/17 02:57 Dose: 600 mg Meperidine HCl (Demerol) 12.5 mg IVP Q5M PRN PRN Reason: Shivering/Rigor Last Admin: 04/22/17 16:46 Dose: 12.5 mg Povidone Iodine (Betadine 10% Topical Soln) 20 ml TOP DAILY [facility] Last Admin: 04/25/17 08:51 Dose: 1 applic Sodium Chloride (Sodium Chloride Tab) 1 gm PO DAILY [facility] Last Admin: 04/24/17 10:04 Dose: 1 gm - Labs Labs: - Additional Findings Additional findings: - Constitutional Appears: No Acute Distress - Head Exam Head Exam: ATRAUMATIC - Neck Exam Neck Exam: Full ROM - Respiratory Exam Respiratory Exam: Clear to Ausculation Bilateral, NORMAL BREATHING PATTERN - Cardiovascular Exam Cardiovascular Exam: RRR, +S1, +S2 - GI/Abdominal Exam GI & Abdominal Exam: Soft, Normal Bowel Sounds Additional comments: NT, ND - Exam Additional comments: scrotal edema less than before procedure, no malodor no drain in place anymore sutures in place. - Neurological Exam Neurological Exam: Alert, Oriented x 3 Laboratory Results - last 72 hr 04/20/17 04/23/17 04/23/17 07:30 08:05 08:05 WBC RBC Hgb Hct MCV MCH MCHC RDW Plt Count MPV Neut % (Auto) Lymph % (Auto) [place] % (Auto) Eos % (Auto) Baso % (Auto) Neut # Lymph # [place] # Eos # Baso # Sodium Potassium Chloride Carbon Dioxide Anion Gap BUN Creatinine Est GFR ( Amer) Est GFR (Non-Af Amer) Random Glucose Lactic Acid Calcium Total Bilirubin AST ALT Alkaline Phosphatase Total Protein Albumin Globulin Albumin/Globulin Ratio Urine Color Urine Clarity Urine pH Ur Specific [place] Urine Protein Urine Glucose (UA) Urine Ketones Urine Blood Urine Nitrate Urine Bilirubin Urine Urobilinogen Ur Leukocyte Esterase Urine RBC (Auto) Urine Microscopic WBC Urine Osmolality Vancomycin Trough 10.3 H HSV I IgG Ab 36.00 H HSV II IgG <0.90 Blood Type O POSITIVE Antibody Screen Negative Crossmatch See Detail BBK History Checked No verified bt 04/23/17 04/23/17 04/23/17 08:05 17:10 Unknown WBC 2.3 L RBC 2.66 L Hgb 8.0 L Hct 24.4 L MCV 91.7 MCH 30.1 MCHC 32.9 L RDW 16.5 H Plt Count 60 L MPV 9.9 Neut % (Auto) 65.8 Lymph % (Auto) 26.2 [place] % (Auto) 7.4 Eos % (Auto) 0.2 Baso % (Auto) 0.4 Neut # 1.5 L Lymph # 0.6 L [place] # 0.2 Eos # 0.0 Baso # 0.0 Sodium 129 L Potassium 3.5 L Chloride 105 Carbon Dioxide 20 L Anion Gap 8 L BUN 11 Creatinine 0.6 L Est GFR ( Amer) > 60 Est GFR (Non-Af Amer) > 60 Random Glucose 133 H Lactic Acid 1.6 Calcium 6.9 L Total Bilirubin 1.2 AST 106 H D ALT 63 Alkaline Phosphatase 166 H Total Protein 4.3 L Albumin 1.7 L Globulin 2.6 Albumin/Globulin Ratio 0.7 L Urine Color Urine Clarity Urine pH Ur Specific [place] Urine Protein Urine Glucose (UA) Urine Ketones Urine Blood Urine Nitrate Urine Bilirubin Urine Urobilinogen Ur Leukocyte Esterase Urine RBC (Auto) Urine Microscopic WBC Urine Osmolality Vancomycin Trough HSV I IgG Ab HSV II IgG Blood Type Antibody Screen Crossmatch BBK History Checked 04/23/17 04/24/17 04/24/17 Unknown 05:50 05:50 WBC 1.8 L* RBC 2.69 L Hgb 8.2 L Hct 24.2 L MCV 89.9 MCH 30.3 MCHC 33.8 RDW 17.1 H Plt Count 49 L MPV Neut % (Auto) Lymph % (Auto) [place] % (Auto) Eos % (Auto) Baso % (Auto) Neut # Lymph # [place] # Eos # Baso # Sodium 130 L Potassium 3.5 L Chloride 107 Carbon Dioxide 18 L Anion Gap 9 L BUN 9 Creatinine 0.5 L Est GFR ( Amer) > 60 Est GFR (Non-Af Amer) > 60 Random Glucose 148 H Lactic Acid Calcium 6.8 L Total Bilirubin AST ALT Alkaline Phosphatase Total Protein Albumin Globulin Albumin/Globulin Ratio Urine Color Urine Clarity Urine pH Ur Specific [place] Urine Protein Urine Glucose (UA) Urine Ketones Urine Blood Urine Nitrate Urine Bilirubin Urine Urobilinogen Ur Leukocyte Esterase Urine RBC (Auto) Urine Microscopic WBC Urine Osmolality 569 Vancomycin Trough HSV I IgG Ab HSV II IgG Blood Type Antibody Screen Crossmatch BBK History Checked 04/24/17 04/24/17 04/25/17 08:30 12:00 05:45 WBC 2.0 L* RBC 2.54 L Hgb 7.8 L Hct 23.1 L MCV 91.0 MCH 30.8 MCHC 33.8 RDW 16.7 H Plt Count 41 L MPV Neut % (Auto) Lymph % (Auto) [place] % (Auto) Eos % (Auto) Baso % (Auto) Neut # Lymph # [place] # Eos # Baso # Sodium Potassium Chloride Carbon Dioxide Anion Gap BUN Creatinine Est GFR ( Amer) Est GFR (Non-Af Amer) Random Glucose Lactic Acid Calcium Total Bilirubin AST ALT Alkaline Phosphatase Total Protein Albumin Globulin Albumin/Globulin Ratio Urine Color Yellow Urine Clarity Clear Urine pH 7.0 Ur Specific [place] 1.006 Urine Protein Negative Urine Glucose (UA) Neg Urine Ketones Negative Urine Blood Moderate Urine Nitrate Negative Urine Bilirubin Negative Urine Urobilinogen 0.2-1.0 Ur Leukocyte Esterase Neg Urine RBC (Auto) 2 Urine Microscopic WBC 2 Urine Osmolality Vancomycin Trough 9.3 HSV I IgG Ab HSV II IgG Blood Type Antibody Screen Crossmatch BBK History Checked 04/25/17 05:45 WBC RBC Hgb Hct MCV MCH MCHC RDW Plt Count MPV Neut % (Auto) Lymph % (Auto) [place] % (Auto) Eos % (Auto) Baso % (Auto) Neut # Lymph # [place] # Eos # Baso # Sodium 130 L Potassium 3.2 L Chloride 106 Carbon Dioxide 20 L Anion Gap 7 L BUN 7 L Creatinine 0.5 L Est GFR ( Amer) > 60 Est GFR (Non-Af Amer) > 60 Random Glucose 133 H Lactic Acid Calcium 7.1 L Total Bilirubin AST ALT Alkaline Phosphatase Total Protein Albumin Globulin Albumin/Globulin Ratio Urine Color Urine Clarity Urine pH Ur Specific [place] Urine Protein Urine Glucose (UA) Urine Ketones Urine Blood Urine Nitrate Urine Bilirubin Urine Urobilinogen Ur Leukocyte Esterase Urine RBC (Auto) Urine Microscopic WBC Urine Osmolality Vancomycin Trough HSV I IgG Ab HSV II IgG Blood Type Antibody Screen Crossmatch BBK History Checked Microbiology 04/22/17 Unknown Scrotum Gram Stain - Final 04/22/17 Unknown Scrotum Wound Culture - Preliminary Yeast Species 04/22/17 Unknown Scrotum Gram Stain - Final 04/22/17 Unknown Scrotum Wound Culture - Preliminary Yeast Species 04/24/17 12:00 Urine,Clean Catch Urine Culture - Final No Growth (<1,000 CFU/ML) 04/20/17 05:30 Blood Blood Culture - Final NO GROWTH AFTER 5 DAYS 04/20/17 05:30 Blood Gram Stain - Final TEST NOT PERFORMED 04/24/17 05:30 Blood Blood Culture - Preliminary NO GROWTH AFTER 24 HOURS 04/24/17 05:30 Blood Blood Culture - Preliminary NO GROWTH AFTER 24 HOURS 04/18/17 18:30 Blood-Venous Blood Culture - Final NO GROWTH AFTER 5 DAYS 04/18/17 18:30 Blood-Venous Gram Stain - Final 04/18/17 19:00 Blood-Venous Blood Culture - Final NO GROWTH AFTER 5 DAYS 04/18/17 19:00 Blood-Venous Gram Stain - Final 04/16/17 21:48 Blood-Venous Blood Culture - Final NO GROWTH AFTER 5 DAYS 04/16/17 21:48 Blood-Venous Gram Stain - Final TEST NOT PERFORMED 04/18/17 10:09 Urethra GC Culture - Final NO GC ISOLATED 04/16/17 17:00 Scrotum Gram Stain - Final 04/16/17 17:00 Scrotum Wound Culture - Final Escherichia Coli Staphylococcus Aureus 04/16/17 21:48 Urine Urine Culture - Final No Growth (<1,000 CFU/ML) Assessment and Plan (1) Left hydrocele Status: Acute (2) Fever Status: Acute (3) Scrotal edema Status: Acute (4) Pancytopenia Status: Acute - Assessment and Plan (Free Text) Assessment: A/P- 41 year old male admitted with testicular pain, edema and fever found to have large left hydrocele on imaging, no hydronephrosis on ct report. pt s/o scrotal debridement and left orchiectomy by POD #3 for Osvaldo's gangrene continues to spike temp daily despite being on very broad spectrum antibiotics. s/p BM bx 3 days ago and prelim as per pathologist lymphoproliferative process, await final diagnosis. blood cx- neg x 4 urine cx- negative urethral cx- neg for GC Initial fluid cx from scrotal region- MSSA and ESBL e.coli scrotal bx cx- yeast x 2 no Id yet scrotal bx- prelim- lymphoproliferative process CXR- negative as per report plan- await final result of BM biopsy and scrotal bx. check 2 more blood cx. continue with IV meropenem for ESBl e.coli wound cx. ay #8. continue with IV vancomycin for the MSSA wound cx. keep trough <15. day #8. will add antifungal as well. may need f/u scrotal debridement possibly. continues to be pancytopenic most likely secondary to underlying malignancy, await final BM bx report and therapy by oncologist. All above d/w patient at length. All above d/w Hospitalist and Gu at length.
[2017-04-25] MEDS ORDERED: Micafungin 100 MG in Sodium Chloride 0.9% 100 ML IVPB ONE (15:45)
--- NOTE | 2017-04-25 15:50 | RAD ---
HISTORY: SOB COMPARISON: 04/24/2017 FINDINGS: LUNGS: No active pulmonary disease. PLEURA: No significant pleural effusion identified, no pneumothorax apparent. CARDIOVASCULAR: Normal. OSSEOUS STRUCTURES: No significant abnormalities. VISUALIZED UPPER ABDOMEN: Normal. OTHER FINDINGS: None. IMPRESSION: No active disease.
[2017-04-25] MEDS: Sodium Chloride 0.9% 1,000 ML IV SCH (16:30)
[2017-04-25 17:29] LABS: ABG ALLEN TEST YES; ARTERIAL BLOOD GAS HCO3 22.3 mmol/L (21-28); ARTERIAL BLOOD GAS O2 CAPACITY 9.8 mL/dL (16-24); ARTERIAL BLOOD GAS O2 CONTENT 9.6 ML/dL (15-23); ARTERIAL BLOOD GAS O2 SAT 98.2 % (95-98); ARTERIAL BLOOD GAS PCO2 29 mm/Hg (35-45); ARTERIAL BLOOD GAS PH 7.45 (7.35-7.45); ARTERIAL BLOOD GAS PO2 81 mm/Hg (80-100); ARTERIAL BLOOD GAS TCO2 21.1 mmol/L (22-28)
[2017-04-25] MEDS ORDERED: DiphenhydrAMINE 50 mg/ml Inj IVP STA (17:43)
[2017-04-25] MEDS ORDERED: Potassium CL 10mEq/100ml 100 ML IVPB SCH (18:00)
[2017-04-26] MEDS: Meropenem 1 GM in Sodium Chloride 0.9% 100 ML IVPB SCH (00:26)
[2017-04-26] MEDS: Sodium Chloride 0.9% 1,000 ML IV SCH ×2 (00:27→01:30)
[2017-04-26] MEDS ORDERED: Sodium Chloride 0.9% 1,000 ML IV SCH (04:45)
[2017-04-26 05:10] VITALS: O2SAT 97
[2017-04-26 08:08] LABS: BASO % 0.4 % (0.0-2.0); EOS % 0.2 % (0.0-4.0); HEMOGLOBIN 8.8 g/dL (12.0-18.0); LYMPH # 0.6 K/uL (1.0-4.3); LYMPH % 21.4 % (20.0-40.0); MEAN CELL VOLUME 89.9 fl (80.0-94.0); MEAN CORPUSCULAR HEMOGLOBIN 30.1 pg (27.0-31.0); MEAN CORPUSCULAR HGB CONC 33.4 g/dL (33.0-37.0); MEAN PLATELET VOLUME 9.7 fl (7.2-11.7); MONO # 0.2 K/uL (0.0-0.8); MONO % 6.1 % (0.0-10.0); NEUT % 71.9 % (50.0-75.0); NRBC % 0.1 % (0.0-0.0); RBC 2.91 Mil/uL (4.40-5.90); RED CELL DISTRIBUTION WIDTH 16.2 % (11.5-14.5); WHITE BLOOD COUNT 2.7 K/uL (4.8-10.8)
[2017-04-26 08:16] VITALS: BP 82/44; PULSE 102; RESP 18; TEMP 98.2
[2017-04-26 08:27] LABS: ALB/GLOB RATIO 0.6 (1.0-2.1); ALBUMIN 1.5 g/dL (3.5-5.0); ALT/SGPT 65 U/L (21-72); AST/SGOT 117 U/L (17-59); BLOOD UREA NITROGEN 8 mg/dl (9-20); CALCIUM 6.7 mg/dL (8.4-10.2); GFR AFRICAN-AMERICAN > 60; GFR NON-AFRICAN AMERICAN > 60
--- NOTE | 2017-04-26 11:58 | CP.PCM.DIS ---
Provider - Provider Date of Admission: 04/16/17 18:39 Attending physician: Osiel Rowan MD Consults: urology consult Infectious disease consult general surgery consult Hem/onc consult Time Spent in preparation of Discharge (in minutes): 15 Hospital Course - Lab Results Lab Results: Micro Results 04/24/17 05:30 Blood Blood Culture - Preliminary NO GROWTH AFTER 48 HOURS 04/24/17 05:30 Blood Blood Culture - Preliminary NO GROWTH AFTER 48 HOURS 04/22/17 Unknown Scrotum Gram Stain - Final 04/22/17 Unknown Scrotum Wound Culture - Preliminary Yeast Species 04/22/17 Unknown Scrotum Gram Stain - Final 04/22/17 Unknown Scrotum Wound Culture - Preliminary Yeast Species 04/24/17 12:00 Urine,Clean Catch Urine Culture - Final No Growth (<1,000 CFU/ML) 04/20/17 05:30 Blood Blood Culture - Final NO GROWTH AFTER 5 DAYS 04/20/17 05:30 Blood Gram Stain - Final TEST NOT PERFORMED 04/18/17 18:30 Blood-Venous Blood Culture - Final NO GROWTH AFTER 5 DAYS 04/18/17 18:30 Blood-Venous Gram Stain - Final 04/18/17 19:00 Blood-Venous Blood Culture - Final NO GROWTH AFTER 5 DAYS 04/18/17 19:00 Blood-Venous Gram Stain - Final 04/16/17 21:48 Blood-Venous Blood Culture - Final NO GROWTH AFTER 5 DAYS 04/16/17 21:48 Blood-Venous Gram Stain - Final TEST NOT PERFORMED 04/18/17 10:09 Urethra GC Culture - Final NO GC ISOLATED 04/16/17 21:48 Urine Urine Culture - Final No Growth (<1,000 CFU/ML) Most Recent Lab Values WBC 2.7 K/uL (4.8-10.8) L 04/26/17 06:30 RBC 2.91 Mil/uL (4.40-5.90) L 04/26/17 06:30 Hgb 8.8 g/dL (12.0-18.0) L 04/26/17 06:30 Hct 26.2 % (35.0-51.0) L 04/26/17 06:30 MCV 89.9 fl (80.0-94.0) 04/26/17 06:30 MCH 30.1 pg (27.0-31.0) 04/26/17 06:30 MCHC 33.4 g/dL (33.0-37.0) 04/26/17 06:30 RDW 16.2 % (11.5-14.5) H 04/26/17 06:30 Plt Count 43 K/uL (130-400) L 04/26/17 06:30 MPV 9.7 fl (7.2-11.7) 04/26/17 06:30 Neut % (Auto) 71.9 % (50.0-75.0) 04/26/17 06:30 Lymph % (Auto) 21.4 % (20.0-40.0) 04/26/17 06:30 Gordon % (Auto) 6.1 % (0.0-10.0) 04/26/17 06:30 Eos % (Auto) 0.2 % (0.0-4.0) 04/26/17 06:30 Baso % (Auto) 0.4 % (0.0-2.0) 04/26/17 06:30 Neut # 2.0 K/uL (1.8-7.0) 04/26/17 06:30 Lymph # 0.6 K/uL (1.0-4.3) L 04/26/17 06:30 Gordon # 0.2 K/uL (0.0-0.8) 04/26/17 06:30 Eos # 0.0 K/uL (0.0-0.7) 04/26/17 06:30 Baso # 0.0 K/uL (0.0-0.2) 04/26/17 06:30 ESR 23 mm/hr (0-15) H 04/16/17 17:00 Retic Count 2.6 % (0.5-1.5) H 04/17/17 18:30 PT 12.5 SECONDS (9.6-11.2) H 04/22/17 05:15 INR 1.20 (0.92-1.08) H 04/22/17 05:15 APTT 33.0 SECONDS (23.3-32.5) H 04/22/17 05:15 Fibrinogen 207 mg/dl (200-400) 04/20/17 05:30 pCO2 29 mm/Hg (35-45) L 04/25/17 17:25 pO2 81 mm/Hg (80-100) 04/25/17 17: HCO3 22.3 mmol/L (21-28) 04/25/17 17:25 ABG pH 7.45 (7.35-7.45) 04/25/17 17: ABG Total CO2 21.1 mmol/L (22-28) L 04/25/17 17:25 ABG O2 Saturation 98.2 % (95-98) H 04/25/17 17: ABG O2 Content 9.6 ML/dL (15-23) L 04/25/17: ABG Base Excess -3.4 mmol/L (-2.0-3.0) L 04/25/17: ABG Hemoglobin 7.0 g/dL (11.7-17.4) L 04/25/17: ABG Carboxyhemoglobin 1.3 % (0.5-1.5) 04/25/17: POC ABG HHb (Measured) 1.8 % (0.0-5.0) 04/25/17: ABG Methemoglobin 1.3 % (0.0-3.0) 04/25/17: ABG O2 Capacity 9.8 mL/dL (16-24) L 04/25/17: Gadiel Test Yes 04/25/17: A-a O2 Difference 168.0 mm/Hg 04/25/17: Hgb O2 Saturation 95.6 % (95.0-98.0) 04/25/17: FiO2 40.0 % 04/25/17 17: Sodium 133 mmol/l (132-148) 04/26/17 06:30 Potassium 2.9 MMOL/L (3.6-5.0) L 04/26/17 06:30 Chloride 110 mmol/L (98-107) H 04/26/17 06:30 Carbon Dioxide 19 mmol/L (22-30) L 04/26/17 06:30 Anion Gap 7 (10-20) L 04/26/17 06:30 BUN 8 mg/dl (9-20) L 04/26/17 06:30 Creatinine 0.6 mg/dL (0.8-1.5) L 04/26/17 06:30 Est GFR ( Amer) > 60 04/26/17 06:30 Est GFR (Non-Af Amer) > 60 04/26/17 06:30 Random Glucose 99 mg/dL (75-110) 04/26/17 06:30 Serum Osmolality 273 mosm/kg (272-300) 04/22/17 08:19 Lactic Acid 1.6 MMOL/L (0.7-2.1) 04/23/17 17:10 Calcium 6.7 mg/dL (8.4-10.2) L 04/26/17 06:30 Iron 57 ug/dL (49-181) 04/17/17 18:30 TIBC 243 ug/dL (250-450) L 04/17/17 18:30 % Saturation 23 % (20-55) 04/17/17 18:30 Transferrin 170.47 mg/dL (206-381) L 04/17/17 18:30 Ferritin 3040.0 ng/mL 04/17/17 18:30 Total Bilirubin 2.3 mg/dl (0.2-1.3) H 04/26/17 06:30 AST 117 U/L (17-59) H 04/26/17 06:30 ALT 65 U/L (21-72) 04/26/17 06:30 Alkaline Phosphatase 299 U/L (38-126) H D 04/26/17 06:30 Total Protein 3.9 G/DL (6.3-8.2) L 04/26/17 06:30 Albumin 1.5 g/dL (3.5-5.0) L 04/26/17 06:30 Globulin 2.4 gm/dL (2.2-3.9) 04/26/17 06:30 Albumin/Globulin Ratio 0.6 (1.0-2.1) L 04/26/17 06:30 Vitamin B12 > 1000 pg/mL (239-931) H 04/17/17 18:30 Folate 8.9 ng/mL 04/17/17 18:30 Procalcitonin 1.43 NG/ML (0.19-0.49) H 04/25/17 18:00 Cortisol AM Sample 8.6 ug/dL (4.46-22.7) 04/20/17 08:00 Urine Color Yellow (YELLOW) 04/24/17 12:00 Urine Clarity Clear (Clear) 04/24/17 12:00 Urine pH 7.0 (5.0-8.0) 04/24/17 12:00 Ur Specific [place] 1.006 (1.003-1.030) 04/24/17 12:00 Urine Protein Negative mg/dL (NEGATIVE) 04/24/17 12:00 Urine Glucose (UA) Neg mg/dL (Normal) 04/24/17 12:00 Urine Ketones Negative mg/dL (NEGATIVE) 04/24/17 12:00 Urine Blood Moderate (NEGATIVE) 04/24/17 12:00 Urine Nitrate Negative (NEGATIVE) 04/24/17 12:00 Urine Bilirubin Negative (NEGATIVE) 04/24/17 12:00 Urine Urobilinogen 0.2-1.0 mg/dL (0.2-1.0) 04/24/17 12:00 Ur Leukocyte Esterase Neg Rose/uL (Negative) 04/24/17 12:00 Urine RBC (Auto) 2 /hpf (0-3) 04/24/17 12:00 Urine Microscopic WBC 2 /hpf (0-5) 04/24/17 12:00 Ur Squamous Epith Cells < 1 /hpf (0-5) 04/17/17 09:53 Urine Bacteria Rare (<OCC) 04/16/17 21:48 Urine Osmolality 569 mosm/kg (300-1000) 04/23/17 Unknown Vancomycin Trough 9.3 ug/mL (5.0-10.0) 04/24/17 08:30 RPR Nonreactive (NONREACTIVE) 04/17/17 18:30 Hepatitis A IgM Ab Negative (NEGATIVE) 04/17/17 20:00 Hep Bs Antigen Negative (NEGATIVE) 04/17/17 20:00 Hep B Core IgM Ab Negative (NEGATIVE) 04/17/17 20:00 Hepatitis C Antibody Negative (NEGATIVE) 04/17/17 20:00 HSV I IgG Ab 36.00 index H 04/23/17 08:05 HSV II IgG <0.90 index (()) 04/23/17 08:05 HIV-1 Ab Rapid Screen Non reactive (NON REAC) 04/17/17 18:30 Blood Type O POSITIVE 04/25/17 15:00 Blood Type Confirm O POSITIVE 04/20/17 17:30 Antibody Screen Negative 04/25/17 15:00 Crossmatch See Detail 04/25/17 15:00 BBK History Checked Patient has bt 04/25/17 15:00 - Hospital Course Hospital Course: 41 yo male with no significant PMH , from [facility] , came in complaining of enlarged scrotum for 1 month, after lifting heavy objects and macerated scrotal skin. Denied scrotal pain, pruritus , dysuria or penile discharge. Admitted having on and off fever. 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 Hem/onc was consulted and he underwent bone marrow biopsy for pancytopenia . 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 patient clinically critical, developing fever and chills on and off, hypotension , tachycardia. Urology recommendation is to transfer patient to tertiary care center given due to severity of his condition in need for extensive debridement as well as reconstructive surgery for worsening Fourniers gangrene. Contacted [facility], Dr. Jesus Manuel [facility] who specializes in reconstructive [phone]. Patient is accepted and bed has been reserved. Patient received 2 units PRBC as well as 1 unit platelets prior to transfer. Patient transferred to [facility] . 1. 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 Estes Wound cx growing ESBL E coli and MSSA,Blood c/s and Urine c/s : negative, HIV and RPR negaticve, lactic acid - normal on Meropenem and vancomycin as per ID Discussed with Dr. Estes. recommend referral to tertiary center since patient might need more extensive intervention and reconstructive surgery in the future will transfer to [facility] 2. 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 Pending additional staining and final report Patient is aware of possible diagnosis Discharge Exam - Head Exam Head Exam: ATRAUMATIC, NORMOCEPHALIC - Eye Exam Eye Exam: Normal appearance, PERRL Pupil Exam: NORMAL ACCOMODATION - ENT Exam ENT Exam: Mucous Membranes Moist, Normal Exam - Neck Exam Neck exam: Normal Inspection - Respiratory Exam Respiratory Exam: Clear to PA & Lateral, NORMAL BREATHING PATTERN. absent: Rhonchi, Wheezes - Cardiovascular Exam Cardiovascular Exam: Tachycardia, +S1, +S2. absent: JVD - GI/Abdominal Exam GI & Abdominal Exam: Soft. absent: Distended, Guarding, Rebound, Tenderness - Rectal Exam Rectal Exam: Deferred - Exam Exam: Scrotal Swelling (midline surgical incision with yari drain) External exam: Swelling - Extremities Exam Extremities exam: normal capillary refill, normal inspection, pedal pulses present - Back Exam Back exam: NORMAL INSPECTION - Neurological Exam Neurological exam: Alert, CN II-XII Intact, Oriented x3, Reflexes Normal - Psychiatric Exam Psychiatric exam: Normal Affect - Skin Skin Exam: Dry, Intact, Normal Color, Warm Discharge Plan - Follow Up Plan Condition: SERIOUS Disposition: Trans to Other Acute Care Hosp Instructions: Hydrocele (DC) Additional Instructions: transfer to [facility]
--- NOTE | 2017-04-26 12:50 | CARD ---
APPROVED REPORT EKG Measurement Heart [id number] <Conclusion> PSVT Right axis deviation Low voltage QRS Nonspecific ST and T wave abnormality Abnormal ECG
--- NOTE | 2017-06-23 06:32 | OP ---
PROCEDURE DATE: 04/22/2017 PREOPERATIVE DIAGNOSES: Sepsis and gangrene of the scrotal skin and scrotal abscess. POSTOPERATIVE DIAGNOSES: Sepsis and gangrene of the scrotal skin and scrotal abscess. PROCEDURE: Radical scrotal debridement, orchiectomy, left and drainage of scrotal abscess. DESCRIPTION OF PROCEDURE: The patient was asked to sign the detailed informed consent prior to the procedure. He understands all the risks and complications of this procedure. The explanation was carried out in [place] in the presence of his family. He is aware that this procedure will not cure all of his urological problems, that he may need further surgery and medical therapy afterwards. He signed a consent and was willing to accept the risk, was brought into the room and he was draped and prepped in usual manner. Time-out was taken according to the rules and regulations of [facility]. The patient was entered through a median raphe incision, which was carried into the left hemiscrotum. There was a serous fluid in the scrotum, which was cultured and drained. The area was irrigated with antibiotic solution. The testicle showed signs of inflammation, was deeply adherent to the scrotal structures, it was dissected free of its attachments, and the cord was identified. The testicle appeared cedeño and necrotic. The scrotal skin was then addressed, what appeared to be necrotic scrotal skin, was debrided until clean, clear scrotal skin could be found. Having done this, there was very little scrotal skin left close to the scrotum. It was elected since the testicle appeared to be necrotic to remove it, this was done by dissecting the cord and ligating the artery, the vein, and the associated structures separately with double ligature of 3-0 chromic suture. Once this testicular veins, arteries, and muscular structures were ligated, the testicle was amputated and sent for pathological analysis along with the necrotic gangrenous skin easier closure and the wound was packed with iodoform gauze and the drain was left in place and it was loosely closed using 3-0 chromic suture. Dry sterile dressing was placed on the scrotum and scrotal support was used to hold the dressing in place. The patient tolerated this procedure well, and was sent to the recovery room in good condition. Peter Estes MD [facility] # [id number]
== END 2017-04-26 08:18 | disposition short-term general hospital (02) | DRG 898 ==
LOC: H.ER 15:10 → H.ERHOLD 18:39 → H.MEDSURG1 21:00 → H.TEL 04-20 08:22
PROC: 0HBAXZZ Excision of Inguinal Skin, External Approach (ICD-10-PCS; 2017-04-22)
PROC: 30233N1 Transfusion of Nonautologous Red Blood Cells into Peripheral Vein, Percutaneous Approach (ICD-10-PCS; 2017-04-22)
PROC: 07DR3ZX Extraction of Iliac Bone Marrow, Percutaneous Approach, Diagnostic (ICD-10-PCS; 2017-04-22)
PROC: 0VTB0ZZ Resection of Left Testis, Open Approach (ICD-10-PCS; principal; 2017-04-22 14:30)
DX: A41.9 Sepsis, unspecified organism (principal); N49.3 Fournier gangrene; D61.818 Other pancytopenia; I95.9 Hypotension, unspecified; E87.1 Hypo-osmolality and hyponatremia; N43.3 Hydrocele, unspecified; D63.8 Anemia in other chronic diseases classified elsewhere; N50.89 Other specified disorders of the male genital organs; B96.20 Unspecified Escherichia coli [E. coli] as the cause of diseases classified elsewhere; B95.61 Methicillin susceptible Staphylococcus aureus infection as the cause of diseases classified elsewhere; N49.2 Inflammatory disorders of scrotum